=== PATIENT | male | born 1940 | race African-American/Black ===

== ENCOUNTER 2017-02-01 16:19 | Inpatient (IN) | payer MEDICARE, OTHER ==
[~2017-02-01] VITALS: Ht 172.7 cm; Wt 58.5 kg
[~2017-02-01 16:19] MED LIST: FLOMAX0.4 MG ORAL; NAMENDA5 MG ORAL
[2017-02-01 16:27] VITALS: BP 138/74
[2017-02-01] MEDS ORDERED: LORazepam Inj 2mg/ml 1ml IV ONE ×2 (16:30→17:15)
[2017-02-01 17:37] LABS: MEAN CORPUSCULAR HEMOGLOBIN 30.2 PG (27.0-31.0); MEAN CORPUSCULAR HGB CONC 32.3 G/DL (32.0-36.0); MEAN CORPUSCULAR VOLUME 93 FL (80-99); MEAN PLATELET VOLUME 10.8 FL (6.5-10.1); PLATELET COUNT 76 K/UL (150-450); RED BLOOD COUNT 4.69 M/UL (4.70-6.10); RED CELL DISTRIBUTION WIDTH 12.3 % (11.6-14.8); WHITE BLOOD COUNT 2.7 K/UL (4.8-10.8)
[2017-02-01 17:39] LABS: ALANINE AMINOTRANSFERASE 16 U/L (12-78); ALBUMIN/GLOBULIN RATIO 0.7 (1.0-2.7); ANION GAP 6 mmol/L (5-15); ASPARTATE AMINO TRANSFERASE 44 U/L (15-37); CARBON DIOXIDE 26 MMOL/L (21-32); CHLORIDE 107 MMOL/L (98-107); CREATININE 0.9 MG/DL (0.55-1.30); LIPASE 135 U/L (73-393); REFLEX LACTIC ACID YES OR NO YES; SODIUM 140 MMOL/L (136-145); TOTAL PROTEIN 7.6 G/DL (6.4-8.2)
[2017-02-01 17:42] LABS: POTASSIUM 6.2 MMOL/L (3.5-5.1)
[2017-02-01] MEDS ORDERED: NAMENDA5 MG ORAL (17:42)
--- NOTE | 2017-02-01 18:01 | Emergency Room Report ---
History of Present Illness General Chief Complaint: Syncope Source: Family Member, EMS Present Illness HPI Patient episode where he lost consciousness. Family also claimed that there was some jerking activity to paramedics but they don't think this was a seizure. He's never had an episode like this before. Although, recently, he has had episodes where he shouts out like at the beginning of this Accucheck normal in field. He pulled out IV and was somewhat combative with EMS. Head trauma denied. The patient suffers from Alzheimer's dementia. Daughter reports episodes where he gets a reaction which seemed to "come and from the is abdomen". Today this occurred with tightening up with his arms which were clenched in front of himself in a flexed position. She states he was unresponsive at that time. This lasted less than a minute. He had decreased mentation and was more combativeness afterwards. She states that he is usually ambulatory. Incontinent - wears diaper. Further history unavailable. Allergies: Coded Allergies: NO KNOWN DRUG ALLERGIES (Unverified Allergy, Unknown, 03/22/14) Patient History Limited by: medical condition Past Medical History: see triage record, old chart reviewed Social History Narrative Daughter states no POLST, but requests DNR. Reviewed Nursing Documentation: PMH: Agreed, PSxH: Agreed Nursing Documentation-PMH Hx Cardiac Problems: No Hx Cancer: Yes Hx Gastrointestinal Problems: No Hx Neurological Problems: Yes - ALZMER Hx Dementia: Yes Hx Alzheimer's Disease: Yes Hx Memory Loss: Yes Review of Systems All Other Systems: limited Physical Exam Vital Signs Date Time Temp Pulse Resp B/P (MAP) Pulse Ox O2 Delivery O2 Flow Rate FiO2 02/01/17 16:17 87 20 100/52 98 Room Air Sp02 EP Interpretation: reviewed, normal General Appearance: alert - with eyes closed, non-toxic, thin, other - GCS 2/2/ 5, Chronically Ill Head: normocephalic Eyes: bilateral eye normal inspection ENT: moist mucus membranes Neck: supple Respiratory: lungs clear, normal breath sounds Cardiovascular #1: regular rate, rhythm Cardiovascular #2: 2+ radial (R) Gastrointestinal: normal inspection, normal bowel sounds, non tender, no mass, non-distended, scaphoid Musculoskeletal: back normal, other - strophy Neurologic: responsive, motor strength/tone normal, sensory intact Reflexes: 2+ knee (R), 2+ knee (L) Skin: normal inspection, warm/dry Medical Decision Making Diagnostic Impression: Primary Impression: Altered mental status Qualified Codes: R40.2420 - Tali coma scale score 9-12, unspecified time Additional Impression: Elevated lactic acid level ER Course Patient with decreased mentation from fairly vegetative state preceded by vocalization and muscle rigidity. DDx: seizure, syncope, arrhythmia, AMI, electrolyte abnormality, bleed, occult infection amongst others. Complex patient with acute change. Will treat with ativan for possible seizure as well as some sedation as fighting with staff. Evaluation with EKG, CT, CXR, labs. EKG no injury. CXR with chronic changes R base (unchanged). Labs with slightly elevated lactate, normal WBC and initial potassium high (hemolyzed) with normal renal function and EKG with high K changes. Repeat potassium. CT without acute changes (required some sedation to perform). No ID source of infection. Lactate could be other evidence of occult seizure. Repeat K normal. Call to Dr. Dewitt. Needs observation and neurologic evaluation to determine if this is occult seizure activity. Discussed findings with family. Admit telemetry Dr. Dewitt. Laboratory Tests Test 02/01/17 16:55 02/01/17 17:35 02/01/17 18:15 White Blood Count 2.7 K/UL (4.8-10.8) L Red Blood Count 4.69 M/UL (4.70-6.10) L Hemoglobin 14.2 G/DL (14.2-18.0) Hematocrit 43.8 % (42.0-52.0) Mean Corpuscular Volume 93 FL (80-99) Mean Corpuscular Hemoglobin 30.2 PG (27.0-31.0) Mean Corpuscular Hemoglobin Concent 32.3 G/DL (32.0-36.0) Red Cell Distribution Width 12.3 % (11.6-14.8) Platelet Count 76 K/UL (150-450) L Mean Platelet Volume 10.8 FL (6.5-10.1) H Neutrophils (%) (Auto) % (45.0-75.0) Lymphocytes (%) (Auto) % (20.0-45.0) Monocytes (%) (Auto) % (1.0-10.0) Eosinophils (%) (Auto) % (0.0-3.0) Basophils (%) (Auto) % (0.0-2.0) Differential Total Cells Counted 100 Neutrophils % (Manual) 34 % (45-75) L Lymphocytes % (Manual) 53 % (20-45) H Monocytes % (Manual) 13 % (1-10) H Eosinophils % (Manual) 0 % (0-3) Basophils % (Manual) 0 % (0-2) Band Neutrophils 0 % (0-8) Platelet Estimate Decreased L Platelet Morphology Normal Red Blood Cell Morphology Normal Prothrombin Time 10.0 SEC (9.30-11.50) Prothrombin Time INR 1.0 (0.9-1.1) PTT 22 SEC (23-33) L Sodium Level 140 MMOL/L (136-145) 142 MMOL/L (136-145) Potassium Level 6.2 MMOL/L (3.5-5.1) *H 4.2 MMOL/L (3.5-5.1) Chloride Level 107 MMOL/L (98-107) 110 MMOL/L (98-107) H Carbon Dioxide Level 26 MMOL/L (21-32) 22 MMOL/L (21-32) Anion Gap 6 mmol/L (5-15) 10 mmol/L (5-15) Blood Urea Nitrogen 10 mg/dL (7-18) 10 mg/dL (7-18) Creatinine 0.9 MG/DL (0.55-1.30) 0.9 MG/DL (0.55-1.30) Estimate Glomerular Filtration Rate mL/min (>60) mL/min (>60) Glucose Level 88 MG/DL (74-106) 85 MG/DL (74-106) Lactic Acid Level 2.50 mmol/L (0.66-2.22) H 2.30 mmol/L (0.66-2.22) H Calcium Level 9.0 MG/DL (8.5-10.1) 8.7 MG/DL (8.5-10.1) Total Bilirubin 0.6 MG/DL (0.2-1.0) Aspartate Amino Transferase (AST) 44 U/L (15-37) H Alanine Aminotransferase (ALT) 16 U/L (12-78) Alkaline Phosphatase 78 U/L (46-116) Total Creatine Kinase 202 U/L (26-308) Troponin I 0.000 ng/mL (0.000-0.056) Pro-B-Type Natriuretic Peptide 39 pg/mL (0-125) Total Protein 7.6 G/DL (6.4-8.2) Albumin 3.1 G/DL (3.4-5.0) L Globulin 4.5 g/dL Albumin/Globulin Ratio 0.7 (1.0-2.7) L Lipase 135 U/L (73-393) Urine Color Pale yellow Urine Appearance Clear Urine pH 6 (4.5-8.0) Urine Specific [place] 1.010 (1.005-1.035) Urine Protein 1+ (NEGATIVE) H Urine Glucose (UA) Negative (NEGATIVE) Urine Ketones Negative (NEGATIVE) Urine Occult Blood 2+ (NEGATIVE) H Urine Nitrite Negative (NEGATIVE) Urine Bilirubin Negative (NEGATIVE) Urine Urobilinogen Normal MG/DL (0.0-1.0) Urine Leukocyte Esterase Negative (NEGATIVE) Urine RBC 2-4 /HPF (0 - 0) H Urine WBC 0-2 /HPF (0 - 0) Urine Squamous Epithelial Cells None /LPF (NONE/OCC) Urine Amorphous Sediment Few /LPF (NONE) H Urine Bacteria Occasional /HPF (NONE) Urine Opiates Screen Negative (NEGATIVE) Urine Barbiturates Screen Negative (NEGATIVE) Phencyclidine (PCP) Screen Negative (NEGATIVE) Urine Amphetamines Screen Negative (NEGATIVE) Urine Benzodiazepines Screen Negative (NEGATIVE) Urine Cocaine Screen Negative (NEGATIVE) Urine Marijuana (THC) Screen Negative (NEGATIVE) EKG Diagnostic Results Rate: normal Rhythm: NSR ST Segments: no acute changes Rhythm Strip Diag. Results EP Interpretation: yes Rhythm: NSR, no PVC's, no ectopy Chest X-Ray Diagnostic Results Chest X-Ray Diagnostic Results : Chest X-Ray Ordered: Yes # of Views/Limited/Complete: 1 View Indication: Other Interpretation: no effusion, no pneumothorax, other - increased kumar R base Impression: Other Electronically Signed by: Jaleel Gomez MD CT/MRI/US Diagnostic Results CT/MRI/US Diagnostic Results : Imaging Test Ordered: head Impression chronic changes - hygromas Last Vital Signs Date Time Temp Pulse Resp B/P (MAP) Pulse Ox O2 Delivery O2 Flow Rate FiO2 02/02/17 00:00 97.0 75 18 117/81 96 Room Air Status: improved Disposition: ADMITTED INPATIENT Condition: Serious Referrals: JALEEL DEWITT (PCP) Jaleel Gomez M.D. Feb 01, 2017 18:01
[2017-02-01 18:06] LABS: APPEARANCE,URINE CLEAR; KETONES,URINE NEGATIVE (NEGATIVE); LEUKOCYTE ESTERASE ,URINE NEGATIVE (NEGATIVE); NITRITE,URINE NEGATIVE (NEGATIVE); PH,URINE 6 (4.5-8.0); PROTEIN,URINE 1+ (NEGATIVE); UROBILINOGEN,URINE NORMAL MG/DL (0.0-1.0)
[2017-02-01 18:20] LABS: BAND NEUTROPHILS % (MANUAL) 0 % (0-8); BASOPHILS % (MANUAL) 0 % (0-2); EOSINOPHILS % (MANUAL) 0 % (0-3); LYMPHOCYTES % (MANUAL) 53 % (20-45); NEUTROPHILS % (MANUAL) 34 % (45-75); PLATELET ESTIMATE DECREASED; TOTAL CELLS COUNTED 100
[2017-02-01 18:21] LABS: PLATELET MORPHOLOGY NORMAL
[2017-02-01 18:27] LABS: BACTERIA,URINE OCCASIONAL /HPF; WBC,URINE 0-2 /HPF (0 - 0)
[2017-02-01 18:28] LABS: AMORPHOUS SEDIMENT,UR FEW /LPF
[2017-02-01 18:51] LABS: ANION GAP 10 mmol/L (5-15); CALCIUM 8.7 MG/DL (8.5-10.1); CARBON DIOXIDE 22 MMOL/L (21-32); CHLORIDE 110 MMOL/L (98-107); CREATININE 0.9 MG/DL (0.55-1.30); POTASSIUM 4.2 MMOL/L (3.5-5.1); SODIUM 142 MMOL/L (136-145)
[2017-02-01 19:10] VITALS: BP 121/80
[2017-02-01 21:00] VITALS: BP 115/93
[2017-02-01 21:09] VITALS: BP 119/76
--- NOTE | 2017-02-01 23:01 | General Progress Note ---
Assessment/Plan Status Narrative dementia ? encephalopatjhy will gert cardiology adn neuro to eval fullnote to follow Subjective Date patient seen: Feb 01, 2017 Time patient seen: 22:59 Allergies: Coded Allergies: NO KNOWN DRUG ALLERGIES (Unverified Allergy, Unknown, 03/22/14) Objective Last 24 Hour Vital Signs Date Time Temp Pulse Resp B/P (MAP) Pulse Ox O2 Delivery O2 Flow Rate FiO2 02/01/17 21:23 97.7 78 20 119/76 98 Room Air 02/01/17 21:09 78 20 119/76 98 Room Air 02/01/17 21:00 97.0 86 18 115/93 96 Room Air 02/01/17 19:10 66 12 121/80 100 Room Air 02/01/17 16:27 97.7 71 14 138/74 100 Room Air 02/01/17 16:17 87 20 100/52 98 Room Air Intake and Output 02/01/17 02/02/17 19:00 07:00 Intake Total 1000 ml Output Total 100 ml Balance 900 ml Intake IV Total 1000 ml Output Urine Total 100 ml # Voids 1 Laboratory Tests 02/01/17 16:55: White Blood Count 2.7L, Red Blood Count 4.69L, Hemoglobin 14.2, Hematocrit 43.8 , Mean Corpuscular Volume 93, Mean Corpuscular Hemoglobin 30.2, Mean Corpuscular Hemoglobin Concent 32.3, Red Cell Distribution Width 12.3, Platelet Count 76L, Mean Platelet Volume 10.8H, Neutrophils (%) (Auto) , Lymphocytes (%) (Auto) , Monocytes (%) (Auto) , Eosinophils (%) (Auto) , Basophils (%) (Auto) , Differential Total Cells Counted 100, Neutrophils % (Manual) 34L, Lymphocytes % (Manual) 53H, Monocytes % (Manual) 13H, Eosinophils % (Manual) 0, Basophils % ( Manual) 0, Band Neutrophils 0, Platelet Estimate DecreasedL, Platelet Morphology Normal, Red Blood Cell Morphology Normal, Prothrombin Time 10.0, Prothromb Time International Ratio 1.0, Activated Partial Thromboplast Time 22L , Sodium Level 140, Potassium Level 6.2*H, Chloride Level 107, Carbon Dioxide Level 26, Anion Gap 6, Blood Urea Nitrogen 10, Creatinine 0.9, Estimat Glomerular Filtration Rate , Glucose Level 88, Lactic Acid Level 2.50H, Calcium Level 9.0, Total Bilirubin 0.6, Aspartate Amino Transf (AST/SGOT) 44H, Alanine Aminotransferase (ALT/SGPT) 16, Alkaline Phosphatase 78, Total Creatine Kinase 202, Troponin I 0.000, Pro-B-Type Natriuretic Peptide 39, Total Protein 7.6, Albumin 3.1L, Globulin 4.5, Albumin/Globulin Ratio 0.7L, Lipase 135 02/01/17 17:35: Urine Color Pale yellow, Urine Appearance Clear, Urine pH 6, Urine Specific [place] 1.010, Urine Protein 1+H, Urine Glucose (UA) Negative, Urine Ketones Negative, Urine Occult Blood 2+H, Urine Nitrite Negative, Urine Bilirubin Negative, Urine Urobilinogen Normal, Urine Leukocyte Esterase Negative, Urine RBC 2-4H, Urine WBC 0-2, Urine Squamous Epithelial Cells None, Urine Amorphous Sediment FewH, Urine Bacteria Occasional, Urine Opiates Screen Negative, Urine Barbiturates Screen Negative, Phencyclidine (PCP) Screen Negative, Urine Amphetamines Screen Negative, Urine Benzodiazepines Screen Negative, Urine Cocaine Screen Negative, Urine Marijuana (THC) Screen Negative 02/01/17 18:15: Sodium Level 142, Potassium Level 4.2, Chloride Level 110H, Carbon Dioxide Level 22, Anion Gap 10, Blood Urea Nitrogen 10, Creatinine 0.9, Estimat Glomerular Filtration Rate , Glucose Level 85, Lactic Acid Level 2.30H, Calcium Level 8.7 Height (Feet): 5 Height (Inches): 8.00 Weight (Pounds): 160 General Appearance: WD/WN Neck: supple Cardiovascular: no JVD Respiratory/Chest: lungs clear Abdomen: soft, no organomegaly Extremities: no calf tenderness, other TOMEKA COLMENARES Feb 01, 2017 23:01
[2017-02-02] VITALS: BP 117/81
[2017-02-02 04:00] VITALS: BP 101/56
[2017-02-02 05:53] LABS: BASOPHILS % (AUTO) 0.7 % (0.0-2.0); EOSINOPHILS % (AUTO) 0.5 % (0.0-3.0); LYMPHOCYTES % (AUTO) 30.3 % (20.0-45.0); MEAN CORPUSCULAR HEMOGLOBIN 30.5 PG (27.0-31.0); MEAN CORPUSCULAR HGB CONC 32.8 G/DL (32.0-36.0); MEAN CORPUSCULAR VOLUME 93 FL (80-99); MEAN PLATELET VOLUME 8.2 FL (6.5-10.1); NEUTROPHILS % (AUTO) 58.4 % (45.0-75.0); PLATELET COUNT 188 K/UL (150-450); RED CELL DISTRIBUTION WIDTH 12.1 % (11.6-14.8); WHITE BLOOD COUNT 4.6 K/UL (4.8-10.8)
[2017-02-02 06:20] LABS: ALANINE AMINOTRANSFERASE 15 U/L (12-78); ALBUMIN/GLOBULIN RATIO 0.7 (1.0-2.7); ANION GAP 8 mmol/L (5-15); ASPARTATE AMINO TRANSFERASE 27 U/L (15-37); CALCIUM 8.4 MG/DL (8.5-10.1); CARBON DIOXIDE 24 MMOL/L (21-32); CHLORIDE 110 MMOL/L (98-107); CREATININE 0.9 MG/DL (0.55-1.30); POTASSIUM 3.6 MMOL/L (3.5-5.1); SODIUM 142 MMOL/L (136-145); TOTAL PROTEIN 7.2 G/DL (6.4-8.2)
[2017-02-02] MEDS: Memantine 10mg tab ORAL SCH ×2 (07:59→21:44)
[2017-02-02 08:00] VITALS: BP 112/64
[2017-02-02] MEDS ORDERED: Heparin 5000 units/ml inj SUBQ SCH (09:00)
--- NOTE | 2017-02-02 09:54 | Diagnostic Imaging Report ---
Indications: Altered mental status Technique: Spiral acquisitions obtained through the brain. Angled axial and coronal 5 x 5 mm slices were reconstructed. Total dose length product 1921 mGycm. CTDI vol(s) centimeters to mGy. Dose reduction achieved using automated exposure control Comparison: 03/22/2014 Findings: Again demonstrated is age-related enlargement of the ventricles and extra axial CSF spaces, the latter predominantly in the lateral frontal regions and slightly increased from the previous exam. Again demonstrated is minimal periventricular deep white matter low-attenuation. No acute intracranial hemorrhage or edema. No mass effect or midline shift. Visualized orbits and sinuses are unremarkable. The calvarium is intact.. Impression: Chronic and age-related changes. Negative for acute bleed or mass effect This agrees with the preliminary interpretation provided overnight by Dr. Meyer The CT scanner at [facility] is accredited by the [place] and the scans are performed using protocols designed to limit radiation exposure to as low as reasonably achievable to attain images of sufficient resolution adequate for diagnostic evaluation.
[2017-02-02 12:00] VITALS: BP 105/54
--- NOTE | 2017-02-02 12:32 | Diagnostic Imaging Report ---
Indication: Shortness of breath Technique: One view of the chest Comparison: 03/25/2014 Findings: Inspiration is suboptimal, with some crowding of bronchovascular markings at the lung bases. No definite acute infiltrates, effusions, or congestion. It was normal heart size. Impression: No definite acute process. This agrees with the preliminary interpretation provided by the emergency room physician
[2017-02-02 16:00] VITALS: BP 102/59
--- NOTE | 2017-02-02 19:50 | History and Physical ---
History of Present Illness General Date patient seen: Feb 02, 2017 Time patient seen: 19:47 Reason for Hospitalization: Syncope Present Illness HPI thisis naunfortunate male with historyof prostate cancer and dementia Patient episode where he lost consciousness. Family also claimed that there was some jerking activity to paramedics but they don't think this was a seizure. He's never had an episode like this before. Although, recently, he has had episodes where he shouts out like at the beginning of this Accucheck normal in field. He pulled out IV and was somewhat combative with EMS. Head trauma denied. he was seenint er had ct scan of camila no stroke he is actully more alert now Allergies: Coded Allergies: NO KNOWN DRUG ALLERGIES (Unverified Allergy, Unknown, 03/22/14) Medication History Scheduled Memantine Hcl* (Namenda*), 10 MG ORAL TWICE A DAY, (Reported) Discontinued Medications Tamsulosin HCl (Flomax), 0.4 MG ORAL DAILY, (Reported) Discontinued Reason: Pt stopped taking med Patient History Limited by: other - he ios desi barber communicatibvee History Provided By: Patient, Family Member Healthcare decision maker Resuscitation status Full Code Advanced Directive on File Review of Systems ROS Narrative unalbe to get review of sysstem h is not talkative Physical Exam General Appearance: WD/WN HEENT: normocephalic Neck: non-tender Respiratory/Chest: lungs clear Cardiovascular/Chest: normal rate, regular rhythm, no JVD Abdomen: soft Last 24 Hour Vital Signs Date Time Temp Pulse Resp B/P (MAP) Pulse Ox O2 Delivery O2 Flow Rate FiO2 02/02/17 16:00 97.0 89 20 102/59 96 02/02/17 12:00 69 02/02/17 12:00 97.9 88 21 105/54 97 02/02/17 08:00 97.8 76 20 112/64 97 Room Air 02/02/17 08:00 65 02/02/17 04:00 69 02/02/17 04:00 97.8 73 20 101/56 97 Room Air 02/02/17 00:00 97.0 75 18 117/81 96 Room Air 02/02/17 00:00 73 02/01/17 21:55 82 02/01/17 21:23 97.7 78 20 119/76 98 Room Air 02/01/17 21:09 78 20 119/76 98 Room Air 02/01/17 21:00 97.0 86 18 115/93 96 Room Air Intake and Output 02/02/17 02/03/17 19:00 07:00 Intake Total 500 ml Balance 500 ml Intake Oral 500 ml # Voids 1 Laboratory Tests Test 02/02/17 04:15 02/02/17 12:00 White Blood Count 4.6 K/UL (4.8-10.8) #L Red Blood Count 4.60 M/UL (4.70-6.10) L Hemoglobin 14.0 G/DL (14.2-18.0) L Hematocrit 42.8 % (42.0-52.0) Mean Corpuscular Volume 93 FL (80-99) Mean Corpuscular Hemoglobin 30.5 PG (27.0-31.0) Mean Corpuscular Hemoglobin Concent 32.8 G/DL (32.0-36.0) Red Cell Distribution Width 12.1 % (11.6-14.8) Platelet Count 188 K/UL (150-450) # Mean Platelet Volume 8.2 FL (6.5-10.1) Neutrophils (%) (Auto) 58.4 % (45.0-75.0) Lymphocytes (%) (Auto) 30.3 % (20.0-45.0) Monocytes (%) (Auto) 10.0 % (1.0-10.0) Eosinophils (%) (Auto) 0.5 % (0.0-3.0) Basophils (%) (Auto) 0.7 % (0.0-2.0) Sodium Level 142 MMOL/L (136-145) Potassium Level 3.6 MMOL/L (3.5-5.1) Chloride Level 110 MMOL/L (98-107) H Carbon Dioxide Level 24 MMOL/L (21-32) Anion Gap 8 mmol/L (5-15) Blood Urea Nitrogen 8 mg/dL (7-18) Creatinine 0.9 MG/DL (0.55-1.30) Estimat Glomerular Filtration Rate mL/min (>60) Glucose Level 82 MG/DL (74-106) Calcium Level 8.4 MG/DL (8.5-10.1) L Total Bilirubin 0.5 MG/DL (0.2-1.0) Aspartate Amino Transf (AST/SGOT) 27 U/L (15-37) Alanine Aminotransferase (ALT/SGPT) 15 U/L (12-78) Alkaline Phosphatase 77 U/L (46-116) Troponin I 0.036 ng/mL (0.000-0.056) 0.013 ng/mL (0.000-0.056) Total Protein 7.2 G/DL (6.4-8.2) Albumin 3.0 G/DL (3.4-5.0) L Globulin 4.2 g/dL Albumin/Globulin Ratio 0.7 (1.0-2.7) L Height (Feet): 5 Height (Inches): 8.00 Weight (Pounds): 129 Medications Current Medications Medications (Trade) Dose Ordered Sig/Alirio Route PRN Reason Start Time Stop Time Status Last Admin Dose Admin Memantine (Namenda) 10 mg BID@0900,2100 ORAL 02/02/17 09:00 03/04/17 08:59 02/02/17 07:59 Assessment/Plan Status Narrative an episode of dejavou and or possibel syncope heis 76 and very demnted further assesment is not indicated consider respide care so can get few days off consider pt ot speech eval and send for rehab to custodial TOMEKA COLMENARES Feb 02, 2017 19:50
[2017-02-02 20:00] VITALS: BP 119/77
[2017-02-03] VITALS: BP 129/68
[2017-02-03 04:00] VITALS: BP 110/74
[2017-02-03 08:00] VITALS: BP 102/65
[2017-02-03] MEDS: Memantine 10mg tab ORAL SCH ×2 (08:45→21:53)
[2017-02-03 12:25] VITALS: BP 110/72
[2017-02-03 16:00] VITALS: BP 125/70
--- NOTE | 2017-02-03 17:05 | Cardiology Report ---
APPROVED REPORT EKG Measurement Heart [id number] Normal sinus rhythm Left axis deviation Abnormal ECG
[2017-02-03] MEDS ORDERED: MELATONIN5 M6 PO (17:53)
--- NOTE | 2017-02-03 19:41 | General Progress Note ---
Assessment/Plan Status Narrative ? spresyuncope and or de javoue dementia delirium encipahlopthy prostate ancer better dc to [facility] for pt Subjective Date patient seen: Feb 03, 2017 Time patient seen: 19:40 Constitutional: Reports: no symptoms HEENT: Reports: no symptoms Allergies: Coded Allergies: NO KNOWN DRUG ALLERGIES (Unverified Allergy, Unknown, 03/22/14) Objective Last 24 Hour Vital Signs Date Time Temp Pulse Resp B/P (MAP) Pulse Ox O2 Delivery O2 Flow Rate FiO2 02/03/17 16:00 97.5 80 19 125/70 Room Air 02/03/17 16:00 76 02/03/17 12:25 97.0 68 18 110/72 97 02/03/17 12:00 66 02/03/17 08:00 96.5 76 18 102/65 Room Air 02/03/17 08:00 69 02/03/17 04:00 77 02/03/17 04:00 97.9 97 20 110/74 96 Room Air 02/03/17 00:00 97.7 88 20 129/68 97 Room Air 02/03/17 00:00 93 02/02/17 20:00 72 02/02/17 20:00 97.5 98 20 119/77 96 Room Air Intake and Output 02/03/17 02/04/17 19:00 07:00 Intake Total 120 ml Balance 120 ml Intake Oral 120 ml # Voids 1 Laboratory Tests 02/02/17 19:45: Troponin I 0.012 Height (Feet): 5 Height (Inches): 8.00 Weight (Pounds): 129 General Appearance: WD/WN Neck: non-tender, supple Cardiovascular: no JVD Respiratory/Chest: lungs clear Abdomen: non tender, soft TOMEKA COLMENARES Feb 03, 2017 19:41
[2017-02-03 20:34] VITALS: BP 142/78
[2017-02-04 00:44] VITALS: BP 130/83
[2017-02-04 08:19] VITALS: BP 122/48
[2017-02-04] MEDS: Memantine 10mg tab ORAL SCH (09:00)
[2017-02-04 12:02] VITALS: BP 120/74
[2017-02-04 15:50] VITALS: BP 117/78
--- NOTE | 2017-02-07 08:52 | Discharge Summary ---
Discharge Summary Hospital Course Date of Admission Feb 01, 2017 at 17:26 Date of Discharge Feb 04, 2017 at 16:30 Admitting Diagnosis ALTERED MENTAL STATUS HPI Dmitry Felipe is a 76 year old male who was admitted on Feb 01, 2017 at 17:26 for Altered Mental Status Hospital Course dc summary #[id number] Discharge Medications Continued Medications: Melatonin (Melatonin) 5 Mg Tab.ir.er 5 MG PO QHS for Insomnia Memantine Hcl* (Namenda*) 5 Mg Tablet 10 MG ORAL TWICE A DAY, TAB Discharge Condition Upon Discharge: stable Discharge Disposition Patient was discharged to SNF/Subacute Facility(03) Discharge Diagnoses: Discharge Instructions Discharge Instructions Special Instructions I have been assigned to complete a D/C Summary on this account. I was not involved in the patient management Jessy Maxwell NP (Vanchtein) Feb 07, 2017 08:52
--- NOTE | 2017-02-08 04:00 | Discharge Summary 2 SIG ---
DATE OF ADMISSION: 02/01/2017 DATE OF DISCHARGE: 02/04/2017 REASON FOR ADMISSION: 76-year-old male with Alzheimer dementia and prostate cancer, presented to emergency department after episode described as presyncope. Family did not think it was seizure. Accu-Chek was normal in the field. The patient was combative with paramedics. No head trauma. In ED vital signs were stable. Laboratory workup showed elevated lactic acid -2.5 and elevated potassium - 6.2. Repeated BMP revealed normal potassium, likely hemolyzed the first specimen. No Leukocytosis. Stable renal parameters. Chest x-ray showed chronic changes in the right base. EKG revealed normal sinus rhythm. No acute ischemic changes. CT of the head revealed no acute ischemic changes. The patient required sedation to perform CT scan. No source of infection was identified. Urinalysis negative. Lactic acid rechecked - 2.3. The patient was admitted with diagnosis of altered mental status, elevated lactic acid for further management and placement. HOSPITAL COURSE: The patient admitted. The patient started on physical and occupational therapy. Speech therapy evaluation was requested. The patient had no overt signs of dysphagia, however, due to the cognitive impairment, had a difficult time with feeding. Recommended strict aspiration/reflux precaution, one-to-one feeding. Diet changed as per speech therapy evaluation. Serial troponins were negative. Urine toxicology screen was negative. Calcium level was stable. Laboratory workup otherwise was unremarkable. Place was found, [facility]. While in the hospital, Namenda was continued. DVT prophylaxis provided. The patient was stable for discharge. The patient was provided with IV hydration. FINAL DIAGNOSES: 1. Possible presyncope. 2. Encephalopathy. 3. Alzheimer dementia. 4. Delirium. 5. Prostate cancer. DISCHARGE MEDICATIONS: See medication reconciliation list. DISCHARGE INSTRUCTIONS: The patient was discharged to [facility]. Follow up with medical doctor at the facility. Jaleel Dewitt M.D. I have been assigned to dictate discharge summary on this account and I was not involved in the patient's management. Jessy Maxwell N.P. (Vanchtein) DR: Porfirio JOB#: [id number] CC: CORDELIA
== END 2017-02-04 16:30 | DRG 72 ==
LOC: EDBD 16:19 → EMR 17:15 → 2E 17:26 → EDBEDREQ 17:36 → 2E 22:41
DX: G93.40 Encephalopathy, unspecified (principal); G30.9 Alzheimer's disease, unspecified; F02.80 Dementia in other diseases classified elsewhere, unspecified severity, without behavioral disturbance, psychotic disturbance, mood disturbance, and anxiety; R32 Unspecified urinary incontinence; Z85.46 Personal history of malignant neoplasm of prostate; R41.0 Disorientation, unspecified; R55 Syncope and collapse
CPT/HCPCS: 36415; 70450; 71010; 80048; 80053; 80307; 81003; 82550; 83605; 83690; 83880; 84484; 85007; 85025; 85610; 85730; 87040; 93005; 99285

== ENCOUNTER 2018-09-09 12:00 | Inpatient (IN) | payer MEDICARE, OTHER ==
[~2018-09-09] VITALS: Ht 165.1 cm; Wt 45.4 kg
[~2018-09-09 12:00] MED LIST changes: +MELATONIN5 M6 PO
--- NOTE | 2018-09-09 12:00 | NUR ---
ED Nurse Note: patient brought in to ER by ambulance from home due to failure to thrive. per , pt has had decreased appetite and general weakness noted. pt aao x 0 and nonverbal and bedbound. skin dry but clean and intact. flat affect and lethargic. pt opens eye spontaneously. vss as documented.
--- NOTE | 2018-09-09 12:02 | NUR ---
ED Nurse Note: checked pt's posterior skin. pressure ulcer noted. picture taken and it will be uploaded. and son witnessed together.
[2018-09-09 12:34] VITALS: BP 126/79
--- NOTE | 2018-09-09 12:37 | NUR ---
ED Nurse Note: x-ray at bedside.
[2018-09-09 12:59] LABS: BASOPHILS % (AUTO) 0.8 % (0.0-2.0); EOSINOPHILS % (AUTO) 0.1 % (0.0-3.0); HEMOGLOBIN 14.6 G/DL (14.2-18.0); LYMPHOCYTES % (AUTO) 11.5 % (20.0-45.0); MEAN CORPUSCULAR VOLUME 94 FL (80-99); NEUTROPHILS % (AUTO) 81.5 % (45.0-75.0); PLATELET COUNT 299 K/UL (150-450); RED BLOOD COUNT 5.01 M/UL (4.70-6.10); RED CELL DISTRIBUTION WIDTH 12.2 % (11.6-14.8); WHITE BLOOD COUNT 9.2 K/UL (4.8-10.8)
[2018-09-09 13:07] LABS: ANION GAP 11 mmol/L (5-15); BLOOD UREA NITROGEN 21 mg/dL (7-18); CALCIUM 9.8 MG/DL (8.5-10.1); CARBON DIOXIDE 30 MMOL/L (21-32); CHLORIDE 112 MMOL/L (98-107); CREATININE 1.3 MG/DL (0.55-1.30); POTASSIUM 4.2 MMOL/L (3.5-5.1); SODIUM 153 MMOL/L (136-145)
[2018-09-09 13:09] VITALS: BP 120/83
--- NOTE | 2018-09-09 13:11 | Emergency Room Report ---
History of Present Illness General Chief Complaint: Generalized Weakness Source: Family Member Present Illness HPI Patient was sent by paramedics for continued deterioration Patient has not been eating or drinking over the past several days Was getting previously set for evaluation for feeding tube however as his symptoms continue to worsen family was concerned and called paramedics There was no reports of vomiting or diarrhea Family denies any fevers Allergies: Coded Allergies: NO KNOWN DRUG ALLERGIES (Unverified Allergy, Unknown, 03/22/14) Patient History Past Medical History: see triage record Pertinent Family History: none Reviewed Nursing Documentation: PMH: Agreed; PSxH: Agreed Nursing Documentation-PMH Past Medical History: No History, Except For Hx Cardiac Problems: No - Alzheimer Hx Cancer: Yes Hx Gastrointestinal Problems: No Hx Neurological Problems: Yes Hx Dementia: Yes Hx Alzheimer's Disease: Yes Hx Memory Loss: Yes Review of Systems All Other Systems: negative except mentioned in HPI Physical Exam Vital Signs Date Time Temp Pulse Resp B/P (MAP) Pulse Ox O2 Delivery O2 Flow Rate FiO2 09/09/18 11:52 97.9 102 20 112/72 (85) 98 Room Air Sp02 EP Interpretation: reviewed, normal General Appearance: thin Head: normocephalic, atraumatic Eyes: bilateral eye PERRL, bilateral eye EOMI ENT: dry mucus membranes Neck: supple Respiratory: lungs clear, no respiratory distress, no retraction Cardiovascular #1: regular rate, rhythm Gastrointestinal: non tender, soft, other - Cachectic appearing Musculoskeletal: other - Patient extremely weak does not follow commands is not verbal Neurologic: responsive - To physical stimuli Skin: other - Poor turgor Lymphatic: no adenopathy Medical Decision Making Diagnostic Impression: Primary Impression: Dehydration Additional Impression: Weakness ER Course Given the patient's history and presentation multiple differentials are in consideration Patient is a DNR status Total CK is significantly elevated patient requires further IV hydration x-ray shows patchy opacities concerning for possible infiltrate versus other patient further hydrated And at this time requires further inpatient care Labs Test 09/09/18 12:29 09/09/18 13:10 09/10/18 09:07 White Blood Count 9.2 K/UL (4.8-10.8) Red Blood Count 5.01 M/UL (4.70-6.10) Hemoglobin 14.6 G/DL (14.2-18.0) Hematocrit 47.0 % (42.0-52.0) Mean Corpuscular Volume 94 FL (80-99) Mean Corpuscular Hemoglobin 29.1 PG (27.0-31.0) Mean Corpuscular Hemoglobin Concent 31.0 G/DL (32.0-36.0) Red Cell Distribution Width 12.2 % (11.6-14.8) Platelet Count 299 K/UL (150-450) Mean Platelet Volume 6.8 FL (6.5-10.1) Neutrophils (%) (Auto) 81.5 % (45.0-75.0) Lymphocytes (%) (Auto) 11.5 % (20.0-45.0) Monocytes (%) (Auto) 6.0 % (1.0-10.0) Eosinophils (%) (Auto) 0.1 % (0.0-3.0) Basophils (%) (Auto) 0.8 % (0.0-2.0) Sodium Level 153 MMOL/L (136-145) 150 MMOL/L (136-145) Potassium Level 4.2 MMOL/L (3.5-5.1) 3.7 MMOL/L (3.5-5.1) Chloride Level 112 MMOL/L (98-107) 115 MMOL/L (98-107) Carbon Dioxide Level 30 MMOL/L (21-32) 26 MMOL/L (21-32) Anion Gap 11 mmol/L (5-15) 9 mmol/L (5-15) Blood Urea Nitrogen 21 mg/dL (7-18) 17 mg/dL (7-18) Creatinine 1.3 MG/DL (0.55-1.30) 0.8 MG/DL (0.55-1.30) Estimat Glomerular Filtration Rate mL/min (>60) mL/min (>60) Glucose Level 148 MG/DL (74-106) 104 MG/DL (74-106) Lactic Acid Level 1.50 mmol/L (0.4-2.0) Calcium Level 9.8 MG/DL (8.5-10.1) 9.5 MG/DL (8.5-10.1) Total Bilirubin 0.6 MG/DL (0.2-1.0) Aspartate Amino Transf (AST/SGOT) 49 U/L (15-37) Alanine Aminotransferase (ALT/SGPT) 35 U/L (12-78) Alkaline Phosphatase 97 U/L (46-116) Total Creatine Kinase 1143 U/L (26-308) Creatine Kinase MB < 0.5 NG/ML (0.0-3.6) Creatine Kinase MB Relative Index Troponin I 0.043 ng/mL (0.000-0.056) Total Protein 8.4 G/DL (6.4-8.2) Albumin 2.5 G/DL (3.4-5.0) Globulin 5.9 g/dL Albumin/Globulin Ratio 0.4 (1.0-2.7) Lipase 151 U/L (73-393) Thyroid Stimulating Hormone (TSH) 0.666 uiU/mL (0.358-3.740) Urine Color Brown Urine Appearance Clear Urine pH 6 (4.5-8.0) Urine Specific [place] 1.010 (1.005-1.035) Urine Protein 2+ (NEGATIVE) Urine Glucose (UA) Negative (NEGATIVE) Urine Ketones Negative (NEGATIVE) Urine Blood 1+ (NEGATIVE) Urine Nitrite Negative (NEGATIVE) Urine Bilirubin Negative (NEGATIVE) Urine Urobilinogen 4 MG/DL (0.0-1.0) Urine Leukocyte Esterase 1+ (NEGATIVE) Urine RBC 2-4 /HPF (0 - 0) Urine WBC 0-2 /HPF (0 - 0) Urine Squamous Epithelial Cells Occasional /LPF Urine Bacteria Few /HPF (NONE) Prostate Specific Antigen 0.17 ng/mL (0.13-4.0) Rhythm Strip Diag. Results EP Interpretation: yes Rate: 88 Rhythm: NSR, no PVC's, no ectopy Chest X-Ray Diagnostic Results Chest X-Ray Diagnostic Results : Chest X-Ray Ordered: Yes # of Views/Limited/Complete: 1 View Indication: Chest Pain EP Interpretation: Yes Interpretation: no effusion, no pneumothorax, other - Bilateral patchy markings Impression: Other - Bilateral patchy markings Electronically Signed by: antwon zheng DO Last Vital Signs Date Time Temp Pulse Resp B/P (MAP) Pulse Ox O2 Delivery O2 Flow Rate FiO2 09/09/18 12:34 80 19 126/79 96 Room Air 09/09/18 11:52 97.9 Status: improved Disposition: ADMITTED INPATIENT Condition: Serious Referrals: Jaleel Dewitt MD (PCP) Antwon Zheng DO Sep 09, 2018 13:11
[2018-09-09 13:20] LABS: ALANINE AMINOTRANSFERASE 35 U/L (12-78); ALBUMIN 2.5 G/DL (3.4-5.0); ALBUMIN/GLOBULIN RATIO 0.4 (1.0-2.7); ALKALINE PHOSPHATASE 97 U/L (46-116); ASPARTATE AMINO TRANSFERASE 49 U/L (15-37); BILIRUBIN,TOTAL 0.6 MG/DL (0.2-1.0); CKMB < 0.5 NG/ML (0.0-3.6); CREATINE KINASE 1143 U/L (26-308)
[2018-09-09] MEDS ORDERED: NAMENDA10 MG ORAL (13:22)
[2018-09-09] MEDS ORDERED: KEPPRA500 M4 ORAL (13:24)
[2018-09-09] MEDS ORDERED: KEPPRA500 MG ORAL (13:24)
[2018-09-09 13:34] LABS: APPEARANCE,URINE CLEAR; BILIRUBIN, URINE NEGATIVE (NEGATIVE); COLOR,URINE BROWN; GLUCOSE, URINE (UA) NEGATIVE (NEGATIVE); KETONES,URINE NEGATIVE (NEGATIVE); LEUKOCYTE ESTERASE ,URINE 1+ (NEGATIVE); NITRITE,URINE NEGATIVE (NEGATIVE); PH,URINE 6 (4.5-8.0); PROTEIN,URINE 2+ (NEGATIVE); UROBILINOGEN,URINE 4 MG/DL (0.0-1.0)
--- NOTE | 2018-09-09 13:40 | NUR ---
ED Nurse Note: called for report. unable to give report. will attempt again.
--- NOTE | 2018-09-09 13:55 | NUR ---
ED Nurse Note: report given to KATEY Abad
--- NOTE | 2018-09-09 14:20 | NUR ---
ED Nurse Note: pt left unit with 1 explosive technician in stable condition.
--- NOTE | 2018-09-09 15:30 | NUR ---
NURSE NOTES: Pt accompanied by , on bri. Pt is non verbal , non responsive to touch per , . Per pt pt has not eaten in several days. Admitted with area of concern stage 2 to sacral area. Pt is breathing room air. Does not respond to commands. Unable to assess muscle strength . states that pt has not had sz medication , education on risk of aspiration 2 to baseline. Follow up will be made with Dr Dewitt. Dr Dewitt provided admitting orders. Per does not want to be resuscitated.
--- NOTE | 2018-09-09 16:39 | NUR ---
NURSE NOTES: Dr Dewitt called to inquire on route of keppra pt is unable to swallow. Gave orders to give same dosage in iv form. Keppra 500 mg IV 12 hours
[2018-09-09] MEDS ORDERED: D5 1/2NS w/KCl 20mEq 1,000 ML IV SCH (17:00)
[2018-09-09] MEDS ORDERED: Memantine 10mg tab ORAL SCH (18:00)
[2018-09-09] MEDS: Memantine 10mg tab ORAL SCH (18:00)
--- NOTE | 2018-09-09 19:30 | NUR ---
NURSE NOTES: RECEIVED PATIENT LYING IN BED, EYES OPEN, NON VERBAL, DOES NOT FOLLOW COMMANDS, ASPIRATION/SEIZURE PRECAUTIONS OBSERVED. FAMILY AT BEDSIDE. ALL NEEDS ANTICIPATED AND MET BY NURSING STAFF. NO SIGNS AND SYMPTOMS OF ACUTE CARDIO RESPIRATORY DISTRESS /SHORTNESS OF BREATH, NO PERIPHERAL EDEMA NOTED. RIGHT HEEL NOTED WITH DTI, ELEVATED ON 2 PILLOWS TO CREATE COMPLETE OFF LOAD. POOR PO INTAKE, NUTRITION CONSULT ORDERED. DRESSING DRY AND INTACT TO SACRAL/COCCYX. SIDE RAILS UP X3/BED IN LOWEST POSITION FOR SAFETY. CALL LIGHT WITHIN REACH. FREQUENT ROUNDING FOR SAFETY. NAD.
--- NOTE | 2018-09-09 19:46 | Consultation ---
History of Present Illness General Date patient seen: Sep 09, 2018 Reason for Hospitalization: Generalized Weakness Present Illness HPI hz of dementia and progressive worsening has not been ambulating for 2 weeks at least. Non verbal Patient has not been eating or drinking over the past 2 days Was getting previously set for evaluation for feeding tube however as his symptoms continue to worsen family was concerned and called paramedics Allergies: Coded Allergies: NO KNOWN DRUG ALLERGIES (Unverified Allergy, Unknown, 03/22/14) Medication History Scheduled Levetiracetam (Keppra), 500 MG ORAL TWICE A DAY, (Reported) Melatonin (Melatonin), 5 MG PO QHS, (Reported) Memantine Hcl* (Namenda*), 10 MG ORAL TWICE A DAY, (Reported) Memantine Hcl* (Namenda*), 10 MG ORAL TWICE A DAY, (Reported) Patient History Healthcare decision maker Ayesha Felipe Resuscitation status Do Not Resuscitate Advanced Directive on File No Review of Systems Review of Symptoms unable pt lethargic Physical Exam Physical Exam General appearance: lethargic Head: Normocephalic, without obvious abnormality, atraumatic Eyes: conjunctivae/corneas clear. PERRL Throat: Lips, mucosa, and tongue normal Neck: supple Lungs: non labored Heart: regular rate and rhythm Abdomen: soft Extremities: no cyanosis or edema Pulses: 2+ and symmetric Skin: Skin color, texture, turgor normal. Neurologic: lethargic, non verbal, does not follow, minimal withdraw in UEs, LEs with contractures Last 24 Hour Vital Signs Date Time Temp Pulse Resp B/P (MAP) Pulse Ox O2 Delivery O2 Flow Rate FiO2 09/09/18 15:06 Room Air 09/09/18 14:20 98.2 98 19 123/82 97 Room Air 09/09/18 13:09 98.2 94 19 120/83 100 Room Air 09/09/18 12:34 80 19 126/79 96 Room Air 09/09/18 12:00 96 17 Room Air 09/09/18 11:52 97.9 102 20 112/72 (85) 98 Room Air Laboratory Tests Test 09/09/18 12:29 09/09/18 13:10 White Blood Count 9.2 K/UL (4.8-10.8) Red Blood Count 5.01 M/UL (4.70-6.10) Hemoglobin 14.6 G/DL (14.2-18.0) Hematocrit 47.0 % (42.0-52.0) Mean Corpuscular Volume 94 FL (80-99) Mean Corpuscular Hemoglobin 29.1 PG (27.0-31.0) Mean Corpuscular Hemoglobin Concent 31.0 G/DL (32.0-36.0) L Red Cell Distribution Width 12.2 % (11.6-14.8) Platelet Count 299 K/UL (150-450) Mean Platelet Volume 6.8 FL (6.5-10.1) Neutrophils (%) (Auto) 81.5 % (45.0-75.0) H Lymphocytes (%) (Auto) 11.5 % (20.0-45.0) L Monocytes (%) (Auto) 6.0 % (1.0-10.0) Eosinophils (%) (Auto) 0.1 % (0.0-3.0) Basophils (%) (Auto) 0.8 % (0.0-2.0) Sodium Level 153 MMOL/L (136-145) H Potassium Level 4.2 MMOL/L (3.5-5.1) Chloride Level 112 MMOL/L (98-107) H Carbon Dioxide Level 30 MMOL/L (21-32) Anion Gap 11 mmol/L (5-15) Blood Urea Nitrogen 21 mg/dL (7-18) H Creatinine 1.3 MG/DL (0.55-1.30) Estimat Glomerular Filtration Rate mL/min (>60) Glucose Level 148 MG/DL (74-106) H Lactic Acid Level 1.50 mmol/L (0.4-2.0) Calcium Level 9.8 MG/DL (8.5-10.1) Total Bilirubin 0.6 MG/DL (0.2-1.0) Aspartate Amino Transf (AST/SGOT) 49 U/L (15-37) H Alanine Aminotransferase (ALT/SGPT) 35 U/L (12-78) Alkaline Phosphatase 97 U/L (46-116) Total Creatine Kinase 1143 U/L (26-308) H Creatine Kinase MB < 0.5 NG/ML (0.0-3.6) Creatine Kinase MB Relative Index Troponin I 0.043 ng/mL (0.000-0.056) Total Protein 8.4 G/DL (6.4-8.2) H Albumin 2.5 G/DL (3.4-5.0) L Globulin 5.9 g/dL Albumin/Globulin Ratio 0.4 (1.0-2.7) L Lipase 151 U/L (73-393) Thyroid Stimulating Hormone (TSH) 0.666 uiU/mL (0.358-3.740) Urine Color Brown Urine Appearance Clear Urine pH 6 (4.5-8.0) Urine Specific [place] 1.010 (1.005-1.035) Urine Protein 2+ (NEGATIVE) H Urine Glucose (UA) Negative (NEGATIVE) Urine Ketones Negative (NEGATIVE) Urine Blood 1+ (NEGATIVE) H Urine Nitrite Negative (NEGATIVE) Urine Bilirubin Negative (NEGATIVE) Urine Urobilinogen 4 MG/DL (0.0-1.0) H Urine Leukocyte Esterase 1+ (NEGATIVE) H Urine RBC 2-4 /HPF (0 - 0) H Urine WBC 0-2 /HPF (0 - 0) Urine Squamous Epithelial Cells Occasional /LPF Urine Bacteria Few /HPF (NONE) Height (Feet): 5 Height (Inches): 5.00 Weight (Pounds): 101 Medications Current Medications Medications (Trade) Dose Ordered Sig/Alirio Route PRN Reason Start Time Stop Time Status Last Admin Dose Admin Dextrose/ Electrolytes 1,000 ml @ 40 mls/hr Q24H IV 09/09/18 17:00 10/09/18 16:59 Levetiracetam 100 ml @ 400 mls/hr Q12HR IVPB 09/09/18 21:00 10/09/18 20:59 Memantine (Namenda) 10 mg TWICE A DAY ORAL 09/09/18 18:00 10/09/18 17:59 Assessment/Plan Problem List: (1) Pneumonia ICD Codes: J18.9 - Pneumonia, unspecified organism SNOMED: 259170041 (2) Sepsis ICD Codes: A41.9 - Sepsis SNOMED: 99196307 (3) Altered mental status ICD Codes: R41.82 - Altered mental status, unspecified SNOMED: 232454731 (4) Weakness ICD Codes: R53.1 - Weakness SNOMED: 18491579 (5) Dehydration ICD Codes: E86.0 - Dehydration SNOMED: 82298913 Assessment/Plan: acute encephalopathy likely metabolic sepsis hx of seizures rule out vascular mri brain ordered atb per primary cont namenda [facility] Hospital declaration INPATIENT level of care is warranted for this patient because patient is a 89 year old with who presents with suspicion of . I have a high level of concern because . Patient is at high risk for . Plan of care/treatment include . Patient care is expected to be greater than 2 midnights. OBSERVATION level of care is warranted for this patient. Patient is a 89 year old with who presents with . Patient will be admitted for 1 midnight, but if additional night(s) is/are necessary, patient will be converted to inpatient status for the entire hospitalization Disposition: Once the patient is stable to leave the hospital, I anticipate the patient will likely be discharged to the following environment: Estimated discharge date: I spent 70 minutes on this patient's case, and minutes was dedicated to counseling and/or care coordination. MIPS (Merit-based Incentive Payment System) Applicable CPT: 70892, 75976 CHECK ALL THAT ARE MET: Measure #5 (CHF): All ages. Prescribe ARSLAN/ARB upon discharge for patients with left ventricular systolic dysfunction. If not, the reason is clearly documented in the medical chart. Measure #8 (CHF): All ages. Prescribe a beta ariana upon discharge for patients with left ventricular systolic dysfunction. If not, the reason is clearly documented in the medical chart. Measure #47 Advance care plan or surrogate decision maker documented in the medical record. Measure #130 The provider has documented, updated, or reviewed the patients current medication list and has documented it in the patients note. Measure #374 (All): Send report to referring provider. Measure #407(Sepsis due to MSSA bacteremia): Age 18+ Patient treated with a beta-lactam antibiotic (Nafcillin, Oxacillin or Cefazolin) as definitive therapy. MEDICAL COMPLEXITY High complexity medical decision making (need 2/3 categories) Problem - need 4 points Acute/new problem with new plan for workup (4 points, 1 max) Acute/new problem without additional workup (3 points, 1 max) Unstable chronic problem actively being managed (2 point each, 2 max) Stable chronic problem actively being managed (1 point each, 2 max) Self-limited/transient process (constipation, muscle ache, etc) (1 point each , 2 max) Data - need 4 points Reviewed labs/imaging studies (1 points, 2 max) Independent review of imaging (EKG, xrays, etc) (2 points, 2 max) Discussed case with consult/other MD/RN (2 points, 2 max) High Risk - qualify if have one of the following: Severe exacerbation of acute problem, acute mental status change, IV narcotics , monitoring drug levels (vancomycin, INR, tacrolimus etc) Luis Chirinos MD Sep 09, 2018 19:46
[2018-09-09 20:00] VITALS: BP 111/64
--- NOTE | 2018-09-09 20:21 | NUR ---
NURSE NOTES: Pt repositioner q 2 hours . Continues to be nonresponsive. would like all possible measures to be done except, CPR. Refused referral for home health or rn social work referral. " I take care of him, he is my hobby" Control Officer Manager encouraged to take care of herself as well. Family remains at bedside. All anticipated needs require to be met
[2018-09-09] MEDS: levETIRAcetam 500mg/NS100ml 100 ML IVPB SCH (21:02)
[2018-09-10] VITALS: BP 109/66
[2018-09-10 04:00] VITALS: BP 124/69
--- NOTE | 2018-09-10 05:59 | History and Physical Report ---
DATE OF ADMISSION: 09/09/2018 HISTORY OF PRESENT ILLNESS: The patient is an unfortunate male who presents with a history of advanced , who has had weight loss, , unable to eat, failure to thrive, history of prostate cancer, status post radiation, has had low PSA, almost 0. Per family, he has not been eating well, so he was admitted for further evaluation. No history was obtained on this patient as the patient is altered. PAST MEDICAL HISTORY: 1. Prostate cancer. 2. alzheimer 3. History of subdural hematoma. FAMILY HISTORY: Noncontributory. SOCIAL HISTORY: He is . He has children. They are very supportive. He is a . No smoking. No alcohol use. PHYSICAL EXAMINATION: VITAL SIGNS: Stable. GENERAL: No jugular venous distention. He has bitemporal wasting, cachectic. HEART: S1 and S2. LUNGS: Clear. ABDOMEN: Soft. EXTREMITIES: No clubbing or cyanosis. IMPRESSION: 1. Advanced dementia. 2. Prostate cancer. 3. Failure to thrive. 4. Severe protein malnutrition. 5. Inability to self-care. 6. _needs G-tube feeding. 7. needs G-tube placement. 8. CT of the abdomen and pelvis to r/o malignancies. 9. PSA to be checked. 10. Urology to follow the patient. 11. G-tube to be discussed. 12. Gastrointestinal to see the patient. 13. We might want him to go on hospice as well. We need to understand what the family wants. 14. The patient is DNR. 15. Case discussed with family. Jaleel Dewitt M.D. DR: SHEA JOB#: [id number] CC: CORDELIA
--- NOTE | 2018-09-10 07:30 | NUR ---
HAND-OFF: Report given to KATEY IBRAHIM.
--- NOTE | 2018-09-10 07:44 | NUR ---
NURSE NOTES: received report from HARIHS [place]. patient in bed. alert. non verbal. disoriented. no respiratory distress noted on room air. no facial grimacing. IV on LFA 18g running D51/2NS 20kcl 40/hr. NPO for gt placement on 09/11/18. bed in the lowest position. call light within reach. on the bedside. will continue to provide plan of care
[2018-09-10 08:00] VITALS: BP 112/74
[2018-09-10] MEDS: Memantine 10mg tab ORAL SCH ×2 (08:57→17:26)
[2018-09-10] MEDS: levETIRAcetam 500mg/NS100ml 100 ML IVPB SCH ×2 (08:58→20:54)
[2018-09-10 10:06] LABS: ANION GAP 9 mmol/L (5-15); BLOOD UREA NITROGEN 17 mg/dL (7-18); CALCIUM 9.5 MG/DL (8.5-10.1); CARBON DIOXIDE 26 MMOL/L (21-32); CHLORIDE 115 MMOL/L (98-107); CREATININE 0.8 MG/DL (0.55-1.30); POTASSIUM 3.7 MMOL/L (3.5-5.1); SODIUM 150 MMOL/L (136-145)
[2018-09-10 12:00] VITALS: BP 98/64
--- NOTE | 2018-09-10 12:00 | Consultation ---
DATE OF CONSULTATION: 09/10/2018 CONSULTING PHYSICIAN: Yfn Alcocer M.D. REFERRING PHYSICIAN: Jaleel Dewitt M.D. CHIEF COMPLAINT: Admission for failure to thrive. HISTORY OF PRESENT ILLNESS: Most of the history from the family at the bedside. This is a 77-year-old patient, severe malnutrition and failure to thrive, severe dementia, was brought by the family because he was not eating. They want G-tube. PAST MEDICAL HISTORY: Severe dementia, history of intracranial bleed requiring surgery in the past, also history of hernia repair many years ago. ALLERGIES: No known drug allergies. MEDICATIONS: Please see medication reconciliation list. PAST SURGICAL HISTORY: As above. SOCIAL HISTORY: There is no recent history of tobacco, alcohol, or drug abuse. FAMILY HISTORY: Noncontributory. REVIEW OF SYSTEMS: Limited. PHYSICAL EXAMINATION: VITAL SIGNS: Temperature 98.1, blood pressure is 124/69, pulse is 87, respirations 18. HEENT: Normocephalic and atraumatic. Sclerae anicteric. NECK: Supple. No evidence of obvious lymphadenopathy. CARDIOVASCULAR: Regular rate and rhythm. Plus S1 and S2. No obvious murmur. LUNGS: Decreased breath sounds bilaterally on the supine exam. ABDOMEN: Soft, nontender. No rebound. No guarding. No peritoneal sign. EXTREMITIES: No cyanosis. No clubbing. No edema. LABORATORY DATA: White count is 9.2, hemoglobin 14, hematocrit 47, platelet count is 299. ASSESSMENT AND PLAN: This is a 77-year-old male with failure to thrive. I had a long discussion with the family at the bedside. They agreed for the patient to have a G-tube placement. Plan to make NPO after midnight tonight except for medications and order for G-tube placement for tomorrow. I want to thank, Dr. Jaleel Dewitt, for this kind referral. Yfn Alcocer M.D. DR: MELODIE JOB#: [id number] CC: Jaleel Dewitt M.D.; Fax#: [phone]
--- NOTE | 2018-09-10 13:09 | NUR ---
RD ASSESSMENT & RECOMMENDATIONS SEE CARE ACTIVITY FOR COMPLETE ASSESSMENT DAILY ESTIMATED NEEDS: Needs based on Underweight 51kg 30-35 kcals/kg 9420-5021 total kcals 1-1.5 g protein/kg 51-77 g total protein 25-30 mL/kg 7627-0916 total fluid mLs NUTRITION DIAGNOSIS: 1) Increased kcal and pro needs r/t underweight status as evidenced by pt @76% ideal body weight, moderate to severe wasting, adm w/ poor po intake. 2) Inadequate oral intake r/t FTT as evidenced by pt w/ reduced po intake, underweight per guidelines, adm w/ dehydration, now w/ pending PEG placement. (CURRENT DIET: Regular puree + Ensure TID) PO DIET RECOMMENDATIONS: Liberalized REGULAR diet/ texture per CHAPLAINCY ENTERAL NUTRITION RECOMMENDATIONS: Jevity 1.2 @55ml/hr x24 hrs to provide 1320ml, 1584 kcal, 73g pro, 1065ml free H2O - Rec to start JEVITY 1.2 @25ml for 6 hrs - Advance as tolerated 10ml q4-6 hrs to goal - Water flushes rec 100ml q6hrs - HOB Over 30 degrees ADDITIONAL RECOMMENDATIONS: 1) CHAPLAINCY eval for oral grat 2) Obtain a calibrated bed scale wt 3) Rec to continue IV hydration until TF's can be initiated. 4) Pt at HIGH RISK FOR REFEEDING REPLETE LYTES PRIOR TO TF INITIATE TF @LOW RATE, 20-25ml/hr 5) rec WC eval for photos-> Add WHITNEY BID w/ GT (F/up w/ eval) 6) WHEN S/P GT PLACEMENT-> DC ADDED ENSURE TID
--- NOTE | 2018-09-10 14:30 | Diagnostic Imaging Report ---
Indication: Dyspnea Comparison: 09/09/2018 A single view chest radiograph was obtained. Findings: Some increasing interstitial edema demonstrated compared to the last examination. Heart is stable slightly increased in size. IMPRESSION: Interstitial edema
--- NOTE | 2018-09-10 14:30 | Diagnostic Imaging Report ---
Indication: Dyspnea Comparison: 02/01/2017 A single view chest radiograph was obtained. Findings: Patchy interstitial opacities are present. Heart size is borderline enlarged. IMPRESSION: No significant change. Patchy interstitial prominence nonspecific
[2018-09-10] MEDS ORDERED: Tubing IV Secondary IV ONE (15:02)
[2018-09-10 16:00] VITALS: BP 95/63
--- NOTE | 2018-09-10 16:11 | NUR ---
NURSE NOTES: Seen and evaluated by Jaleel Rivera and new order received. Order read back and carried out.
--- NOTE | 2018-09-10 16:16 | General Progress Note ---
Assessment/Plan Status Narrative impression: failure to thrive prostate cancer alzheimer inability to take po enough weight loss pre renal azothemia hypernatremia acute renal failure dehydration weakness historyof subdural hematoma ,,,,,,,,,,,,,,,,,,,,,,,,,,,,,,,,,,,,,,,,,,,,,,,,,,,,,,,,,,,,,,,,,,,,,,,,, plan iv fluid monitoroc lsoley gi to place g ttube will discuss wihtfamily possibility of hospice as well. Subjective Date patient seen: Sep 10, 2018 Time patient seen: 16:14 Allergies: Coded Allergies: NO KNOWN DRUG ALLERGIES (Unverified Allergy, Unknown, 03/22/14) Subjective patient is non verbal more awake today Objective Last 24 Hour Vital Signs Date Time Temp Pulse Resp B/P (MAP) Pulse Ox O2 Delivery O2 Flow Rate FiO2 09/10/18 12:00 97.0 71 20 98/64 (75) 97 09/10/18 08:00 97.2 95 18 112/74 (87) 96 09/10/18 04:00 98.1 87 18 124/69 (87) 96 09/10/18 00:00 97.9 82 18 109/66 (80) 97 09/09/18 20:00 97.3 79 18 111/64 (80) 95 Intake and Output 09/09/18 09/10/18 19:00 07:00 Intake Total 1000 ml 500 ml Balance 1000 ml 500 ml Intake Oral 0 ml IV Total 1000 ml 500 ml # Voids 2 Laboratory Tests 09/10/18 09:07: Sodium Level 150H, Potassium Level 3.7, Chloride Level 115H, Carbon Dioxide Level 26, Anion Gap 9, Blood Urea Nitrogen 17, Creatinine 0.8, Estimat Glomerular Filtration Rate , Glucose Level 104, Calcium Level 9.5, Prostate Specific Antigen 0.17 Height (Feet): 5 Height (Inches): 5.00 Weight (Pounds): 101 Objective NAD cachectic temoporal wasted cta s1,s2,rrr soft Jaleel Dewitt MD Sep 10, 2018 16:16
--- NOTE | 2018-09-10 16:30 | Consultation ---
DATE OF CONSULTATION: 09/10/2018 DATE OF ADMISSION: 09/09/2018. REFERRING PHYSICIAN: Jaleel Dewitt M.D. REASON FOR CONSULTATION: Hypernatremia. HISTORY OF PRESENT ILLNESS: The patient is a 77-year-old gentleman, who lives at home with his . states that over the last several days the patient has not been eating or drinking well. He presented to the emergency room dehydrated, elevated sodium of 115. The patient was pending evaluation for possible G-tube. ALLERGIES: No known drug allergies. PAST MEDICAL HISTORY: 1. Seizure disorder. 2. Dementia. FAMILY HISTORY: Positive for hypertension. PAST SURGICAL HISTORY: Noncontributory. REVIEW OF SYSTEMS: Cannot obtain as the patient is not answering questions coherently. LABORATORY AND DIAGNOSTIC DATA: Labs dated September 10, 2018, sodium 150, potassium 3.7, calcium 9.5, creatinine 0.8, hemoglobin 14.6, white cell count 9.2, and platelet count 299,000. PHYSICAL EXAMINATION: VITAL SIGNS: Blood pressure 112/74, respiratory rate 18, pulse 95, temperature 97.2 degrees, pulse oximetry 96% on room air. GENERAL: The patient is awake, minimally conversant. HEENT: Extraocular muscle intact. No lymphadenopathy. Oropharyngeal mucosa is clear and dry. CARDIOVASCULAR: S1 and S2. No rubs or gallops. PULMONARY: Clear to auscultation bilaterally. No rales, rhonchi, or wheeze. ABDOMEN: Nondistended and nontender. EXTREMITIES: No edema. ASSESSMENT AND PLAN: 1. Hypernatremia secondary to approximately four liters of volume depletion. We will continue hydration with D5W. 2. Hypernatremia secondary to intravascular volume depletion. We will continue D5W. 3. Poor oral intake. G-tube evaluation pending. 4. Dementia. Management per primary care physician. Paolo Gutierrez MD DR: Andrea JOB#: [id number] CC: CORDELIA
--- NOTE | 2018-09-10 17:03 | Neurology Progress Note ---
Interim History Interim History Interim History more alert, non verbal NPO Objective Physical Exam Last Vital Signs Date Time Temp Pulse Resp B/P (MAP) Pulse Ox O2 Delivery O2 Flow Rate FiO2 09/10/18 16:00 97.6 77 18 95/63 (74) 97 09/09/18 15:06 Room Air Laboratory Tests Test 09/10/18 09:07 Sodium Level 150 MMOL/L (136-145) H Potassium Level 3.7 MMOL/L (3.5-5.1) Chloride Level 115 MMOL/L (98-107) H Carbon Dioxide Level 26 MMOL/L (21-32) Anion Gap 9 mmol/L (5-15) Blood Urea Nitrogen 17 mg/dL (7-18) Creatinine 0.8 MG/DL (0.55-1.30) Estimat Glomerular Filtration Rate mL/min (>60) Glucose Level 104 MG/DL (74-106) Calcium Level 9.5 MG/DL (8.5-10.1) Prostate Specific Antigen 0.17 ng/mL (0.13-4.0) Neurologic Exam Objective General appearance: alert Head: Normocephalic, without obvious abnormality, atraumatic Eyes: conjunctivae/corneas clear. PERRL Throat: Lips, mucosa, and tongue normal Neck: supple Lungs: non labored Heart: regular rate and rhythm Abdomen: soft Extremities: no cyanosis or edema Pulses: 2+ and symmetric Skin: Skin color, texture, turgor normal. Neurologic: awake, non verbal, does not follow, minimal withdraw in UEs, LEs with contractures Impression/Recommendations Problems: (1) Pneumonia (2) Sepsis (3) Altered mental status (4) Weakness (5) Dehydration Diagnostic Impression Advanced dementia, likely alzheimer Non verbal Gtube vs hospice care Luis Chirinos MD Sep 10, 2018 17:03
--- NOTE | 2018-09-10 19:21 | NUR ---
HAND-OFF: Report given to KATEY Edwards.
--- NOTE | 2018-09-10 19:37 | NUR ---
NURSE NOTES: Pt is in bed, awake. Non-verbal. Pt's by bedside. Pt appears comfortable. D5w running at 75ml/hr. HOB elevated. Sacral dressing dry and intact. Pt will be turned q2hrs. Bed locked low in position, side rails up padded. Call light within reach. Bed alarm on. Pt is on fall precaution. pt will be monitored.
[2018-09-10 20:00] VITALS: BP 111/71
--- NOTE | 2018-09-10 21:45 | Consultation ---
DATE OF CONSULTATION: 09/10/2018 CONSULTING PHYSICIAN: Haresh Burton M.D. REFERRING PHYSICIAN: Jaleel Dewitt M.D. REASON FOR CONSULTATION: Followup of low urinary tract symptoms and prostate cancer. HISTORY OF PRESENT ILLNESS: This is a pleasant 77-year-old gentleman. He is known to me from outpatient evaluations. The patient has a history of BPH and lower urinary tract symptoms. He has a history of prostate cancer for which he had external beam radiation over 5 years ago. He had been on Flomax previously which was stopped and he was subsequently started on Myrbetriq for urinary frequency. He has not had a recent follow-up with me. I did speak with the patient's and he has been voiding fairly well. He has some frequency and occasional incontinence. He came to the hospital because of generalized weakness and failure to thrive. Followup Urology evaluation requested. PAST MEDICAL HISTORY: Significant for above also history of Alzheimer's dementia. Again, prostate cancer with radiation. PAST SURGICAL HISTORY: Unknown. CURRENT MEDICATIONS: Here in the hospital, the patient is on Namenda, levetiracetam. ALLERGIES: No known drug allergies. SOCIAL HISTORY: The patient currently nonsmoker. REVIEW OF SYSTEMS: As above. FAMILY HISTORY: Noncontributory. PHYSICAL EXAMINATION: GENERAL: Elderly male, in no acute distress. VITAL SIGNS: Temperature 97.6, blood pressure 95/63, pulse 77, respirations 18. HEENT: Normocephalic. NECK: Supple. ABDOMEN: Soft. BACK: No CVA tenderness. EXTREMITIES: No clubbing, cyanosis. LABORATORY DATA: UA on admission showed 2+ protein, 1+ leukocyte esterase, 2 to 4 rbc's. White count 9.2, hemoglobin 14.6, platelets 299, BUN 17, creatinine 0.8, potassium 3.7. His urine culture is negative thus far. DIAGNOSTIC IMAGING STUDIES: The patient had a chest x-ray, which showed interstitial edema. There are no renal imaging studies. IMPRESSION: 1. BPH. 2. Lower urinary tract symptoms. 3. Neurogenic bladder. 4. Prostate cancer history, status post radiation. 5. Proteinuria. 6. Hematuria. 7. Mild pyuria. PLAN AND DISCUSSION: Again the patient does have a history of prostate cancer with radiation. According to the , he has had a recent outpatient PSA which was minimal, I believe less than 0.5. I would presume that his prostate is under good control at this time. He has had lower urinary tract symptoms and he was on a Myrbetriq. At this time, I would recommend to hold it. Continue to monitor his serum creatinine He did have mild pyuria, we will follow up on the results of the urine culture. At some point, he can have a cystoscopy to evaluate lower urinary tract. Thank you for this consultation. Haresh Burton M.D. DR: Dario JOB#: [id number] CC:
[2018-09-11] VITALS (9 sets, daily range): BP systolic 107–130; BP diastolic 64–85
--- NOTE | 2018-09-11 03:59 | NUR ---
NURSE NOTES: Pt is in bed, asleep. No acute distress noted. D5 1/2 Ns running at 75ml/hr. Pt is currently NPO for EGD and G-tube placement.Pt has been turned frequently. Pt was given a bed bath, linen changed. Pt's by bedside.
[2018-09-11 05:40] LABS: BASOPHILS % (AUTO) 0.5 % (0.0-2.0); EOSINOPHILS % (AUTO) 2.2 % (0.0-3.0); HEMATOCRIT 38.4 % (42.0-52.0); HEMOGLOBIN 12.2 G/DL (14.2-18.0); LYMPHOCYTES % (AUTO) 23.3 % (20.0-45.0); MEAN CORPUSCULAR VOLUME 93 FL (80-99); MONOCYTES % (AUTO) 10.7 % (1.0-10.0); NEUTROPHILS % (AUTO) 63.3 % (45.0-75.0); PLATELET COUNT 255 K/UL (150-450); RED BLOOD COUNT 4.12 M/UL (4.70-6.10); RED CELL DISTRIBUTION WIDTH 12.1 % (11.6-14.8); WHITE BLOOD COUNT 5.1 K/UL (4.8-10.8)
[2018-09-11 05:52] LABS: ANION GAP 7 mmol/L (5-15); BLOOD UREA NITROGEN 11 mg/dL (7-18); CALCIUM 8.9 MG/DL (8.5-10.1); CARBON DIOXIDE 27 MMOL/L (21-32); CHLORIDE 107 MMOL/L (98-107); CREATININE 0.8 MG/DL (0.55-1.30); POTASSIUM 3.2 MMOL/L (3.5-5.1); SODIUM 141 MMOL/L (136-145)
--- NOTE | 2018-09-11 07:05 | NUR ---
HAND-OFF: Report given to Jennyfer Troncoso RN.Informed hang KCL piggybag as ordered by .
--- NOTE | 2018-09-11 07:37 | Urology Progress Note ---
Assessment/Plan Assessment/Plan: 1. BPH. 2. Lower urinary tract symptoms. 3. Neurogenic bladder. 4. Prostate cancer history, status post radiation. 5. Proteinuria. 6. Hematuria. 7. Mild pyuria. monitor clinically currently off myrbetriq renal fxn stable f/u on cx's d/w pt's Subjective Allergies: Coded Allergies: NO KNOWN DRUG ALLERGIES (Unverified Allergy, Unknown, 03/22/14) Subjective all noted, for G-tube today Objective Last 24 Hour Vital Signs Date Time Temp Pulse Resp B/P (MAP) Pulse Ox O2 Delivery O2 Flow Rate FiO2 09/11/18 04:00 97.5 79 18 107/65 (79) 96 09/10/18 21:10 Room Air 09/10/18 20:00 97.2 79 18 111/71 (84) 97 09/10/18 16:00 97.6 77 18 95/63 (74) 97 09/10/18 12:00 97.0 71 20 98/64 (75) 97 09/10/18 08:00 97.2 95 18 112/74 (87) 96 Intake and Output 09/10/18 09/11/18 19:00 07:00 Intake Total 625 ml 1000 ml Balance 625 ml 1000 ml IV Total 625 ml 1000 ml Microbiology Date/Time Source Procedure Growth Status 09/09/18 12:30 Blood Blood Culture - Preliminary NO GROWTH AFTER 24 HOURS Resulted 09/09/18 13:10 Urine,Clean Catch Urine Culture - Preliminary NO GROWTH Resulted Current Medications Medications (Trade) Dose Ordered Sig/Alirio Route PRN Reason Start Time Stop Time Status Last Admin Dose Admin Barium Sulfate (Readi-Cat 2) 450 ml NOW PRN ORAL Radiology Procedure 09/09/18 21:00 09/11/18 21:00 Dextrose 1,000 ml @ 75 mls/hr [id number] IV 09/10/18 10:31 10/10/18 10:30 09/11/18 00:40 Levetiracetam 100 ml @ 400 mls/hr Q12HR IVPB 09/09/18 21:00 10/09/18 20:59 09/10/18 20:54 Memantine (Namenda) 10 mg TWICE A DAY ORAL 09/09/18 18:00 10/09/18 17:59 09/10/18 17:26 Potassium Chloride 100 ml @ 100 mls/hr Q1HR IVPB 09/11/18 08:00 09/11/18 09:59 Laboratory Tests 09/10/18 09:07: Sodium Level 150H, Potassium Level 3.7, Chloride Level 115H, Carbon Dioxide Level 26, Anion Gap 9, Blood Urea Nitrogen 17, Creatinine 0.8, Estimat Glomerular Filtration Rate , Glucose Level 104, Calcium Level 9.5, Prostate Specific Antigen 0.17 09/11/18 04:50: Sodium Level 141, Potassium Level 3.2L, Chloride Level 107, Carbon Dioxide Level 27, Anion Gap 7, Blood Urea Nitrogen 11, Creatinine 0.8, Estimat Glomerular Filtration Rate , Glucose Level 113H, Calcium Level 8.9, White Blood Count 5.1, Red Blood Count 4.12L, Hemoglobin 12.2L, Hematocrit 38.4L, Mean Corpuscular Volume 93, Mean Corpuscular Hemoglobin 29.7, Mean Corpuscular Hemoglobin Concent 31.9L, Red Cell Distribution Width 12.1, Platelet Count 255, Mean Platelet Volume 7.2, Neutrophils (%) (Auto) 63.3, Lymphocytes (%) (Auto) 23.3, Monocytes (%) (Auto) 10.7H, Eosinophils (%) (Auto) 2.2, Basophils (%) ( Auto) 0.5 Height (Feet): 5 Height (Inches): 5.00 Weight (Pounds): 101 Objective exam stable Haresh Burton MD Sep 11, 2018 07:37
[2018-09-11] MEDS ORDERED: DiphenhydrAMINE 50mg/ml Inj IVP PRN (07:45)
[2018-09-11] MEDS ORDERED: fentaNYL 100 mcg/2 mL IV PRN (07:45)
[2018-09-11] MEDS ORDERED: Atropine Sulfate 0.4mg/ml inj IVP PRN (07:45)
[2018-09-11] MEDS ORDERED: Midazolam 2mg/2ml Inj IVP PRN (07:45)
--- NOTE | 2018-09-11 07:47 | Anethesia Preoperative Eval ---
Anesthesia Pre-op PMH/ROS General Date of Evaluation: Sep 11, 2018 Time of Evaluation: 07:42 Anesthesiologist: josh ASA Score: ASA 4 Mallampati Score Class I : Soft palate, uvula, fauces, pillars visible Class II: Soft palate, uvula, fauces visible Class III: Soft palate, base of uvula visible Class IV: Only hard plate visible Mallampati Classification: Class II Surgeon: khurram Diagnosis: severe malnutrition, ftt Surgical Procedure: egd/peg Anesthesia History: none Family History: no anesthesia problems Allergies: Coded Allergies: NO KNOWN DRUG ALLERGIES (Unverified Allergy, Unknown, 03/22/14) Medications: see eMAR Patient NPO?: Yes Past Medical History Neurologic/Psychiatric: Reports: dementia, other - alzheimer's dz, ftt, ams, seizure HEENT: Reports: cataract (L), cataract (R), PALA (L) Hematology/Immune: Reports: other - sepsis Anesthesia Pre-op Phys. Exam Physician Exam Last Vital Signs Date Time Temp Pulse Resp B/P (MAP) Pulse Ox O2 Delivery O2 Flow Rate FiO2 09/11/18 04:00 97.5 79 18 107/65 (79) 96 09/10/18 21:10 Room Air Constitutional: NAD Neurologic: other - ams Cardiovascular: RRR Respiratory: CTA Gastrointestinal: S/NT/ND Airway Exam Mallampati Score: Class II MO: limited Neck: flexible TMD: 2fb ROM: limited Anesthesia Pre-op A/P Labs Hematology Test 09/11/18 04:50 White Blood Count 5.1 K/UL (4.8-10.8) Red Blood Count 4.12 M/UL (4.70-6.10) L Hemoglobin 12.2 G/DL (14.2-18.0) L Hematocrit 38.4 % (42.0-52.0) L Mean Corpuscular Volume 93 FL (80-99) Mean Corpuscular Hemoglobin 29.7 PG (27.0-31.0) Mean Corpuscular Hemoglobin Concent 31.9 G/DL (32.0-36.0) L Red Cell Distribution Width 12.1 % (11.6-14.8) Platelet Count 255 K/UL (150-450) Mean Platelet Volume 7.2 FL (6.5-10.1) Neutrophils (%) (Auto) 63.3 % (45.0-75.0) Lymphocytes (%) (Auto) 23.3 % (20.0-45.0) Monocytes (%) (Auto) 10.7 % (1.0-10.0) H Eosinophils (%) (Auto) 2.2 % (0.0-3.0) Basophils (%) (Auto) 0.5 % (0.0-2.0) Chemistry Test 09/10/18 09:07 09/11/18 04:50 Sodium Level 150 MMOL/L (136-145) H 141 MMOL/L (136-145) Potassium Level 3.7 MMOL/L (3.5-5.1) 3.2 MMOL/L (3.5-5.1) L Chloride Level 115 MMOL/L (98-107) H 107 MMOL/L (98-107) Carbon Dioxide Level 26 MMOL/L (21-32) 27 MMOL/L (21-32) Anion Gap 9 mmol/L (5-15) 7 mmol/L (5-15) Blood Urea Nitrogen 17 mg/dL (7-18) 11 mg/dL (7-18) Creatinine 0.8 MG/DL (0.55-1.30) 0.8 MG/DL (0.55-1.30) Estimat Glomerular Filtration Rate mL/min (>60) mL/min (>60) Glucose Level 104 MG/DL (74-106) 113 MG/DL (74-106) H Calcium Level 9.5 MG/DL (8.5-10.1) 8.9 MG/DL (8.5-10.1) Prostate Specific Antigen 0.17 ng/mL (0.13-4.0) Risk Assessment & Plan Assessment: asa3 Plan: mac Status Change Before Surgery: No Pre-Antibiotics Drug: cefoxitin 1 gm Given Within 1 Hr of Incision: Yes Time Given: 11:02 Vicky Toledo MD Sep 11, 2018 07:47
--- NOTE | 2018-09-11 07:54 | Nephrology Progress Note ---
Assessment/Plan Assessment/Plan: A/P 1) Dehydration- resolved 2) Hypernatremia- resolved on D5W. IVFs changed this am 3) Hypokalemia- being replaced IV 4) Malnurished- await possible GTube Subjective Date patient seen: Sep 11, 2018 Time patient seen: 07:53 ROS Limited/Unobtainable: Yes Allergies: Coded Allergies: NO KNOWN DRUG ALLERGIES (Unverified Allergy, Unknown, 03/22/14) Subjective at bedside, patient in no oevrt distress and minimally conversant Objective Last 24 Hour Vital Signs Date Time Temp Pulse Resp B/P (MAP) Pulse Ox O2 Delivery O2 Flow Rate FiO2 09/11/18 04:00 97.5 79 18 107/65 (79) 96 09/10/18 21:10 Room Air 09/10/18 20:00 97.2 79 18 111/71 (84) 97 09/10/18 16:00 97.6 77 18 95/63 (74) 97 09/10/18 12:00 97.0 71 20 98/64 (75) 97 09/10/18 08:00 97.2 95 18 112/74 (87) 96 Intake and Output 09/10/18 09/11/18 19:00 07:00 Intake Total 625 ml 1000 ml Balance 625 ml 1000 ml IV Total 625 ml 1000 ml Laboratory Tests 09/10/18 09:07: Sodium Level 150H, Potassium Level 3.7, Chloride Level 115H, Carbon Dioxide Level 26, Anion Gap 9, Blood Urea Nitrogen 17, Creatinine 0.8, Estimat Glomerular Filtration Rate , Glucose Level 104, Calcium Level 9.5, Prostate Specific Antigen 0.17 09/11/18 04:50: Sodium Level 141, Potassium Level 3.2L, Chloride Level 107, Carbon Dioxide Level 27, Anion Gap 7, Blood Urea Nitrogen 11, Creatinine 0.8, Estimat Glomerular Filtration Rate , Glucose Level 113H, Calcium Level 8.9, White Blood Count 5.1, Red Blood Count 4.12L, Hemoglobin 12.2L, Hematocrit 38.4L, Mean Corpuscular Volume 93, Mean Corpuscular Hemoglobin 29.7, Mean Corpuscular Hemoglobin Concent 31.9L, Red Cell Distribution Width 12.1, Platelet Count 255, Mean Platelet Volume 7.2, Neutrophils (%) (Auto) 63.3, Lymphocytes (%) (Auto) 23.3, Monocytes (%) (Auto) 10.7H, Eosinophils (%) (Auto) 2.2, Basophils (%) ( Auto) 0.5 Height (Feet): 5 Height (Inches): 5.00 Weight (Pounds): 101 General Appearance: no apparent distress EENT: normal ENT inspection Neck: normal alignment, supple Cardiovascular: normal rate, regular rhythm Respiratory/Chest: lungs clear, normal breath sounds Abdomen: non tender, soft Edema: no edema noted Arm (L), no edema noted Arm (R), no edema noted Leg (L), no edema noted Leg (R), no edema noted Pedal (L), no edema noted Pedal (R), no edema noted Generalized Paolo Gutierrez MD Sep 11, 2018 07:54
--- NOTE | 2018-09-11 07:56 | NUR ---
NURSE NOTES: Received report from Jerry RN. Patient is asleep during rounds, no acute distress noted. IVF running per order. GI pre-procedure checklist done by advanced analytics associate nurse. Per report, NPO maintained. Patient's at bedside and updated on plan of care. Fall and seizure precautions maintained. Side rails upx3, bed low and locked, call light in reach. Will continue to monitor.
[2018-09-11] MEDS: levETIRAcetam 500mg/NS100ml 100 ML IVPB SCH ×2 (08:57→21:25)
[2018-09-11] MEDS ORDERED: 1/2NS w/KCl 20mEq 1000ml 1,000 ML IV SCH (09:00)
[2018-09-11] MEDS: Memantine 10mg tab ORAL SCH (09:00)
--- NOTE | 2018-09-11 09:10 | NUR ---
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 DEHYDRATION VS: BP 112/72, P 102, T 97.8, RR 20, SpO2 98 Na 153, BUN 21 CXR: Patchy interstitial prominence nonspecific IS:NS x1L IV ADMITTED TO MED/SURG DCP: RETURN HOME Addendum: 09/11/18 at 1352 by Milana Braxton CM INTERQUAL MET
[2018-09-11] MEDS ORDERED: cefOXitin 1gm Inj IVPB ONE (10:30)
[2018-09-11] MEDS ORDERED: NS 500ML IVPB ONE (10:50)
--- NOTE | 2018-09-11 10:50 | NUR ---
NURSE NOTES: Patient taken off unit for GI procedure.
--- NOTE | 2018-09-11 10:54 | Pre-Procedure Note/Attestation ---
Pre-Procedure Note/Attestation Complete Prior to Procedure Planned Procedure: not applicable Procedure Narrative: EGD/PEG Indications for Procedure Pre-Operative Diagnosis: dysphagia Attestation I attest that I discussed the nature of the procedure; its benefits; risks and complications; and alternatives (and the risks and benefits of such alternatives ), prior to the procedure, with the patient (or the patient's legal public service representative). I attest that, if there was a reasonable possibility of needing a blood transfusion, the patient (or the patient's legal public service representative) was given the [facility] standardized written summary, pursuant to the Nish[place] Blood Safety Act ([place] Health and Safety Code # 1645, as amended). I attest that I re-evaluated the patient just prior to the surgery and that there has been no change in the patient's H&P, except as documented below: Yfn Alcocer MD Sep 11, 2018 10:54
--- NOTE | 2018-09-11 10:57 | Endoscopy Procedure Note ---
Endoscopy Procedure Note General Indication for Procedure: FTT Procedures Performed: EGD, PEG Operative Findings/Diagnosis: same Specimen: none Pt Tolerated Procedure Well: Yes Estimated Blood Loss: none Anesthesia Anesthesiologist: nathan caceres Anesthesia: MAC Inserted Devices Implant(s) used?: No GI Core Measures 50 yrs or older w/o bx or poly: Not Applicable 10yrs. F/U recommended: Not Applicable Yfn Alcocer MD Sep 11, 2018 10:57
[2018-09-11] MEDS ORDERED: Lidocaine 1% MPF 10mg/ml 5ml ONE (11:00)
[2018-09-11] MEDS ORDERED: Propofol 200mg/20ml IV ONE (11:00)
[2018-09-11] MEDS ORDERED: cefOXitin 1gm/D5W 55ml IVPB ONE ×2 (11:00)
--- NOTE | 2018-09-11 11:34 | NUR ---
NURSE NOTES: Received call from microbiology regarding positive gram cocci in blood culture. Called Dr. Dewitt and informed MD (see critical value notification). Also informed MD of patient's lung sounds (see shift physical). Orders received and entered. Will continue to monitor.
--- NOTE | 2018-09-11 11:49 | Neurology Progress Note ---
Interim History Interim History ROS Limited/Unobtainable: Yes Interim History more alert, minimally verbal Objective Physical Exam Last Vital Signs Date Time Temp Pulse Resp B/P (MAP) Pulse Ox O2 Delivery O2 Flow Rate FiO2 09/11/18 11:27 98.0 80 18 130/66 95 Nasal Cannula 3.0 Laboratory Tests Test 09/11/18 04:50 White Blood Count 5.1 K/UL (4.8-10.8) Red Blood Count 4.12 M/UL (4.70-6.10) L Hemoglobin 12.2 G/DL (14.2-18.0) L Hematocrit 38.4 % (42.0-52.0) L Mean Corpuscular Volume 93 FL (80-99) Mean Corpuscular Hemoglobin 29.7 PG (27.0-31.0) Mean Corpuscular Hemoglobin Concent 31.9 G/DL (32.0-36.0) L Red Cell Distribution Width 12.1 % (11.6-14.8) Platelet Count 255 K/UL (150-450) Mean Platelet Volume 7.2 FL (6.5-10.1) Neutrophils (%) (Auto) 63.3 % (45.0-75.0) Lymphocytes (%) (Auto) 23.3 % (20.0-45.0) Monocytes (%) (Auto) 10.7 % (1.0-10.0) H Eosinophils (%) (Auto) 2.2 % (0.0-3.0) Basophils (%) (Auto) 0.5 % (0.0-2.0) Sodium Level 141 MMOL/L (136-145) Potassium Level 3.2 MMOL/L (3.5-5.1) L Chloride Level 107 MMOL/L (98-107) Carbon Dioxide Level 27 MMOL/L (21-32) Anion Gap 7 mmol/L (5-15) Blood Urea Nitrogen 11 mg/dL (7-18) Creatinine 0.8 MG/DL (0.55-1.30) Estimat Glomerular Filtration Rate mL/min (>60) Glucose Level 113 MG/DL (74-106) H Calcium Level 8.9 MG/DL (8.5-10.1) Neurologic Exam Objective General appearance: alert Head: Normocephalic, without obvious abnormality, atraumatic Eyes: conjunctivae/corneas clear. PERRL Throat: Lips, mucosa, and tongue normal Neck: supple Lungs: non labored Heart: regular rate and rhythm Abdomen: soft Extremities: no cyanosis or edema Pulses: 2+ and symmetric Skin: Skin color, texture, turgor normal. Neurologic: awake, non verbal, does not follow, minimal withdraw in UEs, LEs with contractures Impression/Recommendations Problems: (1) Pneumonia (2) Sepsis (3) Altered mental status (4) Weakness (5) Dehydration Diagnostic Impression Advanced dementia, likely alzheimer Non verbal Gtube vs hospice care Luis Chirinos MD Sep 11, 2018 11:49
--- NOTE | 2018-09-11 11:54 | NUR ---
NURSE NOTES: Received telephone report from Felipa DEL TORO in recovery. Patient will be coming back to unit soon per report.
--- NOTE | 2018-09-11 13:50 | NUR ---
NURSE NOTES: Patient arrived back to unit in stable condition. No acute distress noted, no signs of pain noted, on 3L NC. G-tube sign clean, dry, intact. checked residual per protocol, 1mL of gastric residual out, gave free water flush per MD order. Patient's at bedside updated on plan of care. Will initiate feeding when formula available.
--- NOTE | 2018-09-11 14:55 | Immediate Post-Op Evaluation ---
Immediate Post-Op Evalulation Immediate Post-Op Evalulation Procedure: egd/peg Date of Evaluation: Sep 11, 2018 Time of Evaluation: 11:39 IV Fluids: 100ml 0.9ns Blood Products: none Estimated Blood Loss: neglgible Blood Pressure Systolic: 130 Blood Pressure Diastolic: 66 Pulse Rate: 80 Respiratory Rate: 18 O2 Sat by Pulse Oximetry: 95 Temperature (Fahrenheit): 98.0 Pain Score (1-10): 0 Nausea: No Vomiting: No Complications none Patient Status: awake, reacts, patent Hydration Status: adequate Drug: cefoxitin 1gm Given Within 1 Hr of Incision: Yes Time Given: 11:02 Vicky Toledo MD Sep 11, 2018 14:55
--- NOTE | 2018-09-11 14:56 | 48 Hour Post Anesthesia Eval ---
Post Anesthesia Evaluation Procedure: egd/peg Date of Evaluation: Sep 11, 2018 Time of Evaluation: 11:41 Blood Pressure Systolic: 130 0: 77 Pulse Rate: 78 Respiratory Rate: 18 Temperature (Fahrenheit): 98.0 O2 Sat by Pulse Oximetry: 95 Airway: patent Nausea: No Vomiting: No Pain Intensity: 0 Hydration Status: adequate Cardiopulmonary Status: stable Mental Status/LOC: patient returned to baseline Post-Anesthesia Complications: none Follow-up care needed: N/A Vicky Toledo MD Sep 11, 2018 14:56
--- NOTE | 2018-09-11 15:26 | NUR ---
CHARGE NURSE NOTES: MRI cant be done because pt health services manager Addendum: 09/11/18 at 1528 by KATEY CORREIA continuation: been moving. Left message to Dr Chirinos for pre-medication to make the pt stay still. Will await callback.
--- NOTE | 2018-09-11 15:45 | NUR ---
NURSE NOTES: Formula feeding initiated per MD order. Will continue to assess patient tolerance.
--- NOTE | 2018-09-11 15:57 | Diagnostic Imaging Report ---
Indication: Abdominal pain, weakness Technique: Spiral acquisitions obtained through the abdomen and pelvis. No enteric contrast utilized, per referring physician request No IV contrast utilized, per referring physician request.. Multiplanar reconstructions were generated. Total dose length product 502.2 mGycm. CTDIvol(s) 10.21 mGy. Dose reduction achieved using automated exposure control Comparison: None Findings: There is a gastrostomy tube in good position. A small amount of free intraperitoneal air is demonstrated. Lack of enteric contrast limits assessment of the GI tract. What may be a normal retrocecal appendix is demonstrated. In any case, no findings to suggest acute appendicitis are evident. Moderate retained stool is seen throughout the colon. There is rectal distention with feces, transverse diameter of the rectum 8.7 cm. No evidence of diverticulosis or diverticulitis. No small bowel distention. No free or loculated intraperitoneal fluid is demonstrated. Lack of IV contrast limits assessment of the solid organs. The liver, gallbladder, bile ducts, pancreas, spleen, adrenals, kidneys are all unremarkable. No ureteral calculi, hydronephrosis, or hydroureter. The bladder is distended. The included lung bases demonstrate considerable consolidation of the posterior right lower lobe. A cystic space seen on the highest cut may represent a bronchiectatic bronchus. Linear atelectasis or scarring is seen within the right middle lobe. The bones are unremarkable Impression: Small pneumoperitoneum. This is an expected finding, given history of gastrostomy earlier the same day Gastrostomy appears to be in satisfactory position Considerable retained colonic stool. There is evidence of rectal fecal impaction Distended bladder Fairly extensive right lower lobe consolidation, likely pneumonia. Cystic space within the consolidated right lower lobe on the highest cut may represent a area of bronchiectasis. The CT scanner at [facility] is accredited by the [employer] and the scans are performed using protocols designed to limit radiation exposure to as low as reasonably achievable to attain images of sufficient resolution adequate for diagnostic evaluation.
--- NOTE | 2018-09-11 17:03 | Consultation ---
History of Present Illness General Date patient seen: Sep 11, 2018 Time patient seen: 16:48 Chief Complaint: Generalized Weakness Present Illness HPI 77 y/o M with hx of BPH, PRostate CA s/p external beam radiation (over 5 years ago), Intracranial bleeding requiring surgery, s/p hernia repair, SEizure disorder, Alzheimer's dementia presented to ED on 09/09 with generalized weakness and FTT. Was found to be hyponatremic. He underwent PEG placement today / No report of fever Allergies: Coded Allergies: NO KNOWN DRUG ALLERGIES (Unverified Allergy, Unknown, 03/22/14) Medication History Scheduled Levetiracetam (Keppra), 500 MG ORAL TWICE A DAY, (Reported) Melatonin (Melatonin), 5 MG PO QHS, (Reported) Memantine Hcl* (Namenda*), 10 MG ORAL TWICE A DAY, (Reported) Memantine Hcl* (Namenda*), 10 MG ORAL TWICE A DAY, (Reported) Patient History Healthcare decision maker Ayesha Felipe Resuscitation status Do Not Resuscitate Advanced Directive on File No Patient History Narrative Pmhx: as above Shx: He is . He has children. They are very supportive. He is a . No smoking. No alcohol use. Fhx: non contributory Physical Exam Physical Exam Narrative GENERAL: No jugular venous distention. He has bitemporal wasting, cachectic. HEART: S1 and S2. LUNGS: Clear. ABDOMEN: Soft. EXTREMITIES: No clubbing or cyanosis. Last 24 Hour Vital Signs Date Time Temp Pulse Resp B/P (MAP) Pulse Ox O2 Delivery O2 Flow Rate FiO2 09/11/18 16:00 98.2 82 17 118/64 (82) 99 09/11/18 14:56 78 18 95 09/11/18 14:55 80 18 95 09/11/18 11:57 98.0 74 20 122/76 98 Nasal Cannula 3.0 09/11/18 11:47 75 19 120/78 98 Nasal Cannula 3.0 09/11/18 11:37 78 20 130/77 97 Nasal Cannula 3.0 09/11/18 11:32 76 19 120/85 96 Nasal Cannula 3.0 09/11/18 11:27 98.0 80 18 130/66 95 Nasal Cannula 3.0 09/11/18 09:00 Room Air 09/11/18 08:00 98.9 78 18 111/64 (80) 97 09/11/18 04:00 97.5 79 18 107/65 (79) 96 09/10/18 21:10 Room Air 09/10/18 20:00 97.2 79 18 111/71 (84) 97 Intake and Output 09/10/18 09/11/18 18:59 06:59 Intake Total 625 ml 1000 ml Balance 625 ml 1000 ml IV Total 625 ml 1000 ml Laboratory Tests Test 09/11/18 04:50 White Blood Count 5.1 K/UL (4.8-10.8) Red Blood Count 4.12 M/UL (4.70-6.10) L Hemoglobin 12.2 G/DL (14.2-18.0) L Hematocrit 38.4 % (42.0-52.0) L Mean Corpuscular Volume 93 FL (80-99) Mean Corpuscular Hemoglobin 29.7 PG (27.0-31.0) Mean Corpuscular Hemoglobin Concent 31.9 G/DL (32.0-36.0) L Red Cell Distribution Width 12.1 % (11.6-14.8) Platelet Count 255 K/UL (150-450) Mean Platelet Volume 7.2 FL (6.5-10.1) Neutrophils (%) (Auto) 63.3 % (45.0-75.0) Lymphocytes (%) (Auto) 23.3 % (20.0-45.0) Monocytes (%) (Auto) 10.7 % (1.0-10.0) H Eosinophils (%) (Auto) 2.2 % (0.0-3.0) Basophils (%) (Auto) 0.5 % (0.0-2.0) Sodium Level 141 MMOL/L (136-145) Potassium Level 3.2 MMOL/L (3.5-5.1) L Chloride Level 107 MMOL/L (98-107) Carbon Dioxide Level 27 MMOL/L (21-32) Anion Gap 7 mmol/L (5-15) Blood Urea Nitrogen 11 mg/dL (7-18) Creatinine 0.8 MG/DL (0.55-1.30) Estimat Glomerular Filtration Rate mL/min (>60) Glucose Level 113 MG/DL (74-106) H Calcium Level 8.9 MG/DL (8.5-10.1) Height (Feet): 5 Height (Inches): 5.00 Weight (Pounds): 101 Medications Current Medications Medications (Trade) Dose Ordered Sig/Alirio Route PRN Reason Start Time Stop Time Status Last Admin Dose Admin Barium Sulfate (Readi-Cat 2) 450 ml NOW PRN ORAL Radiology Procedure 09/09/18 21:00 09/11/18 21:00 Levetiracetam 100 ml @ 400 mls/hr Q12HR IVPB 09/09/18 21:00 10/09/18 20:59 09/11/18 08:57 Memantine (Namenda) 10 mg TWICE A DAY GT 09/11/18 18:00 10/09/18 17:59 Assessment/Plan Assessment/Plan: Abx: Cefoxitin x1 09/11 Assessment: Afebrile No leukocytosis -09/09 u/a neg; ucx NTD FTT -09/11 SP PEG placement Gram positive bacteremia- ?real vs contaminant -09/09 BCx 1/4 GPC clusters BPH Prostate CA s/p external beam radiation (over 5 years ago) Intracranial bleeding requiring surgery s/p hernia repair Seizure disorder Alzheimer's dementia Plan: -Start empiric IV Vancomycin pending ID and repeat Bcx -f/u cx -Monitor CBC/CMP, temperatures -Bcx x2 Thank you for this consultation. Will continue to follow along with you. Discussed with Sayra Robles M.D. Sep 11, 2018 17:03
--- NOTE | 2018-09-11 17:15 | Procedure Note ---
DATE OF PROCEDURE: 09/11/2018 SURGEON: Yfn Alcocer M.D. PROCEDURE: Upper endoscopy with PEG placement. ANESTHESIOLOGIST: Per Dr. Barboza. INSTRUMENT: Olympus adult flexible upper endoscope. INDICATION: Failure to thrive. REASON FOR PROCEDURE: The procedure, risks, benefits, and possible consequences, including hemorrhage, aspiration, perforation and infection, and alternative treatments, were explained to the patient/legal guardian by Dr. Yfn Alcocer and the patient/legal guardian understood and accepted these risks. DESCRIPTION OF PROCEDURE: After informed consent was obtained and the patient was adequately sedated, the Olympus upper endoscope was advanced from the mouth into the second portion of duodenum and retroflexion was performed in the stomach. The patient had evidence of diffuse gastritis. Then under endoscopic guidance and under sterile condition, a 20-Persian pull type of G-tube was successfully placed in the epigastric area. The distance from the tip of the tube to skin was about 2-1/2 cm in size. The patient tolerated the procedure very well without any complication. SUMMARY FINDINGS: 1. Gastritis. 2. Status post successful PEG placement. RECOMMENDATIONS: 1. Abdominal binder. 2. Elevate the head of the bed at all times. 3. G-tube flush. 4. G-tube care. 5. Start tube feeding later today. The patient received dose of antibiotics prior to this procedure. I want to thank, Dr. Jaleel Dewitt, for this kind referral. Yfn Alcocer M.D. DR: Seth JOB#: [id number] CC: Jaleel Dewitt M.D.; Fax#: [phone]
[2018-09-11] MEDS ORDERED: Vancomycin 1gm/D5W 275ml IVPB ONE ×2 (18:00)
[2018-09-11] MEDS: Memantine 10mg tab GT SCH (18:18)
--- NOTE | 2018-09-11 19:00 | NUR ---
NURSE NOTES: Patient tolerating tube feeding well. No emesis noted, residuals less than 100mL. Feeding running at prescribed rate of 55mL/hr.
--- NOTE | 2018-09-11 19:30 | NUR ---
HAND-OFF: Report given to Sam DEL TORO. Patient is in stable condition.
--- NOTE | 2018-09-11 20:00 | NUR ---
NURSE NOTES: Patient in bed asleep. 10cc GT residual noted. Flushed 150cc water. Tolerated well. Repositioned for comfort. Abdominal binder applied. IV site intact. Needs attended. Call light within reach. Bed is locked and in low position. In stable condition.
--- NOTE | 2018-09-11 21:55 | General Progress Note ---
Assessment/Plan Status Narrative rightl ower lobe pneumonia will get followup ches txray get vanco and cefepime on board id seeing kelsey willfollow himn doing better hypernatrmeia better renal fialure better dementia the same s/p g tube placement pneumoperitenium due to tube placement Subjective Date patient seen: Sep 11, 2018 Time patient seen: 21:53 Constitutional: Reports: no symptoms Allergies: Coded Allergies: NO KNOWN DRUG ALLERGIES (Unverified Allergy, Unknown, 03/22/14) Subjective patient is non verbal more awake today Objective Last 24 Hour Vital Signs Date Time Temp Pulse Resp B/P (MAP) Pulse Ox O2 Delivery O2 Flow Rate FiO2 09/11/18 16:00 98.2 82 17 118/64 (82) 99 09/11/18 14:56 78 18 95 09/11/18 14:55 80 18 95 09/11/18 11:57 98.0 74 20 122/76 98 Nasal Cannula 3.0 09/11/18 11:47 75 19 120/78 98 Nasal Cannula 3.0 09/11/18 11:37 78 20 130/77 97 Nasal Cannula 3.0 09/11/18 11:32 76 19 120/85 96 Nasal Cannula 3.0 09/11/18 11:27 98.0 80 18 130/66 95 Nasal Cannula 3.0 09/11/18 09:00 Room Air 09/11/18 08:00 98.9 78 18 111/64 (80) 97 09/11/18 04:00 97.5 79 18 107/65 (79) 96 Intake and Output 09/10/18 09/11/18 19:00 07:00 Intake Total 625 ml 1000 ml Balance 625 ml 1000 ml IV Total 625 ml 1000 ml Laboratory Tests 09/11/18 04:50: White Blood Count 5.1, Red Blood Count 4.12L, Hemoglobin 12.2L, Hematocrit 38.4L , Mean Corpuscular Volume 93, Mean Corpuscular Hemoglobin 29.7, Mean Corpuscular Hemoglobin Concent 31.9L, Red Cell Distribution Width 12.1, Platelet Count 255, Mean Platelet Volume 7.2, Neutrophils (%) (Auto) 63.3, Lymphocytes (%) (Auto) 23.3, Monocytes (%) (Auto) 10.7H, Eosinophils (%) (Auto) 2.2, Basophils (%) (Auto) 0.5, Sodium Level 141, Potassium Level 3.2L, Chloride Level 107, Carbon Dioxide Level 27, Anion Gap 7, Blood Urea Nitrogen 11, Creatinine 0.8, Estimat Glomerular Filtration Rate , Glucose Level 113H, Calcium Level 8.9 Height (Feet): 5 Height (Inches): 5.00 Weight (Pounds): 101 Neck: normal alignment Cardiovascular: normal rate, no JVD Respiratory/Chest: other - diominihsed brath sound Abdomen: soft, other - g tubre in place Objective NAD cachectic temoporal wasted cta s1,s2,rrr soft Jaleel Dewitt MD Sep 11, 2018 21:55
[2018-09-11] MEDS: Cefepime HCl 1 GM in D5W 55 ML IVPB SCH (23:29)
[2018-09-12] VITALS: BP 121/63
[2018-09-12 04:00] VITALS: BP 103/68
[2018-09-12] MEDS: Vancomycin 750mg/NS 275ml IVPB SCH ×4 (06:00→17:45)
[2018-09-12 07:13] LABS: BASOPHILS % (AUTO) 0.5 % (0.0-2.0); EOSINOPHILS % (AUTO) 0.9 % (0.0-3.0); HEMATOCRIT 40.8 % (42.0-52.0); HEMOGLOBIN 13.3 G/DL (14.2-18.0); LYMPHOCYTES % (AUTO) 20.3 % (20.0-45.0); MEAN CORPUSCULAR VOLUME 92 FL (80-99); MONOCYTES % (AUTO) 6.9 % (1.0-10.0); NEUTROPHILS % (AUTO) 71.5 % (45.0-75.0); PLATELET COUNT 258 K/UL (150-450); RED BLOOD COUNT 4.42 M/UL (4.70-6.10); RED CELL DISTRIBUTION WIDTH 11.8 % (11.6-14.8); WHITE BLOOD COUNT 5.7 K/UL (4.8-10.8)
[2018-09-12 07:33] LABS: ANION GAP 11 mmol/L (5-15); BLOOD UREA NITROGEN 14 mg/dL (7-18); CALCIUM 9.1 MG/DL (8.5-10.1); CARBON DIOXIDE 25 MMOL/L (21-32); CHLORIDE 106 MMOL/L (98-107); POTASSIUM 3.4 MMOL/L (3.5-5.1); SODIUM 142 MMOL/L (136-145)
[2018-09-12 07:47] LABS: CREATININE 0.8 MG/DL (0.55-1.30)
--- NOTE | 2018-09-12 07:49 | NUR ---
NURSE NOTES: Received report from Sam DEL TORO. Patient is awake, oriented x1, no acute distress or signs of pain noted. Feeding with Vital Af running as ordered at 55mL/hr through g-tube, patient appears to be tolerating well. IV antibiotic running per order through intact, asymptomatic LFA IV. Patient's at bedside, updated on plan of care for the day. Fall and seizure precautions maintained. Side rails upx3, bed low and locked, call light in reach. Will continue to monitor.
[2018-09-12 08:00] VITALS: BP 108/78
--- NOTE | 2018-09-12 08:32 | Neurology Progress Note ---
Interim History Interim History ROS Limited/Unobtainable: Yes Interim History more alert, awake, non verbal, tracks but doesnt follow Objective Physical Exam Last Vital Signs Date Time Temp Pulse Resp B/P (MAP) Pulse Ox O2 Delivery O2 Flow Rate FiO2 09/12/18 04:00 98.7 92 17 103/68 (80) 96 09/11/18 21:00 Room Air 09/11/18 11:57 3.0 Laboratory Tests Test 09/12/18 05:30 White Blood Count 5.7 K/UL (4.8-10.8) Red Blood Count 4.42 M/UL (4.70-6.10) L Hemoglobin 13.3 G/DL (14.2-18.0) L Hematocrit 40.8 % (42.0-52.0) L Mean Corpuscular Volume 92 FL (80-99) Mean Corpuscular Hemoglobin 30.0 PG (27.0-31.0) Mean Corpuscular Hemoglobin Concent 32.6 G/DL (32.0-36.0) Red Cell Distribution Width 11.8 % (11.6-14.8) Platelet Count 258 K/UL (150-450) Mean Platelet Volume 7.0 FL (6.5-10.1) Neutrophils (%) (Auto) 71.5 % (45.0-75.0) Lymphocytes (%) (Auto) 20.3 % (20.0-45.0) Monocytes (%) (Auto) 6.9 % (1.0-10.0) Eosinophils (%) (Auto) 0.9 % (0.0-3.0) Basophils (%) (Auto) 0.5 % (0.0-2.0) Sodium Level 142 MMOL/L (136-145) Potassium Level 3.4 MMOL/L (3.5-5.1) L Chloride Level 106 MMOL/L (98-107) Carbon Dioxide Level 25 MMOL/L (21-32) Anion Gap 11 mmol/L (5-15) Blood Urea Nitrogen 14 mg/dL (7-18) Creatinine 0.8 MG/DL (0.55-1.30) Estimat Glomerular Filtration Rate mL/min (>60) Glucose Level 115 MG/DL (74-106) H Calcium Level 9.1 MG/DL (8.5-10.1) Neurologic Exam Objective General appearance: alert Head: Normocephalic, without obvious abnormality, atraumatic Eyes: conjunctivae/corneas clear. PERRL Throat: Lips, mucosa, and tongue normal Neck: supple Lungs: non labored Heart: regular rate and rhythm Abdomen: soft Extremities: no cyanosis or edema Pulses: 2+ and symmetric Skin: Skin color, texture, turgor normal. Neurologic: awake, non verbal, does not follow, minimal withdraw in UEs, LEs with contractures Impression/Recommendations Problems: (1) Pneumonia (2) Sepsis (3) Altered mental status (4) Weakness (5) Dehydration Diagnostic Impression Advanced dementia, likely alzheimer Non verbal Gtube vs hospice care Luis Chirinos MD Sep 12, 2018 08:32
[2018-09-12] MEDS ORDERED: Sodium Chloride for KCL Premix X 1hr IV SCH (09:00)
--- NOTE | 2018-09-12 09:01 | GI Progress Note ---
Assessment/Plan Problems: (1) Severe malnutrition ICD Codes: E43 - Unspecified severe protein-calorie malnutrition SNOMED: 19757233 (2) Encounter for PEG (percutaneous endoscopic gastrostomy) ICD Codes: Z43.1 - Encounter for attention to gastrostomy SNOMED: 850473489, 499185816 (3) Weakness ICD Codes: R53.1 - Weakness SNOMED: 04791844 (4) Dehydration ICD Codes: E86.0 - Dehydration SNOMED: 86645408 (5) Pneumonia ICD Codes: J18.9 - Pneumonia, unspecified organism SNOMED: 421602135 Status: stable Status Narrative Discussed with Dr. Alcocer. Assessment/Plan SUMMARY FINDINGS: 1. Gastritis. 2. Status post successful PEG placement. RECOMMENDATIONS: 1. Abdominal binder. 2. Elevate the head of the bed at all times. 3. G-tube flush. 4. G-tube care. Start G-tube feedings PRN transfusions Reglan as needed for GI motility Follow labs The patient was seen and examined at bedside and all new and available data was reviewed in the patients chart. I agree with the above findings, impression and plan. (Patient seen earlier today. Signature stamp does not reflect patient encounter time.). - Yfn Alcocer MD Subjective Subjective Limited Objective Last 24 Hour Vital Signs Date Time Temp Pulse Resp B/P (MAP) Pulse Ox O2 Delivery O2 Flow Rate FiO2 09/12/18 08:00 98.9 99 18 108/78 (88) 97 09/12/18 04:00 98.7 92 17 103/68 (80) 96 09/12/18 00:00 98.2 84 18 121/63 (82) 96 09/11/18 21:00 Room Air 09/11/18 20:00 98.1 80 17 119/67 (84) 96 09/11/18 16:00 98.2 82 17 118/64 (82) 99 09/11/18 14:56 78 18 95 09/11/18 14:55 80 18 95 09/11/18 11:57 98.0 74 20 122/76 98 Nasal Cannula 3.0 09/11/18 11:47 75 19 120/78 98 Nasal Cannula 3.0 09/11/18 11:37 78 20 130/77 97 Nasal Cannula 3.0 09/11/18 11:32 76 19 120/85 96 Nasal Cannula 3.0 09/11/18 11:27 98.0 80 18 130/66 95 Nasal Cannula 3.0 Intake and Output 09/11/18 09/12/18 19:00 07:00 Intake Total 800 ml Output Total 800 ml Balance 800 ml -800 ml Free Water 150 ml IV Total 525 ml Tube Feeding 125 ml Output Urine Total 800 ml # Voids 3 1 # Bowel Movements 1 Laboratory Tests Test 09/12/18 05:30 White Blood Count 5.7 K/UL (4.8-10.8) Red Blood Count 4.42 M/UL (4.70-6.10) L Hemoglobin 13.3 G/DL (14.2-18.0) L Hematocrit 40.8 % (42.0-52.0) L Mean Corpuscular Volume 92 FL (80-99) Mean Corpuscular Hemoglobin 30.0 PG (27.0-31.0) Mean Corpuscular Hemoglobin Concent 32.6 G/DL (32.0-36.0) Red Cell Distribution Width 11.8 % (11.6-14.8) Platelet Count 258 K/UL (150-450) Mean Platelet Volume 7.0 FL (6.5-10.1) Neutrophils (%) (Auto) 71.5 % (45.0-75.0) Lymphocytes (%) (Auto) 20.3 % (20.0-45.0) Monocytes (%) (Auto) 6.9 % (1.0-10.0) Eosinophils (%) (Auto) 0.9 % (0.0-3.0) Basophils (%) (Auto) 0.5 % (0.0-2.0) Sodium Level 142 MMOL/L (136-145) Potassium Level 3.4 MMOL/L (3.5-5.1) L Chloride Level 106 MMOL/L (98-107) Carbon Dioxide Level 25 MMOL/L (21-32) Anion Gap 11 mmol/L (5-15) Blood Urea Nitrogen 14 mg/dL (7-18) Creatinine 0.8 MG/DL (0.55-1.30) Estimat Glomerular Filtration Rate mL/min (>60) Glucose Level 115 MG/DL (74-106) H Calcium Level 9.1 MG/DL (8.5-10.1) Height (Feet): 5 Height (Inches): 5.00 Weight (Pounds): 101 General Appearance: WD/WN, no apparent distress, alert Cardiovascular: normal rate Respiratory/Chest: normal breath sounds, no respiratory distress Abdominal Exam: normal bowel sounds, non tender, soft, GT site - Clean dry and intact Extremities: non-tender Constance Hawkins NP Sep 12, 2018 09:01
--- NOTE | 2018-09-12 09:07 | Nephrology Progress Note ---
Assessment/Plan Status: stable Assessment/Plan: A/P 1) Dehydration- resolved. Monitor now on TFs. May need free water 2) Hypernatremia- TFs started. May need free water 3) Hypokalemia- being replaced IV prn 4) Malnurished- GTube placed with TFs 5) PNA- Abx per ID Subjective Date patient seen: Sep 12, 2018 Time patient seen: 09:05 ROS Limited/Unobtainable: Yes Allergies: Coded Allergies: NO KNOWN DRUG ALLERGIES (Unverified Allergy, Unknown, 03/22/14) Subjective at bedside, patient got GTube placed Objective Last 24 Hour Vital Signs Date Time Temp Pulse Resp B/P (MAP) Pulse Ox O2 Delivery O2 Flow Rate FiO2 09/12/18 08:00 98.9 99 18 108/78 (88) 97 09/12/18 04:00 98.7 92 17 103/68 (80) 96 09/12/18 00:00 98.2 84 18 121/63 (82) 96 09/11/18 21:00 Room Air 09/11/18 20:00 98.1 80 17 119/67 (84) 96 09/11/18 16:00 98.2 82 17 118/64 (82) 99 09/11/18 14:56 78 18 95 09/11/18 14:55 80 18 95 09/11/18 11:57 98.0 74 20 122/76 98 Nasal Cannula 3.0 09/11/18 11:47 75 19 120/78 98 Nasal Cannula 3.0 09/11/18 11:37 78 20 130/77 97 Nasal Cannula 3.0 09/11/18 11:32 76 19 120/85 96 Nasal Cannula 3.0 09/11/18 11:27 98.0 80 18 130/66 95 Nasal Cannula 3.0 Intake and Output 09/11/18 09/12/18 19:00 07:00 Intake Total 800 ml Output Total 800 ml Balance 800 ml -800 ml Free Water 150 ml IV Total 525 ml Tube Feeding 125 ml Output Urine Total 800 ml # Voids 3 1 # Bowel Movements 1 Laboratory Tests 09/12/18 05:30: White Blood Count 5.7, Red Blood Count 4.42L, Hemoglobin 13.3L, Hematocrit 40.8L , Mean Corpuscular Volume 92, Mean Corpuscular Hemoglobin 30.0, Mean Corpuscular Hemoglobin Concent 32.6, Red Cell Distribution Width 11.8, Platelet Count 258, Mean Platelet Volume 7.0, Neutrophils (%) (Auto) 71.5, Lymphocytes (% ) (Auto) 20.3, Monocytes (%) (Auto) 6.9, Eosinophils (%) (Auto) 0.9, Basophils ( %) (Auto) 0.5, Sodium Level 142, Potassium Level 3.4L, Chloride Level 106, Carbon Dioxide Level 25, Anion Gap 11, Blood Urea Nitrogen 14, Creatinine 0.8, Estimat Glomerular Filtration Rate , Glucose Level 115H, Calcium Level 9.1 Height (Feet): 5 Height (Inches): 5.00 Weight (Pounds): 101 General Appearance: no apparent distress EENT: normal ENT inspection Neck: normal alignment, supple Cardiovascular: normal rate, regular rhythm Respiratory/Chest: crackles/rales, rhonchi - bilaterally Abdomen: non tender, soft Edema: no edema noted Arm (L), no edema noted Arm (R), no edema noted Leg (L), no edema noted Leg (R), no edema noted Pedal (L), no edema noted Pedal (R), no edema noted Generalized Paolo Gutierrez MD Sep 12, 2018 09:07
[2018-09-12] MEDS: Memantine 10mg tab GT SCH ×2 (09:23→17:45)
[2018-09-12] MEDS: levETIRAcetam 500mg/NS100ml 100 ML IVPB SCH ×2 (09:23→20:34)
--- NOTE | 2018-09-12 09:32 | Urology Progress Note ---
Assessment/Plan Status: stable Assessment/Plan: 1. BPH. 2. Lower urinary tract symptoms. 3. Neurogenic bladder. 4. Prostate cancer history, status post radiation. 5. Proteinuria. 6. Hematuria. 7. Mild pyuria. monitor clinically condom cath PRN currently off myrbetriq renal fxn stable f/u on blood cx d/w pt's Subjective Allergies: Coded Allergies: NO KNOWN DRUG ALLERGIES (Unverified Allergy, Unknown, 03/22/14) Subjective all noted, PEG placed yest, condom cath Objective Last 24 Hour Vital Signs Date Time Temp Pulse Resp B/P (MAP) Pulse Ox O2 Delivery O2 Flow Rate FiO2 09/12/18 08:00 98.9 99 18 108/78 (88) 97 09/12/18 04:00 98.7 92 17 103/68 (80) 96 09/12/18 00:00 98.2 84 18 121/63 (82) 96 09/11/18 21:00 Room Air 09/11/18 20:00 98.1 80 17 119/67 (84) 96 09/11/18 16:00 98.2 82 17 118/64 (82) 99 09/11/18 14:56 78 18 95 09/11/18 14:55 80 18 95 09/11/18 11:57 98.0 74 20 122/76 98 Nasal Cannula 3.0 09/11/18 11:47 75 19 120/78 98 Nasal Cannula 3.0 09/11/18 11:37 78 20 130/77 97 Nasal Cannula 3.0 09/11/18 11:32 76 19 120/85 96 Nasal Cannula 3.0 09/11/18 11:27 98.0 80 18 130/66 95 Nasal Cannula 3.0 Intake and Output 09/11/18 09/12/18 19:00 07:00 Intake Total 800 ml Output Total 800 ml Balance 800 ml -800 ml Free Water 150 ml IV Total 525 ml Tube Feeding 125 ml Output Urine Total 800 ml # Voids 3 1 # Bowel Movements 1 Microbiology Date/Time Source Procedure Growth Status 09/09/18 12:30 Blood Blood Culture - Preliminary Gram Positive Cocci Resulted 09/09/18 13:10 Urine,Clean Catch Urine Culture - Final NO GROWTH AFTER 48 HOURS Complete Current Medications Medications (Trade) Dose Ordered Sig/Alirio Route PRN Reason Start Time Stop Time Status Last Admin Dose Admin Cefepime HCl 1 gm/ Dextrose 55 ml @ 110 mls/hr Q24H IVPB 09/11/18 23:00 09/18/18 22:59 09/11/18 23:29 Levetiracetam 100 ml @ 400 mls/hr Q12HR IVPB 09/09/18 21:00 10/09/18 20:59 09/12/18 09:23 Memantine (Namenda) 10 mg TWICE A DAY GT 09/11/18 18:00 10/09/18 17:59 09/12/18 09:23 Potassium Chloride 100 ml @ 100 mls/hr NOW ONCE IVPB 09/12/18 09:00 09/12/18 09:59 Sodium Chloride 100 ml @ 100 mls/hr Q1H IV 09/12/18 09:00 09/12/18 09:59 Vancomycin HCl (Vanco rx to dose) 1 ea DAILY PRN MISC Per rx protocol 09/11/18 17:00 10/11/18 16:59 Vancomycin HCl 750 mg/Sodium Chloride 275 ml @ 183.333 mls/hr Q12H IVPB 09/12/18 06:00 09/17/18 05:59 09/12/18 06:00 Laboratory Tests 09/12/18 05:30: White Blood Count 5.7, Red Blood Count 4.42L, Hemoglobin 13.3L, Hematocrit 40.8L , Mean Corpuscular Volume 92, Mean Corpuscular Hemoglobin 30.0, Mean Corpuscular Hemoglobin Concent 32.6, Red Cell Distribution Width 11.8, Platelet Count 258, Mean Platelet Volume 7.0, Neutrophils (%) (Auto) 71.5, Lymphocytes (% ) (Auto) 20.3, Monocytes (%) (Auto) 6.9, Eosinophils (%) (Auto) 0.9, Basophils ( %) (Auto) 0.5, Sodium Level 142, Potassium Level 3.4L, Chloride Level 106, Carbon Dioxide Level 25, Anion Gap 11, Blood Urea Nitrogen 14, Creatinine 0.8, Estimat Glomerular Filtration Rate , Glucose Level 115H, Calcium Level 9.1 Height (Feet): 5 Height (Inches): 5.00 Weight (Pounds): 101 Objective exam stable, grossly yellow urine Haresh Burton MD Sep 12, 2018 09:32
[2018-09-12 11:15] VITALS: BP 94/58
--- NOTE | 2018-09-12 14:00 | NUR ---
NURSE NOTES: Patient seen by KASANDRA Castillo. New optifoam dressing and triad applied to sacrum, heels cleaned with cavilon and optifoam applied bilaterally per wound care protocol.
--- NOTE | 2018-09-12 14:13 | General Progress Note ---
Assessment/Plan Status: stable Status Narrative doing better pneumonia get puklm eval ? sepsis vs contaminted blood culture dehydration dementia failure to thrive ? cv terrace. Subjective Date patient seen: Sep 12, 2018 Time patient seen: 14:12 Allergies: Coded Allergies: NO KNOWN DRUG ALLERGIES (Unverified Allergy, Unknown, 03/22/14) Subjective patient is non verbal more awake today Objective Last 24 Hour Vital Signs Date Time Temp Pulse Resp B/P (MAP) Pulse Ox O2 Delivery O2 Flow Rate FiO2 09/12/18 11:15 98.5 77 17 94/58 (70) 95 09/12/18 09:00 Room Air 09/12/18 08:00 98.9 99 18 108/78 (88) 97 09/12/18 04:00 98.7 92 17 103/68 (80) 96 09/12/18 00:00 98.2 84 18 121/63 (82) 96 09/11/18 21:00 Room Air 09/11/18 20:00 98.1 80 17 119/67 (84) 96 09/11/18 16:00 98.2 82 17 118/64 (82) 99 09/11/18 14:56 78 18 95 09/11/18 14:55 80 18 95 Intake and Output 09/11/18 09/12/18 19:00 07:00 Intake Total 800 ml 55 ml Output Total 800 ml Balance 800 ml -745 ml Free Water 150 ml IV Total 525 ml Tube Feeding 125 ml 55 ml Output Urine Total 800 ml # Voids 3 1 # Bowel Movements 1 Laboratory Tests 09/12/18 05:30: White Blood Count 5.7, Red Blood Count 4.42L, Hemoglobin 13.3L, Hematocrit 40.8L , Mean Corpuscular Volume 92, Mean Corpuscular Hemoglobin 30.0, Mean Corpuscular Hemoglobin Concent 32.6, Red Cell Distribution Width 11.8, Platelet Count 258, Mean Platelet Volume 7.0, Neutrophils (%) (Auto) 71.5, Lymphocytes (% ) (Auto) 20.3, Monocytes (%) (Auto) 6.9, Eosinophils (%) (Auto) 0.9, Basophils ( %) (Auto) 0.5, Sodium Level 142, Potassium Level 3.4L, Chloride Level 106, Carbon Dioxide Level 25, Anion Gap 11, Blood Urea Nitrogen 14, Creatinine 0.8, Estimat Glomerular Filtration Rate , Glucose Level 115H, Calcium Level 9.1 Height (Feet): 5 Height (Inches): 5.00 Weight (Pounds): 101 Objective NAD cachectic temoporal wasted cta s1,s2,rrr soft Jaleel Dewitt MD Sep 12, 2018 14:13
--- NOTE | 2018-09-12 14:20 | NUR ---
NURSE NOTES: Notified Dr. Dewitt of patient's open DTI on sacrum as well as wound care nurse Jonathan's recommendations. MD ordered to enter wound care orders for DTI per protocol as well as consult Dr. Nicolas. All orders entered.
--- NOTE | 2018-09-12 14:35 | NUR ---
NURSE NOTES:WOUND CARE NOTES:Pt presented on admission with open DTPI sacrum .Base of wound purple with red tinged margins(L)7.5cm x (W)8cm.Centrally base of wound is open and viable. Darker skin tone without induration periwound extending into both ischial regions. Non-blanchable erythema with fluctuance R heel (L)1.5cm x (W)2cm. Serous filled blister with dark borders L heel (L)4cm x (W)4.5cm. Discussed skin findings with Spouse . Clarified wound stage of wound with spouse that wound is not a stage two but an open DTPI. Spouse verbalized she has been caring for wound in home but acknowledged Pt's skin has been declining due to poor nutritional intake. Wound care interventions discussed with spouse and informed pt would also be placed on a Support Surface mattress. Tx.Plan: Apply Triad Paste to sacrum .Cover with Optifoam drsg. Change every 3 days and prn. Apply Cavilon Skin Barrier to both heels. Cover each heel with Optifoam drsg. Change every 7 days and prn. Reposition at least every 2hours or as tolerated. Off-Load heels with Pillow. APM/GABBY mattress overlay.
--- NOTE | 2018-09-12 15:40 | Consultation ---
History of Present Illness General Date patient seen: Sep 12, 2018 Reason for Hospitalization: Generalized Weakness Present Illness HPI This is a very pleasant 77 year old male currently admitted for medical care and management. Patient with multiple medical comorbidities and dementia. Recently with worsening failure to thrive requiring tube feeds. no n/v/f/c. during admission noted to have wounds requiring care. surgery called to evaluate and assist with care. patient seen, chart reviewed, patient examined. Allergies: Coded Allergies: NO KNOWN DRUG ALLERGIES (Unverified Allergy, Unknown, 03/22/14) Medication History Scheduled Levetiracetam (Keppra), 500 MG ORAL TWICE A DAY, (Reported) Melatonin (Melatonin), 5 MG PO QHS, (Reported) Memantine Hcl* (Namenda*), 10 MG ORAL TWICE A DAY, (Reported) Memantine Hcl* (Namenda*), 10 MG ORAL TWICE A DAY, (Reported) Patient History Limited by: medical condition History Provided By: Patient, Medical Record, PMD Healthcare decision maker Ayesha Felipe Resuscitation status Do Not Resuscitate Advanced Directive on File No Past Medical/Surgical History Past Medical/Surgical History: (1) Sepsis (2) Altered mental status (3) Pneumonia (4) Dehydration (5) Weakness (6) Severe malnutrition (7) Encounter for PEG (percutaneous endoscopic gastrostomy) Review of Systems Review of Symptoms General ROS: no weight loss or fever Psychological ROS: no depression or mood changes, no memory loss Ophthalmic ROS: no visual changes or eye irritation ENT ROS: no nasal congestion, hearing loss, dizziness Allergy and Immunology ROS: no allergic symptoms or urticaria Hematological and Lymphatic ROS: no swollen glands, unusual bleeding or bruising Endocrine ROS: no polyuria, polydipsia, weight changes, temperature intolerance Respiratory ROS: no cough, shortness of breath, or wheezing Cardiovascular ROS: no chest pain or dyspnea on exertion Gastrointestinal ROS: denies abdominal pain, no bright red blood in stool. Musculoskeletal ROS: no myalgias or arthralgias Neurological ROS: no TIA or stroke symptoms Dermatological ROS: no new or changing skin lesions, rashes or pruritis Physical Exam Physical Exam General appearance: alert, cooperative, no distress, appears stated age Head: Normocephalic, without obvious abnormality, atraumatic Eyes: conjunctivae/corneas clear. PERRL, EOM's intact. Fundi benign Throat: Lips, mucosa, and tongue normal. Teeth and gums normal Neck: supple, symmetrical, trachea midline, no adenopathy, thyroid: not enlarged, symmetric, no tenderness/mass/nodules, no carotid bruit and no JVD Lungs: clear to auscultation bilaterally Heart: regular rate and rhythm, S1, S2 normal, no murmur, click, rub or gallop Abdomen: soft, non-tender. Bowel sounds normal. No masses, no organomegaly Extremities: extremities normal, atraumatic, no cyanosis or edema Pulses: 2+ and symmetric Skin: Skin color, texture, turgor normal. No rashes or lesions Neurologic: Grossly normal Last 24 Hour Vital Signs Date Time Temp Pulse Resp B/P (MAP) Pulse Ox O2 Delivery O2 Flow Rate FiO2 09/12/18 11:15 98.5 77 17 94/58 (70) 95 09/12/18 09:00 Room Air 09/12/18 08:00 98.9 99 18 108/78 (88) 97 09/12/18 04:00 98.7 92 17 103/68 (80) 96 09/12/18 00:00 98.2 84 18 121/63 (82) 96 09/11/18 21:00 Room Air 09/11/18 20:00 98.1 80 17 119/67 (84) 96 09/11/18 16:00 98.2 82 17 118/64 (82) 99 Intake and Output 09/11/18 09/12/18 18:59 06:59 Intake Total 800 ml Output Total 800 ml Balance 800 ml -800 ml Free Water 150 ml IV Total 525 ml Tube Feeding 125 ml Output Urine Total 800 ml # Voids 3 1 # Bowel Movements 1 Laboratory Tests Test 09/12/18 05:30 White Blood Count 5.7 K/UL (4.8-10.8) Red Blood Count 4.42 M/UL (4.70-6.10) L Hemoglobin 13.3 G/DL (14.2-18.0) L Hematocrit 40.8 % (42.0-52.0) L Mean Corpuscular Volume 92 FL (80-99) Mean Corpuscular Hemoglobin 30.0 PG (27.0-31.0) Mean Corpuscular Hemoglobin Concent 32.6 G/DL (32.0-36.0) Red Cell Distribution Width 11.8 % (11.6-14.8) Platelet Count 258 K/UL (150-450) Mean Platelet Volume 7.0 FL (6.5-10.1) Neutrophils (%) (Auto) 71.5 % (45.0-75.0) Lymphocytes (%) (Auto) 20.3 % (20.0-45.0) Monocytes (%) (Auto) 6.9 % (1.0-10.0) Eosinophils (%) (Auto) 0.9 % (0.0-3.0) Basophils (%) (Auto) 0.5 % (0.0-2.0) Sodium Level 142 MMOL/L (136-145) Potassium Level 3.4 MMOL/L (3.5-5.1) L Chloride Level 106 MMOL/L (98-107) Carbon Dioxide Level 25 MMOL/L (21-32) Anion Gap 11 mmol/L (5-15) Blood Urea Nitrogen 14 mg/dL (7-18) Creatinine 0.8 MG/DL (0.55-1.30) Estimat Glomerular Filtration Rate mL/min (>60) Glucose Level 115 MG/DL (74-106) H Calcium Level 9.1 MG/DL (8.5-10.1) Height (Feet): 5 Height (Inches): 5.00 Weight (Pounds): 101 Medications Current Medications Medications (Trade) Dose Ordered Sig/Alirio Route PRN Reason Start Time Stop Time Status Last Admin Dose Admin Cefepime HCl 1 gm/ Dextrose 55 ml @ 110 mls/hr Q24H IVPB 09/11/18 23:00 09/18/18 22:59 09/11/18 23:29 Levetiracetam 100 ml @ 400 mls/hr Q12HR IVPB 09/09/18 21:00 10/09/18 20:59 09/12/18 09:23 Memantine (Namenda) 10 mg TWICE A DAY GT 09/11/18 18:00 10/09/18 17:59 09/12/18 09:23 Vancomycin HCl (Vanco rx to dose) 1 ea DAILY PRN MISC Per rx protocol 09/11/18 17:00 10/11/18 16:59 Vancomycin HCl 750 mg/Sodium Chloride 275 ml @ 183.333 mls/hr Q12H IVPB 09/12/18 06:00 09/17/18 05:59 09/12/18 06:00 Assessment/Plan Problem List: (1) Sepsis ICD Codes: A41.9 - Sepsis SNOMED: 78084811 (2) Altered mental status ICD Codes: R41.82 - Altered mental status, unspecified SNOMED: 673647955 (3) Pneumonia ICD Codes: J18.9 - Pneumonia, unspecified organism SNOMED: 172022758 (4) Dehydration ICD Codes: E86.0 - Dehydration SNOMED: 54990057 (5) Weakness ICD Codes: R53.1 - Weakness SNOMED: 51465081 (6) Severe malnutrition Assessment & Plan: DAILY ESTIMATED NEEDS: Needs based on Underweight 51kg 30-35 kcals/kg 1450-9783 total kcals 1-1.5 g protein/kg 51-77 g total protein 25-30 mL/kg 9815-1911 total fluid mLs NUTRITION DIAGNOSIS: 1) Increased kcal and pro needs r/t underweight status as evidenced by pt @76% ideal body weight, moderate to severe wasting, adm w/ poor po intake. 2) Inadequate oral intake r/t FTT as evidenced by pt w/ reduced po intake, underweight per guidelines, adm w/ dehydration, now w/ pending PEG placement. (CURRENT DIET: Regular puree + Ensure TID) PO DIET RECOMMENDATIONS: Liberalized REGULAR diet/ texture per SENIOR POWER SCHEDULER ENTERAL NUTRITION RECOMMENDATIONS: Jevity 1.2 @55ml/hr x24 hrs to provide 1320ml, 1584 kcal, 73g pro, 1065ml free H2O - Rec to start JEVITY 1.2 @25ml for 6 hrs - Advance as tolerated 10ml q4-6 hrs to goal - Water flushes rec 100ml q6hrs - HOB Over 30 degrees ADDITIONAL RECOMMENDATIONS: 1) SENIOR POWER SCHEDULER eval for oral grat 2) Obtain a calibrated bed scale wt 3) Rec to continue IV hydration until TF's can be initiated. 4) Pt at HIGH RISK FOR REFEEDING REPLETE LYTES PRIOR TO TF INITIATE TF @LOW RATE, 20-25ml/hr 5) rec WC eval for photos-> Add WHITNEY BID w/ GT (F/up w/ eval) 6) WHEN S/P GT PLACEMENT-> DC ADDED ENSURE TID ICD Codes: E43 - Unspecified severe protein-calorie malnutrition SNOMED: 17677934 (7) Encounter for PEG (percutaneous endoscopic gastrostomy) ICD Codes: Z43.1 - Encounter for attention to gastrostomy SNOMED: 569262059, 133348484 (8) Decubital ulcer Assessment & Plan: Pt presented on admission with open DTPI sacrum .Base of wound purple with red tinged margins(L)7.5cm x (W)8cm.Centrally base of wound is open and viable. Darker skin tone without induration periwound extending into both ischial regions. Non-blanchable erythema with fluctuance R heel (L)1.5cm x (W)2cm. Serous filled blister with dark borders L heel (L)4cm x (W)4.5cm. Discussed skin findings with Spouse . Clarified wound stage of wound with spouse that wound is not a stage two but an open DTPI. Spouse verbalized she has been caring for wound in home but acknowledged Pt's skin has been declining due to poor nutritional intake. Wound care interventions discussed with spouse and informed pt would also be placed on a Support Surface mattress. Tx.Plan: Apply Triad Paste to sacrum .Cover with Optifoam drsg. Change every 3 days and prn. Apply Cavilon Skin Barrier to both heels. Cover each heel with Optifoam drsg. Change every 7 days and prn. Reposition at least every 2hours or as tolerated. Off-Load heels with Pillow. APM/GABBY mattress overlay. ICD Codes: L89.90 - Pressure ulcer of unspecified site, unspecified stage SNOMED: 271287203 Juice Nicolas Sep 12, 2018 15:40
[2018-09-12 15:55] VITALS: BP 131/75
--- NOTE | 2018-09-12 19:01 | Infectious Diseases Prog Note ---
Assessment/Plan Assessment/Plan Abx: Cefoxitin x1 09/11 Assessment: Afebrile No leukocytosis -09/09 u/a neg; ucx NTD FTT -09/11 SP PEG placement Gram positive bacteremia- ?real vs contaminant -09/09 BCx 1/4 GPC clusters; 09/11 Bcx p BPH Prostate CA s/p external beam radiation (over 5 years ago) Intracranial bleeding requiring surgery s/p hernia repair Seizure disorder Alzheimer's dementia Plan: -Start empiric IV Vancomycin #2 pending ID and repeat Bcx -f/u cx -Monitor CBC/CMP, temperatures -f/u repeat Bcx x2 Thank you for this consultation. Will continue to follow along with you. Discussed with RN. Subjective Allergies: Coded Allergies: NO KNOWN DRUG ALLERGIES (Unverified Allergy, Unknown, 03/22/14) Subjective afebrile no leukocytosis repeat Bcx p Objective Vital Signs Last 24 Hour Vital Signs Date Time Temp Pulse Resp B/P (MAP) Pulse Ox O2 Delivery O2 Flow Rate FiO2 09/12/18 15:55 98.0 72 18 131/75 (93) 94 09/12/18 11:15 98.5 77 17 94/58 (70) 95 09/12/18 09:00 Room Air 09/12/18 08:00 98.9 99 18 108/78 (88) 97 09/12/18 04:00 98.7 92 17 103/68 (80) 96 09/12/18 00:00 98.2 84 18 121/63 (82) 96 09/11/18 21:00 Room Air 09/11/18 20:00 98.1 80 17 119/67 (84) 96 Height (Feet): 5 Height (Inches): 5.00 Weight (Pounds): 101 Objective GENERAL: No jugular venous distention. He has bitemporal wasting, cachectic. HEART: S1 and S2. LUNGS: Clear. ABDOMEN: Soft. EXTREMITIES: No clubbing or cyanosis. Laboratory Tests Test 09/12/18 05:30 White Blood Count 5.7 K/UL (4.8-10.8) Red Blood Count 4.42 M/UL (4.70-6.10) L Hemoglobin 13.3 G/DL (14.2-18.0) L Hematocrit 40.8 % (42.0-52.0) L Mean Corpuscular Volume 92 FL (80-99) Mean Corpuscular Hemoglobin 30.0 PG (27.0-31.0) Mean Corpuscular Hemoglobin Concent 32.6 G/DL (32.0-36.0) Red Cell Distribution Width 11.8 % (11.6-14.8) Platelet Count 258 K/UL (150-450) Mean Platelet Volume 7.0 FL (6.5-10.1) Neutrophils (%) (Auto) 71.5 % (45.0-75.0) Lymphocytes (%) (Auto) 20.3 % (20.0-45.0) Monocytes (%) (Auto) 6.9 % (1.0-10.0) Eosinophils (%) (Auto) 0.9 % (0.0-3.0) Basophils (%) (Auto) 0.5 % (0.0-2.0) Sodium Level 142 MMOL/L (136-145) Potassium Level 3.4 MMOL/L (3.5-5.1) L Chloride Level 106 MMOL/L (98-107) Carbon Dioxide Level 25 MMOL/L (21-32) Anion Gap 11 mmol/L (5-15) Blood Urea Nitrogen 14 mg/dL (7-18) Creatinine 0.8 MG/DL (0.55-1.30) Estimat Glomerular Filtration Rate mL/min (>60) Glucose Level 115 MG/DL (74-106) H Calcium Level 9.1 MG/DL (8.5-10.1) Current Medications Medications (Trade) Dose Ordered Sig/Alirio Route PRN Reason Start Time Stop Time Status Last Admin Dose Admin Cefepime HCl 1 gm/ Dextrose 55 ml @ 110 mls/hr Q24H IVPB 09/11/18 23:00 09/18/18 22:59 09/11/18 23:29 Levetiracetam 100 ml @ 400 mls/hr Q12HR IVPB 09/09/18 21:00 10/09/18 20:59 09/12/18 09:23 Memantine (Namenda) 10 mg TWICE A DAY GT 09/11/18 18:00 10/09/18 17:59 09/12/18 17:45 Vancomycin HCl (Vanco rx to dose) 1 ea DAILY PRN MISC Per rx protocol 09/11/18 17:00 10/11/18 16:59 Vancomycin HCl 750 mg/Sodium Chloride 275 ml @ 183.333 mls/hr Q12H IVPB 09/12/18 06:00 09/17/18 05:59 09/12/18 17:45 Sayra Potts M.D. Sep 12, 2018 19:01
--- NOTE | 2018-09-12 19:30 | NUR ---
HAND-OFF: Report given to Ana DEL TORO. Patient is in stable condition.
--- NOTE | 2018-09-12 19:31 | NUR ---
NURSE NOTES: Received report & pt from KATEY Burger. Pt in bed, nonverbal, in room air, fmaily member at bedside. No s/s of acute distress & no s/s of pain noted. Pt on tube feeding as ordered on Vital AF 1.2 continuous @ 55ml/hr. Condom cath on & wall suction. B/L heels covered with optifoam drsg & elevated with pillow. Sacral area with optifoam drsg. IV site intact. Bed in lowest position, call light within reach. Will continue to monitor.
[2018-09-12 20:00] VITALS: BP 96/61
--- NOTE | 2018-09-12 20:00 | NUR ---
NURSE NOTES: Pressure release mattress applied
[2018-09-12] MEDS: Cefepime HCl 1 GM in D5W 55 ML IVPB SCH (23:48)
[2018-09-13] VITALS: BP 133/68
[2018-09-13 04:00] VITALS: BP 122/70
[2018-09-13 05:24] LABS: BASOPHILS % (AUTO) 0.4 % (0.0-2.0); EOSINOPHILS % (AUTO) 1.1 % (0.0-3.0); HEMATOCRIT 37.2 % (42.0-52.0); HEMOGLOBIN 11.8 G/DL (14.2-18.0); LYMPHOCYTES % (AUTO) 22.2 % (20.0-45.0); MEAN CORPUSCULAR VOLUME 92 FL (80-99); MONOCYTES % (AUTO) 7.8 % (1.0-10.0); NEUTROPHILS % (AUTO) 68.5 % (45.0-75.0); PLATELET COUNT 251 K/UL (150-450); RED BLOOD COUNT 4.05 M/UL (4.70-6.10); RED CELL DISTRIBUTION WIDTH 12.2 % (11.6-14.8); WHITE BLOOD COUNT 6.9 K/UL (4.8-10.8)
[2018-09-13 05:35] LABS: ANION GAP 7 mmol/L (5-15); BLOOD UREA NITROGEN 15 mg/dL (7-18); CALCIUM 8.7 MG/DL (8.5-10.1); CARBON DIOXIDE 27 MMOL/L (21-32); CHLORIDE 109 MMOL/L (98-107); CREATININE 0.8 MG/DL (0.55-1.30); POTASSIUM 3.7 MMOL/L (3.5-5.1); SODIUM 143 MMOL/L (136-145)
[2018-09-13] MEDS: Vancomycin 750mg/NS 275ml IVPB SCH ×2 (06:15)
--- NOTE | 2018-09-13 07:26 | NUR ---
HAND-OFF: Report given to KATEY Vivar. Rounds done. Pt in stable condition.
--- NOTE | 2018-09-13 07:30 | NUR ---
NURSE NOTES: Patient is in bed asleep. Stable. No facial grimacing or signs of distress noted. Nonverbal. Tube feeding running as ordered. will flush gt as ordered. Patient appears comfortable in bed in locked and lowest position in high fowlers position. Will turn patient q2h. is at bedside and is instructed by RN to use call light for assistance.
[2018-09-13 08:00] VITALS: BP 122/79
--- NOTE | 2018-09-13 08:45 | Nephrology Progress Note ---
Assessment/Plan Status: stable Assessment/Plan: A/P 1) Dehydration- resolved. 2) Hypernatremia- TFs started. 3) Hypokalemia- corrected 4) Malnurished- GTube with TFs 5) PNA- Abx per ID OK for DC from renal point Subjective Date patient seen: Sep 13, 2018 Time patient seen: 08:42 ROS Limited/Unobtainable: Yes Allergies: Coded Allergies: NO KNOWN DRUG ALLERGIES (Unverified Allergy, Unknown, 03/22/14) Subjective at bedside. Patient improving Objective Last 24 Hour Vital Signs Date Time Temp Pulse Resp B/P (MAP) Pulse Ox O2 Delivery O2 Flow Rate FiO2 09/13/18 04:00 98.7 91 17 122/70 (87) 97 09/13/18 00:00 98.7 96 18 133/68 (89) 93 09/12/18 21:00 Room Air 09/12/18 20:00 98.1 79 16 96/61 (73) 92 09/12/18 15:55 98.0 72 18 131/75 (93) 94 09/12/18 11:15 98.5 77 17 94/58 (70) 95 09/12/18 09:00 Room Air Intake and Output 09/12/18 09/13/18 18:59 06:59 Intake Total 1718.333 ml 905 ml Output Total 375 ml 800 ml Balance 1343.333 ml 105 ml Free Water 300 ml 300 ml IV Total 758.333 ml Tube Feeding 660 ml 605 ml Output Urine Total 375 ml 800 ml Laboratory Tests 09/13/18 04:49: White Blood Count 6.9, Red Blood Count 4.05L, Hemoglobin 11.8L, Hematocrit 37.2L , Mean Corpuscular Volume 92, Mean Corpuscular Hemoglobin 29.2, Mean Corpuscular Hemoglobin Concent 31.7L, Red Cell Distribution Width 12.2, Platelet Count 251, Mean Platelet Volume 7.8, Neutrophils (%) (Auto) 68.5, Lymphocytes (%) (Auto) 22.2, Monocytes (%) (Auto) 7.8, Eosinophils (%) (Auto) 1.1, Basophils (%) (Auto) 0.4, Sodium Level 143, Potassium Level 3.7, Chloride Level 109H, Carbon Dioxide Level 27, Anion Gap 7, Blood Urea Nitrogen 15, Creatinine 0.8, Estimat Glomerular Filtration Rate , Glucose Level 111H, Calcium Level 8.7, Vancomycin Level Trough 16.3H Height (Feet): 5 Height (Inches): 5.00 Weight (Pounds): 100 General Appearance: no apparent distress EENT: normal ENT inspection Neck: normal alignment, supple Cardiovascular: normal rate, regular rhythm Respiratory/Chest: rhonchi - bilaterally Abdomen: non tender, soft Edema: no edema noted Arm (L), no edema noted Arm (R), no edema noted Leg (L), no edema noted Leg (R), no edema noted Pedal (L), no edema noted Pedal (R), no edema noted Generalized Paolo Gutierrez MD Sep 13, 2018 08:45
--- NOTE | 2018-09-13 08:57 | NUR ---
RD ASSESSMENT & RECOMMENDATIONS SEE CARE ACTIVITY FOR COMPLETE ASSESSMENT DAILY ESTIMATED NEEDS: Needs based on Underweight 51kg 30-35 kcals/kg 6848-3556 total kcals 1.25-1.5 g protein/kg 63-77 g total protein 25-30 mL/kg 6604-1907 total fluid mLs NUTRITION DIAGNOSIS: 1) Increased kcal and pro needs r/t underweight status, wound healing as evidenced by pt @76% ideal body weight, moderate to severe wasting, admitted w/ open DTPI @ sacrum, stage 1 @ rt heel, serous filled blister @ lt heel. 2) Inadequate oral intake r/t FTT as evidenced by pt w/ reduced po intake, underweight per guidelines, adm w/ dehydration, now s/p PEG placement, on GT feeding. CURRENT TF:Vital AF 1.2 @ 55ml/hr x 24 hrs ENTERAL NUTRITION RECOMMENDATIONS: Jevity 1.2 @55ml/hr x24 hrs to provide 1320ml, 1584 kcal, 73g pro, 1065ml free H2O - Rec TF change to Jevity 1.2: Elemental formula of Vital AF is not indicated. - Initiate Jevity 1.2 @ 25ml/hr x 6 hrs, advance as tolerated 10ml q 4-6 hrs to goal - Water flushes rec 100ml q6hrs - HOB Over 30 degrees ADDITIONAL RECOMMENDATIONS: 1) ELECTRO MECHANICAL TECHNICIAN eval if ORAL GRAT is indicated 2) Obtain a calibrated bed scale wt 3) Monitor lytes daily, replete as needed -> check phos and mag, not checked since TF initiation 4) Wound healing: add Vit C 250mg QD, Nic 1pkt BID add ZnSO4 220mg QD x 10 days .
[2018-09-13] MEDS: Memantine 10mg tab GT SCH ×2 (09:05→17:29)
[2018-09-13] MEDS: levETIRAcetam 500mg/NS100ml 100 ML IVPB SCH ×2 (09:05→21:40)
--- NOTE | 2018-09-13 09:40 | Urology Progress Note ---
Assessment/Plan Status: stable Assessment/Plan: 1. BPH. 2. Lower urinary tract symptoms. 3. Neurogenic bladder. 4. Prostate cancer history, status post radiation. 5. Proteinuria. 6. Hematuria. 7. Mild pyuria. monitor clinically condom cath PRN currently off myrbetriq renal fxn stable f/u on blood cx d/w pt's Subjective Allergies: Coded Allergies: NO KNOWN DRUG ALLERGIES (Unverified Allergy, Unknown, 03/22/14) Subjective all noted, PEG placed yest, condom cath Objective Last 24 Hour Vital Signs Date Time Temp Pulse Resp B/P (MAP) Pulse Ox O2 Delivery O2 Flow Rate FiO2 09/13/18 04:00 98.7 91 17 122/70 (87) 97 09/13/18 00:00 98.7 96 18 133/68 (89) 93 09/12/18 21:00 Room Air 09/12/18 20:00 98.1 79 16 96/61 (73) 92 09/12/18 15:55 98.0 72 18 131/75 (93) 94 09/12/18 11:15 98.5 77 17 94/58 (70) 95 Intake and Output 09/12/18 09/13/18 19:00 07:00 Intake Total 1663.333 ml 905 ml Output Total 375 ml 800 ml Balance 1288.333 ml 105 ml Free Water 300 ml 300 ml IV Total 758.333 ml Tube Feeding 605 ml 605 ml Output Urine Total 375 ml 800 ml Microbiology Date/Time Source Procedure Growth Status 09/11/18 17:28 Blood Blood Culture - Preliminary NO GROWTH AFTER 24 HOURS Resulted 09/09/18 13:10 Urine,Clean Catch Urine Culture - Final NO GROWTH AFTER 48 HOURS Complete Current Medications Medications (Trade) Dose Ordered Sig/Alirio Route PRN Reason Start Time Stop Time Status Last Admin Dose Admin Cefepime HCl 1 gm/ Dextrose 55 ml @ 110 mls/hr Q24H IVPB 09/11/18 23:00 09/18/18 22:59 09/12/18 23:48 Levetiracetam 100 ml @ 400 mls/hr Q12HR IVPB 09/09/18 21:00 10/09/18 20:59 09/13/18 09:05 Memantine (Namenda) 10 mg TWICE A DAY GT 09/11/18 18:00 10/09/18 17:59 09/13/18 09:05 Vancomycin HCl (Vanco rx to dose) 1 ea DAILY PRN MISC Per rx protocol 09/11/18 17:00 10/11/18 16:59 Vancomycin HCl 750 mg/Sodium Chloride 275 ml @ 183.333 mls/hr Q12H IVPB 09/12/18 06:00 09/17/18 05:59 09/13/18 06:15 Laboratory Tests 09/13/18 04:49: White Blood Count 6.9, Red Blood Count 4.05L, Hemoglobin 11.8L, Hematocrit 37.2L , Mean Corpuscular Volume 92, Mean Corpuscular Hemoglobin 29.2, Mean Corpuscular Hemoglobin Concent 31.7L, Red Cell Distribution Width 12.2, Platelet Count 251, Mean Platelet Volume 7.8, Neutrophils (%) (Auto) 68.5, Lymphocytes (%) (Auto) 22.2, Monocytes (%) (Auto) 7.8, Eosinophils (%) (Auto) 1.1, Basophils (%) (Auto) 0.4, Sodium Level 143, Potassium Level 3.7, Chloride Level 109H, Carbon Dioxide Level 27, Anion Gap 7, Blood Urea Nitrogen 15, Creatinine 0.8, Estimat Glomerular Filtration Rate , Glucose Level 111H, Calcium Level 8.7, Vancomycin Level Trough 16.3H Height (Feet): 5 Height (Inches): 5.00 Weight (Pounds): 100 Objective exam stable, grossly yellow urine Haresh Burton MD Sep 13, 2018 09:40
--- NOTE | 2018-09-13 10:40 | GI Progress Note ---
Assessment/Plan Problems: (1) Severe malnutrition ICD Codes: E43 - Unspecified severe protein-calorie malnutrition SNOMED: 26851643 (2) Encounter for PEG (percutaneous endoscopic gastrostomy) ICD Codes: Z43.1 - Encounter for attention to gastrostomy SNOMED: 861801445, 996451830 (3) Weakness ICD Codes: R53.1 - Weakness SNOMED: 53320536 (4) Dehydration ICD Codes: E86.0 - Dehydration SNOMED: 72001983 (5) Pneumonia ICD Codes: J18.9 - Pneumonia, unspecified organism SNOMED: 915813899 Status: stable Status Narrative Discussed with Dr. Alcocer. Assessment/Plan SUMMARY FINDINGS: 1. Gastritis. 2. Status post successful PEG placement. RECOMMENDATIONS: 1. Abdominal binder. 2. Elevate the head of the bed at all times. 3. G-tube flush. 4. G-tube care. Start G-tube feedings PRN transfusions Reglan as needed for GI motility Follow labs okay for DC per GI standpoint The patient was seen and examined at bedside and all new and available data was reviewed in the patients chart. I agree with the above findings, impression and plan. (Patient seen earlier today. Signature stamp does not reflect patient encounter time.). - Yfn Alcocer MD Subjective Subjective Limited Objective Last 24 Hour Vital Signs Date Time Temp Pulse Resp B/P (MAP) Pulse Ox O2 Delivery O2 Flow Rate FiO2 09/13/18 09:00 Room Air 09/13/18 08:00 98.3 92 20 122/79 (93) 95 09/13/18 04:00 98.7 91 17 122/70 (87) 97 09/13/18 00:00 98.7 96 18 133/68 (89) 93 09/12/18 21:00 Room Air 09/12/18 20:00 98.1 79 16 96/61 (73) 92 09/12/18 15:55 98.0 72 18 131/75 (93) 94 09/12/18 11:15 98.5 77 17 94/58 (70) 95 Intake and Output 09/12/18 09/13/18 19:00 07:00 Intake Total 1663.333 ml 905 ml Output Total 375 ml 800 ml Balance 1288.333 ml 105 ml Free Water 300 ml 300 ml IV Total 758.333 ml Tube Feeding 605 ml 605 ml Output Urine Total 375 ml 800 ml Laboratory Tests Test 09/13/18 04:49 White Blood Count 6.9 K/UL (4.8-10.8) Red Blood Count 4.05 M/UL (4.70-6.10) L Hemoglobin 11.8 G/DL (14.2-18.0) L Hematocrit 37.2 % (42.0-52.0) L Mean Corpuscular Volume 92 FL (80-99) Mean Corpuscular Hemoglobin 29.2 PG (27.0-31.0) Mean Corpuscular Hemoglobin Concent 31.7 G/DL (32.0-36.0) L Red Cell Distribution Width 12.2 % (11.6-14.8) Platelet Count 251 K/UL (150-450) Mean Platelet Volume 7.8 FL (6.5-10.1) Neutrophils (%) (Auto) 68.5 % (45.0-75.0) Lymphocytes (%) (Auto) 22.2 % (20.0-45.0) Monocytes (%) (Auto) 7.8 % (1.0-10.0) Eosinophils (%) (Auto) 1.1 % (0.0-3.0) Basophils (%) (Auto) 0.4 % (0.0-2.0) Sodium Level 143 MMOL/L (136-145) Potassium Level 3.7 MMOL/L (3.5-5.1) Chloride Level 109 MMOL/L (98-107) H Carbon Dioxide Level 27 MMOL/L (21-32) Anion Gap 7 mmol/L (5-15) Blood Urea Nitrogen 15 mg/dL (7-18) Creatinine 0.8 MG/DL (0.55-1.30) Estimat Glomerular Filtration Rate mL/min (>60) Glucose Level 111 MG/DL (74-106) H Calcium Level 8.7 MG/DL (8.5-10.1) Vancomycin Level Trough 16.3 ug/mL (5.0-12.0) H Height (Feet): 5 Height (Inches): 5.00 Weight (Pounds): 100 Constance Hawkins NP Sep 13, 2018 10:40
[2018-09-13 12:00] VITALS: BP 115/75
--- NOTE | 2018-09-13 13:14 | Infectious Diseases Prog Note ---
Assessment/Plan Assessment/Plan Abx: Cefoxitin x1 09/11 Assessment: Afebrile No leukocytosis -09/09 u/a neg; ucx neg -CXR: Interstitial edema FTT -09/11 SP PEG placement Gram positive bacteremia- contaminant -09/09 BCx 1/4 GS. capitis; 09/11 Bcx NTD BPH Prostate CA s/p external beam radiation (over 5 years ago) Intracranial bleeding requiring surgery s/p hernia repair Seizure disorder Alzheimer's dementia Plan: -D/c empiric IV Vancomycin #3 -D/c Cefepime #3 -f/u cx -Monitor CBC/CMP, temperatures -f/u repeat Bcx x2 Thank you for this consultation. Will continue to follow along with you. Discussed with RN. Subjective Allergies: Coded Allergies: NO KNOWN DRUG ALLERGIES (Unverified Allergy, Unknown, 03/22/14) Subjective afebrile no leukocytosis repeat Bcx NTD Objective Vital Signs Last 24 Hour Vital Signs Date Time Temp Pulse Resp B/P (MAP) Pulse Ox O2 Delivery O2 Flow Rate FiO2 09/13/18 12:00 98.1 97 18 115/75 (88) 93 09/13/18 09:00 Room Air 09/13/18 08:00 98.3 92 20 122/79 (93) 95 09/13/18 04:00 98.7 91 17 122/70 (87) 97 09/13/18 00:00 98.7 96 18 133/68 (89) 93 09/12/18 21:00 Room Air 09/12/18 20:00 98.1 79 16 96/61 (73) 92 09/12/18 15:55 98.0 72 18 131/75 (93) 94 Height (Feet): 5 Height (Inches): 5.00 Weight (Pounds): 100 Objective GENERAL: No jugular venous distention. He has bitemporal wasting, cachectic. HEART: S1 and S2. LUNGS: Clear. ABDOMEN: Soft. EXTREMITIES: No clubbing or cyanosis. Microbiology Date/Time Source Procedure Growth Status 09/11/18 17:28 Blood Blood Culture - Preliminary NO GROWTH AFTER 24 HOURS Resulted 09/11/18 17:20 Blood Blood Culture - Preliminary NO GROWTH AFTER 24 HOURS Resulted Laboratory Tests Test 09/13/18 04:49 White Blood Count 6.9 K/UL (4.8-10.8) Red Blood Count 4.05 M/UL (4.70-6.10) L Hemoglobin 11.8 G/DL (14.2-18.0) L Hematocrit 37.2 % (42.0-52.0) L Mean Corpuscular Volume 92 FL (80-99) Mean Corpuscular Hemoglobin 29.2 PG (27.0-31.0) Mean Corpuscular Hemoglobin Concent 31.7 G/DL (32.0-36.0) L Red Cell Distribution Width 12.2 % (11.6-14.8) Platelet Count 251 K/UL (150-450) Mean Platelet Volume 7.8 FL (6.5-10.1) Neutrophils (%) (Auto) 68.5 % (45.0-75.0) Lymphocytes (%) (Auto) 22.2 % (20.0-45.0) Monocytes (%) (Auto) 7.8 % (1.0-10.0) Eosinophils (%) (Auto) 1.1 % (0.0-3.0) Basophils (%) (Auto) 0.4 % (0.0-2.0) Sodium Level 143 MMOL/L (136-145) Potassium Level 3.7 MMOL/L (3.5-5.1) Chloride Level 109 MMOL/L (98-107) H Carbon Dioxide Level 27 MMOL/L (21-32) Anion Gap 7 mmol/L (5-15) Blood Urea Nitrogen 15 mg/dL (7-18) Creatinine 0.8 MG/DL (0.55-1.30) Estimat Glomerular Filtration Rate mL/min (>60) Glucose Level 111 MG/DL (74-106) H Calcium Level 8.7 MG/DL (8.5-10.1) Vancomycin Level Trough 16.3 ug/mL (5.0-12.0) H Current Medications Medications (Trade) Dose Ordered Sig/Alirio Route PRN Reason Start Time Stop Time Status Last Admin Dose Admin Cefepime HCl 1 gm/ Dextrose 55 ml @ 110 mls/hr Q24H IVPB 09/11/18 23:00 09/18/18 22:59 09/12/18 23:48 Levetiracetam 100 ml @ 400 mls/hr Q12HR IVPB 09/09/18 21:00 10/09/18 20:59 09/13/18 09:05 Memantine (Namenda) 10 mg TWICE A DAY GT 09/11/18 18:00 10/09/18 17:59 09/13/18 09:05 Vancomycin HCl (Vanco rx to dose) 1 ea DAILY PRN MISC Per rx protocol 09/11/18 17:00 10/11/18 16:59 Vancomycin HCl 750 mg/Sodium Chloride 275 ml @ 183.333 mls/hr Q12H IVPB 09/12/18 06:00 09/17/18 05:59 09/13/18 06:15 Sayra Potts M.D. Sep 13, 2018 13:14
--- NOTE | 2018-09-13 14:32 | Consultation ---
History of Present Illness General Date patient seen: Sep 13, 2018 Time patient seen: 14:27 Chief Complaint: Generalized Weakness Referring physician: Jaleel Dewitt Reason for Consultation: RLL pneumonia Present Illness HPI 77 y/o male w/ alzheimer's dementia brought in for failure to thrive and poor PO intake. Noted to be dehydrated. PEG placed. Noted with cough but no leukocytosis or fevers. Was given abx for possible pneumonia but stopped after 3 days. Overall better per patient's bedside since PEG placement and cough has improved as well. CT abdomen/pelvis lung cuts show a R basilar infiltrate concerning for possible aspiration. Allergies: Coded Allergies: NO KNOWN DRUG ALLERGIES (Unverified Allergy, Unknown, 03/22/14) Medication History Scheduled Levetiracetam (Keppra), 500 MG ORAL TWICE A DAY, (Reported) Melatonin (Melatonin), 5 MG PO QHS, (Reported) Memantine Hcl* (Namenda*), 10 MG ORAL TWICE A DAY, (Reported) Memantine Hcl* (Namenda*), 10 MG ORAL TWICE A DAY, (Reported) Patient History Limited by: medical condition History Provided By: Family Member, Significant Other Healthcare decision maker Ayesha Felipe Resuscitation status Do Not Resuscitate Advanced Directive on File No Review of Systems ROS Narrative Unable to obtain due to patient factors Physical Exam General Appearance: no apparent distress, alert, confused, thin Lines, tubes and drains: gtube HEENT: normocephalic, atraumatic, anicteric, mucous membranes moist Neck: non-tender Respiratory/Chest: other - Diminished R base Cardiovascular/Chest: normal peripheral pulses, normal rate, regular rhythm Abdomen: non tender, soft Extremities: no edema Skin Exam: normal pigmentation Last 24 Hour Vital Signs Date Time Temp Pulse Resp B/P (MAP) Pulse Ox O2 Delivery O2 Flow Rate FiO2 09/13/18 12:00 98.1 97 18 115/75 (88) 93 09/13/18 09:00 Room Air 09/13/18 08:00 98.3 92 20 122/79 (93) 95 09/13/18 04:00 98.7 91 17 122/70 (87) 97 09/13/18 00:00 98.7 96 18 133/68 (89) 93 09/12/18 21:00 Room Air 09/12/18 20:00 98.1 79 16 96/61 (73) 92 09/12/18 15:55 98.0 72 18 131/75 (93) 94 Intake and Output 09/12/18 09/13/18 19:00 07:00 Intake Total 1663.333 ml 905 ml Output Total 375 ml 800 ml Balance 1288.333 ml 105 ml Free Water 300 ml 300 ml IV Total 758.333 ml Tube Feeding 605 ml 605 ml Output Urine Total 375 ml 800 ml Laboratory Tests Test 09/13/18 04:49 White Blood Count 6.9 K/UL (4.8-10.8) Red Blood Count 4.05 M/UL (4.70-6.10) L Hemoglobin 11.8 G/DL (14.2-18.0) L Hematocrit 37.2 % (42.0-52.0) L Mean Corpuscular Volume 92 FL (80-99) Mean Corpuscular Hemoglobin 29.2 PG (27.0-31.0) Mean Corpuscular Hemoglobin Concent 31.7 G/DL (32.0-36.0) L Red Cell Distribution Width 12.2 % (11.6-14.8) Platelet Count 251 K/UL (150-450) Mean Platelet Volume 7.8 FL (6.5-10.1) Neutrophils (%) (Auto) 68.5 % (45.0-75.0) Lymphocytes (%) (Auto) 22.2 % (20.0-45.0) Monocytes (%) (Auto) 7.8 % (1.0-10.0) Eosinophils (%) (Auto) 1.1 % (0.0-3.0) Basophils (%) (Auto) 0.4 % (0.0-2.0) Sodium Level 143 MMOL/L (136-145) Potassium Level 3.7 MMOL/L (3.5-5.1) Chloride Level 109 MMOL/L (98-107) H Carbon Dioxide Level 27 MMOL/L (21-32) Anion Gap 7 mmol/L (5-15) Blood Urea Nitrogen 15 mg/dL (7-18) Creatinine 0.8 MG/DL (0.55-1.30) Estimat Glomerular Filtration Rate mL/min (>60) Glucose Level 111 MG/DL (74-106) H Calcium Level 8.7 MG/DL (8.5-10.1) Vancomycin Level Trough 16.3 ug/mL (5.0-12.0) H Height (Feet): 5 Height (Inches): 5.00 Weight (Pounds): 100 Medications Current Medications Medications (Trade) Dose Ordered Sig/Alirio Route PRN Reason Start Time Stop Time Status Last Admin Dose Admin Levetiracetam 100 ml @ 400 mls/hr Q12HR IVPB 09/09/18 21:00 10/09/18 20:59 09/13/18 09:05 Memantine (Namenda) 10 mg TWICE A DAY GT 09/11/18 18:00 10/09/18 17:59 09/13/18 09:05 Assessment/Plan Assessment/Plan: Problem List: 1. Failure to thrive 2. Dehydration 3. RLL pneumonia, likely aspiration 4. Dysphagia s/p PEG 5. Hx prostate cancer 6. PEG 7. Dementia Plan: -abx d/c after 3 days by ID -f/u cultures -repeat CXR tomorrow, may consider placing on augmentin to complete a full course of abx if infiltrate remains or any signs of worsening infection -cont tube feeds and free water Antony Grider MD Sep 13, 2018 14:32
--- NOTE | 2018-09-13 15:43 | Neurology Progress Note ---
Interim History Interim History ROS Limited/Unobtainable: Yes Interim History remains weak and non verbal Objective Physical Exam Last Vital Signs Date Time Temp Pulse Resp B/P (MAP) Pulse Ox O2 Delivery O2 Flow Rate FiO2 09/13/18 12:00 98.1 97 18 115/75 (88) 93 09/13/18 09:00 Room Air 09/11/18 11:57 3.0 Laboratory Tests Test 09/13/18 04:49 White Blood Count 6.9 K/UL (4.8-10.8) Red Blood Count 4.05 M/UL (4.70-6.10) L Hemoglobin 11.8 G/DL (14.2-18.0) L Hematocrit 37.2 % (42.0-52.0) L Mean Corpuscular Volume 92 FL (80-99) Mean Corpuscular Hemoglobin 29.2 PG (27.0-31.0) Mean Corpuscular Hemoglobin Concent 31.7 G/DL (32.0-36.0) L Red Cell Distribution Width 12.2 % (11.6-14.8) Platelet Count 251 K/UL (150-450) Mean Platelet Volume 7.8 FL (6.5-10.1) Neutrophils (%) (Auto) 68.5 % (45.0-75.0) Lymphocytes (%) (Auto) 22.2 % (20.0-45.0) Monocytes (%) (Auto) 7.8 % (1.0-10.0) Eosinophils (%) (Auto) 1.1 % (0.0-3.0) Basophils (%) (Auto) 0.4 % (0.0-2.0) Sodium Level 143 MMOL/L (136-145) Potassium Level 3.7 MMOL/L (3.5-5.1) Chloride Level 109 MMOL/L (98-107) H Carbon Dioxide Level 27 MMOL/L (21-32) Anion Gap 7 mmol/L (5-15) Blood Urea Nitrogen 15 mg/dL (7-18) Creatinine 0.8 MG/DL (0.55-1.30) Estimat Glomerular Filtration Rate mL/min (>60) Glucose Level 111 MG/DL (74-106) H Calcium Level 8.7 MG/DL (8.5-10.1) Vancomycin Level Trough 16.3 ug/mL (5.0-12.0) H Neurologic Exam Objective General appearance: alert Head: Normocephalic, without obvious abnormality, atraumatic Eyes: conjunctivae/corneas clear. PERRL Throat: Lips, mucosa, and tongue normal Neck: supple Lungs: non labored Heart: regular rate and rhythm Abdomen: soft Extremities: no cyanosis or edema Pulses: 2+ and symmetric Skin: Skin color, texture, turgor normal. Neurologic: awake, non verbal, does not follow, minimal withdraw in UEs, LEs with contractures Impression/Recommendations Problems: (1) Pneumonia (2) Sepsis (3) Altered mental status (4) Weakness (5) Dehydration Status: stable Diagnostic Impression Advanced dementia, likely alzheimer Non verbal Gtube vs hospice care Luis Chirinos MD Sep 13, 2018 15:43
[2018-09-13 16:00] VITALS: BP 135/82
--- NOTE | 2018-09-13 16:06 | Surgery Progress Note ---
Surgery Progress Note Subjective Additional Comments no acute events. stable comfortable Objective Last 24 Hour Vital Signs Date Time Temp Pulse Resp B/P (MAP) Pulse Ox O2 Delivery O2 Flow Rate FiO2 09/13/18 12:00 98.1 97 18 115/75 (88) 93 09/13/18 09:00 Room Air 09/13/18 08:00 98.3 92 20 122/79 (93) 95 09/13/18 04:00 98.7 91 17 122/70 (87) 97 09/13/18 00:00 98.7 96 18 133/68 (89) 93 09/12/18 21:00 Room Air 09/12/18 20:00 98.1 79 16 96/61 (73) 92 I&O Intake and Output 09/12/18 09/13/18 19:00 07:00 Intake Total 1663.333 ml 905 ml Output Total 375 ml 800 ml Balance 1288.333 ml 105 ml Free Water 300 ml 300 ml IV Total 758.333 ml Tube Feeding 605 ml 605 ml Output Urine Total 375 ml 800 ml Drains: none Cardiovascular: RSR Respiratory: clear Abdomen: soft, non-tender, present bowel sounds, non-distended Extremities: no edema, no tenderness, no cyanosis Laboratory Tests Test 09/13/18 04:49 White Blood Count 6.9 K/UL (4.8-10.8) Red Blood Count 4.05 M/UL (4.70-6.10) L Hemoglobin 11.8 G/DL (14.2-18.0) L Hematocrit 37.2 % (42.0-52.0) L Mean Corpuscular Volume 92 FL (80-99) Mean Corpuscular Hemoglobin 29.2 PG (27.0-31.0) Mean Corpuscular Hemoglobin Concent 31.7 G/DL (32.0-36.0) L Red Cell Distribution Width 12.2 % (11.6-14.8) Platelet Count 251 K/UL (150-450) Mean Platelet Volume 7.8 FL (6.5-10.1) Neutrophils (%) (Auto) 68.5 % (45.0-75.0) Lymphocytes (%) (Auto) 22.2 % (20.0-45.0) Monocytes (%) (Auto) 7.8 % (1.0-10.0) Eosinophils (%) (Auto) 1.1 % (0.0-3.0) Basophils (%) (Auto) 0.4 % (0.0-2.0) Sodium Level 143 MMOL/L (136-145) Potassium Level 3.7 MMOL/L (3.5-5.1) Chloride Level 109 MMOL/L (98-107) H Carbon Dioxide Level 27 MMOL/L (21-32) Anion Gap 7 mmol/L (5-15) Blood Urea Nitrogen 15 mg/dL (7-18) Creatinine 0.8 MG/DL (0.55-1.30) Estimat Glomerular Filtration Rate mL/min (>60) Glucose Level 111 MG/DL (74-106) H Calcium Level 8.7 MG/DL (8.5-10.1) Vancomycin Level Trough 16.3 ug/mL (5.0-12.0) H Plan Problems: (1) Sepsis (2) Altered mental status (3) Pneumonia (4) Dehydration (5) Weakness (6) Severe malnutrition Assessment & Plan: DAILY ESTIMATED NEEDS: Needs based on Underweight 51kg 30-35 kcals/kg 8065-0042 total kcals 1-1.5 g protein/kg 51-77 g total protein 25-30 mL/kg 7835-0031 total fluid mLs NUTRITION DIAGNOSIS: 1) Increased kcal and pro needs r/t underweight status as evidenced by pt @76% ideal body weight, moderate to severe wasting, adm w/ poor po intake. 2) Inadequate oral intake r/t FTT as evidenced by pt w/ reduced po intake, underweight per guidelines, adm w/ dehydration, now w/ pending PEG placement. (CURRENT DIET: Regular puree + Ensure TID) PO DIET RECOMMENDATIONS: Liberalized REGULAR diet/ texture per MANAGER TALENT ACQUISITION ENTERAL NUTRITION RECOMMENDATIONS: Jevity 1.2 @55ml/hr x24 hrs to provide 1320ml, 1584 kcal, 73g pro, 1065ml free H2O - Rec to start JEVITY 1.2 @25ml for 6 hrs - Advance as tolerated 10ml q4-6 hrs to goal - Water flushes rec 100ml q6hrs - HOB Over 30 degrees ADDITIONAL RECOMMENDATIONS: 1) MANAGER TALENT ACQUISITION eval for oral grat 2) Obtain a calibrated bed scale wt 3) Rec to continue IV hydration until TF's can be initiated. 4) Pt at HIGH RISK FOR REFEEDING REPLETE LYTES PRIOR TO TF INITIATE TF @LOW RATE, 20-25ml/hr 5) rec WC eval for photos-> Add WHITNEY BID w/ GT (F/up w/ eval) 6) WHEN S/P GT PLACEMENT-> DC ADDED ENSURE TID (7) Encounter for PEG (percutaneous endoscopic gastrostomy) (8) Decubital ulcer Assessment & Plan: Pt presented on admission with open DTPI sacrum .Base of wound purple with red tinged margins(L)7.5cm x (W)8cm.Centrally base of wound is open and viable. Darker skin tone without induration periwound extending into both ischial regions. Non-blanchable erythema with fluctuance R heel (L)1.5cm x (W)2cm. Serous filled blister with dark borders L heel (L)4cm x (W)4.5cm. Discussed skin findings with Spouse . Clarified wound stage of wound with spouse that wound is not a stage two but an open DTPI. Spouse verbalized she has been caring for wound in home but acknowledged Pt's skin has been declining due to poor nutritional intake. Wound care interventions discussed with spouse and informed pt would also be placed on a Support Surface mattress. Tx.Plan: Apply Triad Paste to sacrum .Cover with Optifoam drsg. Change every 3 days and prn. Apply Cavilon Skin Barrier to both heels. Cover each heel with Optifoam drsg. Change every 7 days and prn. Reposition at least every 2hours or as tolerated. Off-Load heels with Pillow. APM/GABBY mattress overlay. Juice Nicolas Sep 13, 2018 16:06
--- NOTE | 2018-09-13 19:33 | NUR ---
HAND-OFF: Report given to Ana DEL TORO. Patient is stable.
--- NOTE | 2018-09-13 19:34 | NUR ---
NURSE NOTES: Received report & pt from KATEY Vivar. Pt in bed, nonverbal, in room air, family member at bedside. No s/s of acute distress & no s/s of pain noted. Pt on tube feeding as ordered. Condom cath on & connected to wall suction. IV site intact. Bed in lowest position, call light within reach. Will continue to monitor.
[2018-09-13 20:00] VITALS: BP 123/79
--- NOTE | 2018-09-13 22:59 | General Progress Note ---
Assessment/Plan Status: stable Status Narrative rrll pneumonia aspiration? dysphagia alzeheimer prostate cancer failure to thrive arf Assessment/Plan: better plan to dc to [facility]. Subjective Date patient seen: Sep 13, 2018 Time patient seen: 22:58 Allergies: Coded Allergies: NO KNOWN DRUG ALLERGIES (Unverified Allergy, Unknown, 03/22/14) Subjective doing better sleepy Objective Last 24 Hour Vital Signs Date Time Temp Pulse Resp B/P (MAP) Pulse Ox O2 Delivery O2 Flow Rate FiO2 09/13/18 21:00 Room Air 09/13/18 20:00 98.6 90 17 123/79 (94) 95 09/13/18 16:00 97.9 95 16 135/82 (99) 91 09/13/18 12:00 98.1 97 18 115/75 (88) 93 09/13/18 09:00 Room Air 09/13/18 08:00 98.3 92 20 122/79 (93) 95 09/13/18 04:00 98.7 91 17 122/70 (87) 97 09/13/18 00:00 98.7 96 18 133/68 (89) 93 Intake and Output 09/12/18 09/13/18 18:59 06:59 Intake Total 1718.333 ml 905 ml Output Total 375 ml 800 ml Balance 1343.333 ml 105 ml Free Water 300 ml 300 ml IV Total 758.333 ml Tube Feeding 660 ml 605 ml Output Urine Total 375 ml 800 ml Laboratory Tests 09/13/18 04:49: White Blood Count 6.9, Red Blood Count 4.05L, Hemoglobin 11.8L, Hematocrit 37.2L , Mean Corpuscular Volume 92, Mean Corpuscular Hemoglobin 29.2, Mean Corpuscular Hemoglobin Concent 31.7L, Red Cell Distribution Width 12.2, Platelet Count 251, Mean Platelet Volume 7.8, Neutrophils (%) (Auto) 68.5, Lymphocytes (%) (Auto) 22.2, Monocytes (%) (Auto) 7.8, Eosinophils (%) (Auto) 1.1, Basophils (%) (Auto) 0.4, Sodium Level 143, Potassium Level 3.7, Chloride Level 109H, Carbon Dioxide Level 27, Anion Gap 7, Blood Urea Nitrogen 15, Creatinine 0.8, Estimat Glomerular Filtration Rate , Glucose Level 111H, Calcium Level 8.7, Vancomycin Level Trough 16.3H Height (Feet): 5 Height (Inches): 5.00 Weight (Pounds): 100 EENT: normal ENT inspection Objective tem,poral wasted no jvd cta s1,s2,rrr soft Jaleel Dewitt MD Sep 13, 2018 22:59
[2018-09-14] VITALS: BP 90/57
[2018-09-14 04:00] VITALS: BP 107/65
--- NOTE | 2018-09-14 07:23 | NUR ---
HAND-OFF: Report given to KATEY Saini. Rounds done. Pt in stable condition.
--- NOTE | 2018-09-14 07:30 | NUR ---
NURSE NOTES: Received pt from KATEY LOVE. Pt is confused and nonverbal. pt is in RA, No SOB or acute respiratory distress noted. pt has intact iv access RH 20G SL. Pt has g tube in place is running well. no residual noted. pt's is bed side. pt has plan to D/C. All needs attended, bed is locked and is in the lowest position. call light within easy reach. will continue to monitor.
[2018-09-14 08:00] VITALS: BP 126/74
--- NOTE | 2018-09-14 08:06 | Nephrology Progress Note ---
Assessment/Plan Status: stable Assessment/Plan: A/P 1) Dehydration- resolved. 2) Hypernatremia- TFs 3) Hypokalemia- corrected at goal 4) Malnurished- GTube with TFs 5) PNA- Abx per ID OK for DC from renal point Subjective Date patient seen: Sep 14, 2018 Time patient seen: 08:05 ROS Limited/Unobtainable: No Allergies: Coded Allergies: NO KNOWN DRUG ALLERGIES (Unverified Allergy, Unknown, 03/22/14) Subjective at bedside. Patient much improved Objective Last 24 Hour Vital Signs Date Time Temp Pulse Resp B/P (MAP) Pulse Ox O2 Delivery O2 Flow Rate FiO2 09/14/18 04:00 98.8 71 16 107/65 (79) 92 09/14/18 00:00 98.2 72 16 90/57 (68) 94 09/13/18 21:00 Room Air 09/13/18 20:00 98.6 90 17 123/79 (94) 95 09/13/18 16:00 97.9 95 16 135/82 (99) 91 09/13/18 12:00 98.1 97 18 115/75 (88) 93 09/13/18 09:00 Room Air Intake and Output 09/13/18 09/14/18 19:00 07:00 Intake Total 555 ml 355 ml Output Total 900 ml 1050 ml Balance -345 ml -695 ml Free Water 500 ml 300 ml Tube Feeding 55 ml 55 ml Output Urine Total 900 ml 1050 ml Height (Feet): 5 Height (Inches): 5.00 Weight (Pounds): 100 General Appearance: no apparent distress EENT: normal ENT inspection Neck: normal alignment, supple Cardiovascular: normal rate, regular rhythm Respiratory/Chest: lungs clear, normal breath sounds Abdomen: non tender, soft Edema: no edema noted Arm (L), no edema noted Arm (R), no edema noted Leg (L), no edema noted Leg (R), no edema noted Pedal (L), no edema noted Pedal (R), no edema noted Generalized Paolo Gutierrez MD Sep 14, 2018 08:06
--- NOTE | 2018-09-14 08:17 | Urology Progress Note ---
Assessment/Plan Status: stable Assessment/Plan: 1. BPH. 2. Lower urinary tract symptoms. 3. Neurogenic bladder. 4. Prostate cancer history, status post radiation. 5. Proteinuria. 6. Hematuria. 7. Mild pyuria. monitor clinically condom cath PRN currently off myrbetriq renal fxn stable f/u on blood cx consider adding flomax d/w pt's Subjective Allergies: Coded Allergies: NO KNOWN DRUG ALLERGIES (Unverified Allergy, Unknown, 03/22/14) Subjective all noted, condom cath Objective Last 24 Hour Vital Signs Date Time Temp Pulse Resp B/P (MAP) Pulse Ox O2 Delivery O2 Flow Rate FiO2 09/14/18 04:00 98.8 71 16 107/65 (79) 92 09/14/18 00:00 98.2 72 16 90/57 (68) 94 09/13/18 21:00 Room Air 09/13/18 20:00 98.6 90 17 123/79 (94) 95 09/13/18 16:00 97.9 95 16 135/82 (99) 91 09/13/18 12:00 98.1 97 18 115/75 (88) 93 09/13/18 09:00 Room Air Intake and Output 09/13/18 09/14/18 19:00 07:00 Intake Total 555 ml 355 ml Output Total 900 ml 1050 ml Balance -345 ml -695 ml Free Water 500 ml 300 ml Tube Feeding 55 ml 55 ml Output Urine Total 900 ml 1050 ml Microbiology Date/Time Source Procedure Growth Status 09/11/18 17:28 Blood Blood Culture - Preliminary NO GROWTH AFTER 48 HOURS Resulted 09/09/18 13:10 Urine,Clean Catch Urine Culture - Final NO GROWTH AFTER 48 HOURS Complete Current Medications Medications (Trade) Dose Ordered Sig/Alirio Route PRN Reason Start Time Stop Time Status Last Admin Dose Admin Levetiracetam 100 ml @ 400 mls/hr Q12HR IVPB 09/09/18 21:00 10/09/18 20:59 09/13/18 21:40 Memantine (Namenda) 10 mg TWICE A DAY GT 09/11/18 18:00 10/09/18 17:59 09/13/18 17:29 Height (Feet): 5 Height (Inches): 5.00 Weight (Pounds): 100 Objective exam stable, grossly yellow urine Bamshad,Haresh Felix MD Sep 14, 2018 08:17
[2018-09-14] MEDS: Memantine 10mg tab GT SCH (08:44)
[2018-09-14] MEDS: levETIRAcetam 500mg/NS100ml 100 ML IVPB SCH (08:44)
--- NOTE | 2018-09-14 08:56 | NUR ---
RADIOLOGY DEPT., CHEST X-RAY DONE.-P.DYE
--- NOTE | 2018-09-14 10:41 | NUR ---
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 FAILURE TO THRIVE . BPH VS: BP 90/57, P 95, T 97.9, RR 19, SpO2 91 IS:MEMANTINE 10mg LEVETIRACETAM 100ml IVPB PLAN: CONDOM CATH PRN 3E MED/SURG
--- NOTE | 2018-09-14 10:56 | NUR ---
DISCHARGE PLANNING FAXED REFERRAL TO [facility]. WILL FOLLOW UP
--- NOTE | 2018-09-14 11:51 | GI Progress Note ---
Assessment/Plan Problems: (1) Severe malnutrition ICD Codes: E43 - Unspecified severe protein-calorie malnutrition SNOMED: 41057914 (2) Encounter for PEG (percutaneous endoscopic gastrostomy) ICD Codes: Z43.1 - Encounter for attention to gastrostomy SNOMED: 860896470, 000498847 (3) Weakness ICD Codes: R53.1 - Weakness SNOMED: 63348650 (4) Dehydration ICD Codes: E86.0 - Dehydration SNOMED: 00052179 (5) Pneumonia ICD Codes: J18.9 - Pneumonia, unspecified organism SNOMED: 205512852 Status: stable Status Narrative Discussed with Dr. Alcocer. Assessment/Plan SUMMARY FINDINGS: 1. Gastritis. 2. Status post successful PEG placement. RECOMMENDATIONS: 1. Abdominal binder. 2. Elevate the head of the bed at all times. 3. G-tube flush. 4. G-tube care. Start G-tube feedings PRN transfusions Reglan as needed for GI motility Follow labs okay for DC per GI standpoint The patient was seen and examined at bedside and all new and available data was reviewed in the patients chart. I agree with the above findings, impression and plan. (Patient seen earlier today. Signature stamp does not reflect patient encounter time.). - Yfn Alcocer MD Subjective Subjective Limited Objective Last 24 Hour Vital Signs Date Time Temp Pulse Resp B/P (MAP) Pulse Ox O2 Delivery O2 Flow Rate FiO2 09/14/18 08:00 97.9 93 19 126/74 (91) 94 09/14/18 04:00 98.8 71 16 107/65 (79) 92 09/14/18 00:00 98.2 72 16 90/57 (68) 94 09/13/18 21:00 Room Air 09/13/18 20:00 98.6 90 17 123/79 (94) 95 09/13/18 16:00 97.9 95 16 135/82 (99) 91 09/13/18 12:00 98.1 97 18 115/75 (88) 93 Intake and Output 09/13/18 09/14/18 19:00 07:00 Intake Total 555 ml 355 ml Output Total 900 ml 1050 ml Balance -345 ml -695 ml Free Water 500 ml 300 ml Tube Feeding 55 ml 55 ml Output Urine Total 900 ml 1050 ml Height (Feet): 5 Height (Inches): 5.00 Weight (Pounds): 100 General Appearance: no apparent distress Cardiovascular: normal rate Respiratory/Chest: normal breath sounds, no respiratory distress Abdominal Exam: normal bowel sounds, non tender, soft, GT site - c/d/i Extremities: non-tender Constance Hawkins NP Sep 14, 2018 11:51
--- NOTE | 2018-09-14 11:57 | NUR ---
DISCHARGE PLANNED PT WILL DC TO [facility] ROOM 11B SKILLED T [phone] FOR NURSE TO NURSE REPORT [facility] WILL EUCLID OPERATOR AT 131
[2018-09-14 12:00] VITALS: BP 115/70
--- NOTE | 2018-09-14 13:13 | Diagnostic Imaging Report ---
Indication: Cough Comparison: 09/10/2018 A single view chest radiograph was obtained. Findings: Suspected infiltrate at the right lung base. This could represent atelectasis. Heart is borderline enlarged. Aorta is ectatic. IMPRESSION: Basal infiltrate versus atelectasis. No change
--- NOTE | 2018-09-14 13:26 | Pulmonology Progress Note ---
Assessment/Plan Assessment/Plan Problem List: 1. Failure to thrive 2. Dehydration 3. RLL pneumonia, likely aspiration 4. Dysphagia s/p PEG 5. Hx prostate cancer 6. PEG 7. Dementia Plan: -abx d/c after 3 days by ID -f/u cultures -repeat CXR stable -cont tube feeds and free water -d/c planning Subjective ROS Limited/Unobtainable: Yes Interval Events: No acute events. Breathing stable. Tolerating tube feeds Allergies: Coded Allergies: NO KNOWN DRUG ALLERGIES (Unverified Allergy, Unknown, 03/22/14) Objective Last 24 Hour Vital Signs Date Time Temp Pulse Resp B/P (MAP) Pulse Ox O2 Delivery O2 Flow Rate FiO2 09/14/18 12:00 98.4 76 19 115/70 (85) 98 09/14/18 09:00 Room Air 09/14/18 08:00 97.9 93 19 126/74 (91) 94 09/14/18 04:00 98.8 71 16 107/65 (79) 92 09/14/18 00:00 98.2 72 16 90/57 (68) 94 09/13/18 21:00 Room Air 09/13/18 20:00 98.6 90 17 123/79 (94) 95 09/13/18 16:00 97.9 95 16 135/82 (99) 91 Intake and Output 09/13/18 09/14/18 19:00 07:00 Intake Total 555 ml 355 ml Output Total 900 ml 1050 ml Balance -345 ml -695 ml Free Water 500 ml 300 ml Tube Feeding 55 ml 55 ml Output Urine Total 900 ml 1050 ml General Appearance: no acute distress HEENT: mucous membranes moist Respiratory/Chest: lungs clear Cardiovascular: normal rate Abdomen: soft, non tender Extremities: no edema Microbiology Date/Time Source Procedure Growth Status 09/11/18 17:28 Blood Blood Culture - Preliminary NO GROWTH AFTER 48 HOURS Resulted 09/11/18 17:20 Blood Blood Culture - Preliminary NO GROWTH AFTER 48 HOURS Resulted Current Medications Medications (Trade) Dose Ordered Sig/Alirio Route PRN Reason Start Time Stop Time Status Last Admin Dose Admin Levetiracetam 100 ml @ 400 mls/hr Q12HR IVPB 09/09/18 21:00 10/09/18 20:59 09/14/18 08:44 Memantine (Namenda) 10 mg TWICE A DAY GT 09/11/18 18:00 10/09/18 17:59 09/14/18 08:44 Antony Grider MD Sep 14, 2018 13:26
--- NOTE | 2018-09-14 13:42 | Infectious Diseases Prog Note ---
Assessment/Plan Assessment/Plan Abx: Cefoxitin x1 09/11 Assessment: Afebrile No leukocytosis -09/09 u/a neg; ucx neg -CXR: Interstitial edema FTT -09/11 SP PEG placement Gram positive bacteremia- contaminant -09/09 BCx 1/4 GS. capitis; 09/11 Bcx NTD Aspiration pneumonitis, s/p short abx tx -CT abd/p: Small pneumoperitoneum. This is an expected finding, given history of gastrostomy earlier the same day. Gastrostomy appears to be in satisfactory position. Considerable retained colonic stool. There is evidence of rectal fecal impaction. Distended bladder. Fairly extensive right lower lobe consolidation, likely pneumonia. Cystic space within the consolidated right lower lobe on the highest cut may represent a area of bronchiectasis. BPH Prostate CA s/p external beam radiation (over 5 years ago) Intracranial bleeding requiring surgery s/p hernia repair Seizure disorder Alzheimer's dementia Plan: -Continue to monitor off abx -09/13 SP Cefepime #3, IV Vancomycin #3 -f/u cx -Monitor CBC/CMP, temperatures -f/u repeat Bcx x2 Thank you for this consultation. Will continue to follow along with you. Discussed with RN. Subjective Allergies: Coded Allergies: NO KNOWN DRUG ALLERGIES (Unverified Allergy, Unknown, 03/22/14) Subjective afebrile no leukocytosis repeat Bcx NTD Objective Vital Signs Last 24 Hour Vital Signs Date Time Temp Pulse Resp B/P (MAP) Pulse Ox O2 Delivery O2 Flow Rate FiO2 09/14/18 12:00 98.4 76 19 115/70 (85) 98 09/14/18 09:00 Room Air 09/14/18 08:00 97.9 93 19 126/74 (91) 94 09/14/18 04:00 98.8 71 16 107/65 (79) 92 09/14/18 00:00 98.2 72 16 90/57 (68) 94 09/13/18 21:00 Room Air 09/13/18 20:00 98.6 90 17 123/79 (94) 95 09/13/18 16:00 97.9 95 16 135/82 (99) 91 Height (Feet): 5 Height (Inches): 5.00 Weight (Pounds): 100 Objective GENERAL: No jugular venous distention. He has bitemporal wasting, cachectic. HEART: S1 and S2. LUNGS: Clear. ABDOMEN: Soft. EXTREMITIES: No clubbing or cyanosis. Microbiology Date/Time Source Procedure Growth Status 09/11/18 17:28 Blood Blood Culture - Preliminary NO GROWTH AFTER 48 HOURS Resulted 09/11/18 17:20 Blood Blood Culture - Preliminary NO GROWTH AFTER 48 HOURS Resulted Current Medications Medications (Trade) Dose Ordered Sig/Alirio Route PRN Reason Start Time Stop Time Status Last Admin Dose Admin Levetiracetam 100 ml @ 400 mls/hr Q12HR IVPB 09/09/18 21:00 10/09/18 20:59 09/14/18 08:44 Memantine (Namenda) 10 mg TWICE A DAY GT 09/11/18 18:00 10/09/18 17:59 09/14/18 08:44 Sayra Potts M.D. Sep 14, 2018 13:42
--- NOTE | 2018-09-14 13:57 | NUR ---
NURSE NOTES: pt has discharge order. all D/C assessments and instructions done. pt is stable. g tube is in place and running well. pt's is aware. Dr COLMENARES is aware about D/C and ordered to continue hospital meds. Report given to [facility], aware about g tube feeding, seizure precautions and other reports. Wound pictures done and uploaded. waiting for ambulance. will continue to monitor.
--- NOTE | 2018-09-14 15:00 | NUR ---
NURSE NOTES: pt is stable, V/S stable. iv access D/C. G tube flushed. belongings list signed by . pt left hospital with accompany of ambulance personnel and .
--- NOTE | 2018-09-14 15:41 | Surgery Progress Note ---
Surgery Progress Note Subjective Symptoms: improved, tolerating diet, passing flatus, BM, pain decreased Objective Last 24 Hour Vital Signs Date Time Temp Pulse Resp B/P (MAP) Pulse Ox O2 Delivery O2 Flow Rate FiO2 09/14/18 12:00 98.4 76 19 115/70 (85) 98 09/14/18 09:00 Room Air 09/14/18 08:00 97.9 93 19 126/74 (91) 94 09/14/18 04:00 98.8 71 16 107/65 (79) 92 09/14/18 00:00 98.2 72 16 90/57 (68) 94 09/13/18 21:00 Room Air 09/13/18 20:00 98.6 90 17 123/79 (94) 95 09/13/18 16:00 97.9 95 16 135/82 (99) 91 I&O Intake and Output 09/13/18 09/14/18 19:00 07:00 Intake Total 555 ml 410 ml Output Total 900 ml 1050 ml Balance -345 ml -640 ml Free Water 500 ml 300 ml Tube Feeding 55 ml 110 ml Output Urine Total 900 ml 1050 ml Dressing: dry Wound: clean Cardiovascular: RSR Respiratory: clear Abdomen: non-tender, present bowel sounds Extremities: no tenderness, no cyanosis Plan Problems: (1) Sepsis (2) Altered mental status (3) Pneumonia (4) Dehydration (5) Weakness (6) Severe malnutrition Assessment & Plan: DAILY ESTIMATED NEEDS: Needs based on Underweight 51kg 30-35 kcals/kg 4188-1115 total kcals 1-1.5 g protein/kg 51-77 g total protein 25-30 mL/kg 2011-9633 total fluid mLs NUTRITION DIAGNOSIS: 1) Increased kcal and pro needs r/t underweight status as evidenced by pt @76% ideal body weight, moderate to severe wasting, adm w/ poor po intake. 2) Inadequate oral intake r/t FTT as evidenced by pt w/ reduced po intake, underweight per guidelines, adm w/ dehydration, now w/ pending PEG placement. (CURRENT DIET: Regular puree + Ensure TID) PO DIET RECOMMENDATIONS: Liberalized REGULAR diet/ texture per BRIM BLOCKER ENTERAL NUTRITION RECOMMENDATIONS: Jevity 1.2 @55ml/hr x24 hrs to provide 1320ml, 1584 kcal, 73g pro, 1065ml free H2O - Rec to start JEVITY 1.2 @25ml for 6 hrs - Advance as tolerated 10ml q4-6 hrs to goal - Water flushes rec 100ml q6hrs - HOB Over 30 degrees ADDITIONAL RECOMMENDATIONS: 1) BRIM BLOCKER eval for oral grat 2) Obtain a calibrated bed scale wt 3) Rec to continue IV hydration until TF's can be initiated. 4) Pt at HIGH RISK FOR REFEEDING REPLETE LYTES PRIOR TO TF INITIATE TF @LOW RATE, 20-25ml/hr 5) rec WC eval for photos-> Add WHITNEY BID w/ GT (F/up w/ eval) 6) WHEN S/P GT PLACEMENT-> DC ADDED ENSURE TID (7) Encounter for PEG (percutaneous endoscopic gastrostomy) (8) Decubital ulcer Assessment & Plan: Pt presented on admission with open DTPI sacrum .Base of wound purple with red tinged margins(L)7.5cm x (W)8cm.Centrally base of wound is open and viable. Darker skin tone without induration periwound extending into both ischial regions. Non-blanchable erythema with fluctuance R heel (L)1.5cm x (W)2cm. Serous filled blister with dark borders L heel (L)4cm x (W)4.5cm. Discussed skin findings with Spouse . Clarified wound stage of wound with spouse that wound is not a stage two but an open DTPI. Spouse verbalized she has been caring for wound in home but acknowledged Pt's skin has been declining due to poor nutritional intake. Wound care interventions discussed with spouse and informed pt would also be placed on a Support Surface mattress. Tx.Plan: Apply Triad Paste to sacrum .Cover with Optifoam drsg. Change every 3 days and prn. Apply Cavilon Skin Barrier to both heels. Cover each heel with Optifoam drsg. Change every 7 days and prn. Reposition at least every 2hours or as tolerated. Off-Load heels with Pillow. APM/GABBY mattress overlay. Continue with above care plan on discharge Juice Nicolas Sep 14, 2018 15:41
--- NOTE | 2018-09-14 20:06 | Neurology Progress Note ---
Interim History Interim History ROS Limited/Unobtainable: Yes Interim History remains the same, alert but non verbal Objective Physical Exam Last Vital Signs Date Time Temp Pulse Resp B/P (MAP) Pulse Ox O2 Delivery O2 Flow Rate FiO2 09/14/18 12:00 98.4 76 19 115/70 (85) 98 09/14/18 09:00 Room Air 09/11/18 11:57 3.0 Neurologic Exam Objective General appearance: alert Head: Normocephalic, without obvious abnormality, atraumatic Eyes: conjunctivae/corneas clear. PERRL Throat: Lips, mucosa, and tongue normal Neck: supple Lungs: non labored Heart: regular rate and rhythm Abdomen: soft Extremities: no cyanosis or edema Pulses: 2+ and symmetric Skin: Skin color, texture, turgor normal. Neurologic: awake, non verbal, does not follow, minimal withdraw in UEs, LEs with contractures Impression/Recommendations Problems: (1) Pneumonia (2) Sepsis (3) Altered mental status (4) Weakness (5) Dehydration Status: stable Diagnostic Impression Advanced dementia, likely alzheimer Non verbal Gtube vs hospice care Luis Chirinos MD Sep 14, 2018 20:06
--- NOTE | 2018-09-15 13:45 | Discharge Summary ---
Discharge Summary Discharge Summary _ DATE OF ADMISSION: 09/09/2018 DATE OF DISCHARGE: 09/14/2018 DISCHARGED BY: Dr. Jaleel Dewitt CONSULTANTS: Dr. Luis Gutierrez BRIEF HOSPITAL COURSE: Patient is an unfortunate 77-year-old male, who presented to ED via paramedics due to continued deterioration. Patient had not been eating or drinking over the past several days. He has medical history significant for advanced dementia , failure to thrive, history of prostate CA status post radiation.. He had weight loss, and was unable to eat. Patient is DNR. On evaluation at the ED, blood pressure was stable. Heart rate was slightly elevated. Blood work did not show any leukocytosis. Hemoglobin and hematocrit were stable. Sodium was elevated to 153. Chloride 112. BUN 21, creatinine 1.3. Troponin was negative. TSH normal. Urinalysis showed +1 leukocyte esterase, 0-2 urine RBC, 0-2 urine WBC, negative nitrite. Chest x-ray showed patchy interstitial prominence. He was then admitted for failure to thrive with severe protein calorie malnutrition and advanced dementia. Patient had hyponatremia with volume depletion. He was given IV hydration. GI was consulted. Long discussion with family was done. Family wanted G-tube placement. Urologist was consulted. Patient had a history of prostate CA with radiation. According to family, outpatient PSA was minimal. He had lower urinary tract symptoms. Myrbetriq was placed on hold. On 09/11/2018, he underwent upper endoscopy with PEG tube placement. He was given cefepime. Blood culture showed growth of gram-positive cocci /. He was started on empiric IV vancomycin pending ID and repeat blood culture. Patient was afebrile and there was no leukocytosis. Patient was noted to have wounds on admission. Surgery was called to evaluate and assist with care. Patient had an open deep tissue pressure injury to the sacrum. Right heel had non-blanchable erythema with fluctuance. Left heel with serous filled blister with dark borders. She was given wound/skin care. She was placed on APM/GABBY mattress overlay with frequent repositioning and offloading. CT of the abdomen and pelvis showed right basilar infiltrate concerning for possible aspiration. Geochemical Manager was consulted. Repeat chest x-ray was stable Dehydration resolved. Hypokalemia was corrected. Repeat blood culture did not isolate any growth. Antibiotics were discontinued. He was tolerating tube feeding well. He was then discharged to a SNF. FINAL DIAGNOSES: Right lower lobe pneumonia, likely aspiration pneumonia Dysphagia status post PEG tube placement 09/11/2018 Dehydration Hypokalemia Alzheimer's dementia Weakness/failure to thrive with severe protein calorie malnutrition Decubitus ulcer, stated above, present on admission Gram-positive bacteremia, possibly contaminant BPH Prostate CA status post external beam radiation over 5 years ago Seizure disorder History of intracranial bleed Neurogenic bladder Proteinuria Mild pyuria DISPOSITION: Patient was discharged to a SNF. DISCHARGE MEDICATIONS: Refer to Discharge Medication List. I have been assigned to complete a discharge summary on this account, I was not involved with the patient's management.--SAROJ Sawyer Jacqueline Robles NP Sep 15, 2018 13:45
--- NOTE | 2018-09-18 21:01 | Cardiology Report ---
APPROVED REPORT EKG Measurement Heart [id number] [place] 120P66 [id number] Sinus rhythm with premature atrial complexes Otherwise normal ECG
== END 2018-09-14 15:20 | DRG 177 ==
LOC: EDBD 12:00 → EMR 12:39 → 3E 12:48 → EDBEDREQ 13:39
PROC: 0DH63UZ Insertion of Feeding Device into Stomach, Percutaneous Approach (ICD-10-PCS; principal; 2018-09-11 11:12)
DX: J69.0 Pneumonitis due to inhalation of food and vomit (principal); E43 Unspecified severe protein-calorie malnutrition; G93.41 Metabolic encephalopathy; Z68.1 Body mass index [BMI] 19.9 or less, adult; N39.0 Urinary tract infection, site not specified; E87.0 Hyperosmolality and hypernatremia; N17.9 Acute kidney failure, unspecified; R62.7 Adult failure to thrive; N40.1 Benign prostatic hyperplasia with lower urinary tract symptoms; E86.0 Dehydration; N31.9 Neuromuscular dysfunction of bladder, unspecified; G30.9 Alzheimer's disease, unspecified; F02.80 Dementia in other diseases classified elsewhere, unspecified severity, without behavioral disturbance, psychotic disturbance, mood disturbance, and anxiety; Z92.3 Personal history of irradiation; Z85.46 Personal history of malignant neoplasm of prostate; L89.150 Pressure ulcer of sacral region, unstageable; K29.70 Gastritis, unspecified, without bleeding; R13.10 Dysphagia, unspecified; E87.6 Hypokalemia
CPT/HCPCS: 36415; 71045; 74176; 80048; 80053; 80202; 81003; 82550; 82553; 83605; 83690; 84153; 84443; 84484; 85025; 87040; 87086; 87181; 93005; 94003; 94150; 96360; 99285

== ENCOUNTER 2018-10-01 15:37 | Inpatient (IN) | payer MEDICARE, OTHER ==
[~2018-10-01] VITALS: Ht 172.7 cm; Wt 51.7 kg
[~2018-10-01 15:37] MED LIST changes: +KEPPRA500 M4 ORAL; +KEPPRA500 MG GT; +NAMENDA10 MG ORAL; +Vancomycin 750mg/D5W 275ml IVPB SCH
[2018-10-01] MEDS ORDERED: LORATADINE10 M1 GT (15:45)
[2018-10-01] MEDS ORDERED: HEPARIN2000 UNIT/ IV (15:45)
[2018-10-01 15:59] VITALS: BP 124/96
--- NOTE | 2018-10-01 16:01 | Emergency Room Report ---
History of Present Illness General Chief Complaint: Dyspnea/Respdistress Source: Medical Record, EMS Present Illness HPI Disclaimer: Please note that this report is being documented using DRAGON technology. This can lead to erroneous entry secondary to incorrect interpretation by the dictating instrument. HPI: 77-year-old male with a history of advanced dementia, prior brain bleed, prostate cancer status post radiation, recently discharged on 09/15/2018 for aspiration pneumonia presents for shortness of breath. The patient's dementia makes it difficult to obtain any additional history. According to EMS, his usp noticed increased work of breathing earlier this morning which slowly deteriorated throughout the day. He was saturating 94% on room air on EMS arrival though was significantly tachycardic. He was in mild respiratory distress according to EMS. No other reported change in his health since discharge according to EMS. No additional information at this time. On discharge on 09/15 it was noted that the patient was DNR. The forms EMS has with them signed on 09/09 indicate he is a full code. Will clarify with nursing facility. PMH: Prostate cancer status post radiation, Alzheimer dementia, anemia, hypokalemia, subdural hematoma PSH: Unknown Allergies: Unknown Social Hx: Known Allergies: Coded Allergies: NO KNOWN DRUG ALLERGIES (Unverified Allergy, Unknown, 03/22/14) Nursing Documentation-PMH Hx Cardiac Problems: No Hx Cancer: Yes Hx Gastrointestinal Problems: Yes Hx Neurological Problems: Yes Hx Dementia: Yes Hx Alzheimer's Disease: Yes Hx Seizures: Yes Hx Memory Loss: Yes Review of Systems All Other Systems: limited - Due to dementia Physical Exam Vital Signs Date Time Temp Pulse Resp B/P (MAP) Pulse Ox O2 Delivery O2 Flow Rate FiO2 10/01/18 15:38 99.1 68 16 113/79 (90) 94 Room Air General: Awake and alert, mild respiratory distress, cachectic and frail- appearing HEENT: NC/AT. EOMI. sunken eyes. Edentulous, dry mucous membranes Neck: Supple, trachea midline Chest Wall: No tenderness, no deformity Cardiovascular: Tachycardic. S1 and S2 normal. No murmur appreciated Resp: Increased work of breathing, rales bilaterally. Intermittent cough. On nonrebreather, no wheezing appreciated Abdomen: Abdomen is soft, nondistended. Nontender Skin: Intact. No abrasions, laceration or rash over the exposed skin MSK: Atrophy of the upper and lower extremities. No lower extremity edema Neuro: Awake, not responding verbally, moaning. Movements of all extremities Procedures Critical Care Time Critical Care Time Total critical care time: Approximately 31 minutes Due to a high probability of clinically significant, life threatening deterioration, the patient required the highest level of preparedness to intervene emergently and I personally spent this critical care time directly and personally managing the patient. This critical care time included obtaining a history, examining the patient, pulse oximetry, ordering and reviewing studies , ordering treatments, evaluating response to treatment and updating management plan as needed, and discussion with other providers as well as arranging for ultimate disposition. This critical to care time was performed to assess and manage the high probability of life-threatening deterioration that could result in multiorgan failure. This critical care time is separate from the separately billable procedures. Medical Decision Making Diagnostic Impression: Primary Impression: Pneumonia Additional Impressions: Sepsis UTI (urinary tract infection) ER Course 77-year-old male presenting from his nursing facility today with increased work of breathing and mild rotatory distress. He is saturating 96% on nonrebreather though is tachycardic with a heart rate in the 130s. We will start a broad sepsis work-up in his recent admission for aspiration pneumonia. Must clarify CODE STATUS however at this time we will treat him as a full code. He does not require intubation at this time. EKG on arrival shows sinus tachycardia with a rate of 136, nonischemic changes, left axis deviation but otherwise largely unremarkable. EKG Diagnostic Results EKG Time: 15:46 Rate: tachycardiac Rhythm: NSR ST Segments: no acute changes Other Impression Left axis deviation Rhythm Strip Diag. Results Rhythm Strip Time: 15:46 EP Interpretation: yes Rate: 130s Rhythm: other - Tachycardia Chest X-Ray Diagnostic Results Chest X-Ray Diagnostic Results : Chest X-Ray Ordered: Yes # of Views/Limited/Complete: 1 View Indication: Shortness of Breath Impression: Other - Bilateral infiltrates concerning for pneumonia Electronically Signed by: Electronically signed by Dr. Adam Chowdhury Reevaluation Time: 17:37 Last Vital Signs Date Time Temp Pulse Resp B/P (MAP) Pulse Ox O2 Delivery O2 Flow Rate FiO2 10/01/18 15:38 99.1 68 16 113/79 (90) 94 Room Air Status: unchanged Reevaluation Impression Chest x-ray concerning for bilateral infiltrates significant for pneumonia, either from his previous admission that did not fully resolve or repeat infection. Urinalysis also concerning for acute urinary tract infection. Will cover with antibiotics. He has received antipyretics for his fever. Labs show no significant white count at this time though there is a neutrophil shift at 81.6%. Potassium elevated at 5.9 as his lactate at 3.9. He is receiving sepsis fluids. Family is present at bedside. They are currently debating his CODE STATUS. As of right now he will be treated as a full code however he may be made DNR soon. I updated family on imaging and labs. They understand and agree with admission. Will admit to Dr. Marques in the stepdown unit. 2010: Patient continues to receive IV fluids. One slight episode of hypotension though this resolved after persistent fluids. I again spoke with the family who is at this time choosing to keep him a full code but is considering DNR/DNI. Will be admitted to stepdown unit. Disposition: ADMITTED INPATIENT Admit Decision Time: 17:37 Condition: Serious Adam Chowdhury MD Oct 01, 2018 16:01
[2018-10-01] MEDS ORDERED: Acetaminophen 650 MG SUPP RECTAL ONE (16:30)
[2018-10-01 17:11] LABS: APPEARANCE,URINE CLOUDY; BASOPHILS % (AUTO) 0.3 % (0.0-2.0); BILIRUBIN, URINE NEGATIVE (NEGATIVE); COLOR,URINE AMBER; GLUCOSE, URINE (UA) NEGATIVE (NEGATIVE); HEMATOCRIT 47.8 % (42.0-52.0); HEMOGLOBIN 15.4 G/DL (14.2-18.0); KETONES,URINE NEGATIVE (NEGATIVE); LEUKOCYTE ESTERASE ,URINE 3+ (NEGATIVE); LYMPHOCYTES % (AUTO) 13.5 % (20.0-45.0); MEAN CORPUSCULAR VOLUME 89 FL (80-99); MONOCYTES % (AUTO) 4.6 % (1.0-10.0); NEUTROPHILS % (AUTO) 81.6 % (45.0-75.0); NITRITE,URINE POSITIVE (NEGATIVE); PH,URINE 7 (4.5-8.0); PLATELET COUNT 364 K/UL (150-450); PROTEIN,URINE 2+ (NEGATIVE); RED BLOOD COUNT 5.36 M/UL (4.70-6.10); UROBILINOGEN,URINE 4 MG/DL (0.0-1.0)
[2018-10-01 17:23] LABS: ALANINE AMINOTRANSFERASE 42 U/L (12-78); ALBUMIN/GLOBULIN RATIO 0.3 (1.0-2.7); ALKALINE PHOSPHATASE 92 U/L (46-116); ANION GAP 8 mmol/L (5-15); ASPARTATE AMINO TRANSFERASE 37 U/L (15-37); BILIRUBIN,TOTAL 0.7 MG/DL (0.2-1.0); BLOOD UREA NITROGEN 17 mg/dL (7-18); CALCIUM 9.6 MG/DL (8.5-10.1); CARBON DIOXIDE 26 MMOL/L (21-32); CHLORIDE 99 MMOL/L (98-107); CKMB 1.4 NG/ML (0.0-3.6); CREATINE KINASE 109 U/L (26-308); CREATININE 1.1 MG/DL (0.55-1.30); POTASSIUM 5.9 MMOL/L (3.5-5.1); SODIUM 133 MMOL/L (136-145)
[2018-10-01] MEDS ORDERED: Cefepime HCl 2 GM in NS 110 ML IV SCH (17:30)
[2018-10-01 19:00] VITALS: BP 127/98
[2018-10-01 19:50] VITALS: BP 87/73
[2018-10-01 20:30] VITALS: BP 98/70
[2018-10-01 21:00] VITALS: BP 110/64
[2018-10-01] MEDS: D5NS 1,000 ML IV SCH (23:26)
[2018-10-02] VITALS: BP_SYST 110; BP_SYST 121; BP_DIAS 58; BP_DIAS 68
[2018-10-02] MEDS ORDERED: Piperacillin/Tazobactam 3.375 GM in NS 110 ML IVPB SCH ×2
[2018-10-02] MEDS ORDERED: Zoysn 3.37gm in NS 100ML IVPB SCH ×2
[2018-10-02] MEDS: levETIRAcetam 500mg/NS100ml 100 ML IVPB SCH ×3 (01:01→20:37)
[2018-10-02 04:00] VITALS: BP 114/70
[2018-10-02 05:19] LABS: HEMATOCRIT 40.9 % (42.0-52.0); HEMOGLOBIN 13.1 G/DL (14.2-18.0); MEAN CORPUSCULAR VOLUME 91 FL (80-99); PLATELET COUNT 304 K/UL (150-450); RED BLOOD COUNT 4.47 M/UL (4.70-6.10); RED CELL DISTRIBUTION WIDTH 12.6 % (11.6-14.8); WHITE BLOOD COUNT 8.5 K/UL (4.8-10.8)
[2018-10-02 05:29] LABS: ANION GAP 9 mmol/L (5-15); BLOOD UREA NITROGEN 14 mg/dL (7-18); CALCIUM 8.8 MG/DL (8.5-10.1); CARBON DIOXIDE 23 MMOL/L (21-32); CHLORIDE 106 MMOL/L (98-107); CREATININE 0.8 MG/DL (0.55-1.30); POTASSIUM 4.2 MMOL/L (3.5-5.1); SODIUM 138 MMOL/L (136-145)
[2018-10-02] MEDS: Zoysn 3.37gm in NS 100ML IVPB SCH ×3 (05:31→21:51)
[2018-10-02 08:00] VITALS: BP 108/68
[2018-10-02] MEDS ORDERED: Vancomycin 1 GM in D5W 275 ML IVPB SCH (09:00)
[2018-10-02] MEDS: Heparin 5000 units/ml inj SUBQ SCH ×2 (09:25→20:38)
[2018-10-02] MEDS: Vancomycin 750mg/D5W 275ml IVPB SCH ×2 (09:48)
[2018-10-02 12:00] VITALS: BP 103/58
--- NOTE | 2018-10-02 12:13 | Cardiology Report ---
APPROVED REPORT EKG Measurement Heart [id number] [place] 116P69 [id number] Sinus tachycardia Right atrial enlargement Left axis deviation Inferior infarct, age undetermined Abnormal ECG
--- NOTE | 2018-10-02 12:49 | Diagnostic Imaging Report ---
Indication: Dyspnea Comparison: 09/14/2018 A single view chest radiograph was obtained. Findings: Extensive infiltrates are present bilaterally with mixed interstitial alveolar opacities, heterogeneously distributed throughout both lung yao. Heart size remains normal. Bones are osteopenic. IMPRESSION: Extensive bilateral infiltrates. Differential includes pulmonary edema, especially noncardiogenic etiologies.
--- NOTE | 2018-10-02 15:14 | GI Initial Consult Note ---
History of Present Illness General Date patient seen: Oct 02, 2018 Time patient seen: 15:02 Reason for Hospitalization: Dyspnea/Respdistress Referring physician: MICHELLE SMALLS Reason for Consultation: GT Management Present Illness HPI 77-year-old male with a history of advanced dementia, prior brain bleed, prostate cancer status post radiation, recently discharged on 09/15/2018 for aspiration pneumonia presents for shortness of breath. The patient's dementia makes it difficult to obtain any additional history. According to EMS, his skilled nursing noticed increased work of breathing earlier this morning which slowly deteriorated throughout the day. He was saturating 94% on room air on EMS arrival though was significantly tachycardic. He was in mild respiratory distress according to EMS. No other reported change in his health since discharge according to EMS. No additional information at this time. On discharge on 09/15 it was noted that the patient was DNR. The forms EMS has with them signed on 09/09 indicate he is a full code. GI consulted for G-tube management. ROS limited, patient nonverbal. No apparent distress no active signs symptoms of nausea vomiting. Patient is G- tube dependent, site is clean dry and intact patient had recent G-tube placement back pain 2018. All information obtained from medical record. Home Meds Reported Medications Heparin Sodium,Porcine/Ns/Pf (Heparin) 2,000 Unit/1000 Ml Iv.soln, 5000 UNIT IV 10/01/18 Loratadine (LORATADINE) 10 Mg Tab.rapdis, 10 MG PO, TAB 10/01/18 Levetiracetam (Keppra) 250 Mg Tablet, 500 MG ORAL TWICE A DAY, #50 TAB 0 Refills 09/09/18 Memantine Hcl* (NAMENDA*) 10 Mg Tablet, 10 MG ORAL TWICE A DAY, TAB 09/09/18 Melatonin (MELATONIN) 5 Mg Tab.ir.er, 5 MG PO QHS for Insomnia 02/03/17 Memantine Hcl* (NAMENDA*) 5 Mg Tablet, 10 MG ORAL TWICE A DAY, TAB 02/01/17 Med list reviewed/reconciled: Yes Allergies: Coded Allergies: NO KNOWN DRUG ALLERGIES (Unverified Allergy, Unknown, 03/22/14) Patient History Limited by: medical condition History Provided By: Medical Record PMH Narrative PMH: Prostate cancer status post radiation, Alzheimer dementia, anemia, hypokalemia, subdural hematoma PSH: Unknown Allergies: Unknown Social Hx: Known Allergies: Coded Allergies: NO KNOWN DRUG ALLERGIES (Unverified Allergy, Unknown, 03/22/14) Nursing Documentation-PMH Hx Cardiac Problems: No Hx Cancer: Yes Hx Gastrointestinal Problems: Yes Hx Neurological Problems: Yes Hx Dementia: Yes Hx Alzheimer's Disease: Yes Hx Seizures: Yes Hx Memory Loss: Yes Review of Systems All Other Systems: negative except mentioned in HPI Physical Exam Vital Signs Date Time Temp Pulse Resp B/P (MAP) Pulse Ox O2 Delivery O2 Flow Rate FiO2 10/01/18 15:38 99.1 68 16 113/79 (90) 94 Room Air 10/01/18 15:59 15.0 Sp02 EP Interpretation: normal Labs Laboratory Tests Test 10/01/18 16:00 10/01/18 19:18 10/02/18 03:25 White Blood Count 10.0 K/UL (4.8-10.8) 8.5 K/UL (4.8-10.8) Red Blood Count 5.36 M/UL (4.70-6.10) 4.47 M/UL (4.70-6.10) L Hemoglobin 15.4 G/DL (14.2-18.0) 13.1 G/DL (14.2-18.0) L Hematocrit 47.8 % (42.0-52.0) 40.9 % (42.0-52.0) L Mean Corpuscular Volume 89 FL (80-99) 91 FL (80-99) Mean Corpuscular Hemoglobin 28.7 PG (27.0-31.0) 29.4 PG (27.0-31.0) Mean Corpuscular Hemoglobin Concent 32.2 G/DL (32.0-36.0) 32.1 G/DL (32.0-36.0) Red Cell Distribution Width 13.0 % (11.6-14.8) 12.6 % (11.6-14.8) Platelet Count 364 K/UL (150-450) 304 K/UL (150-450) Mean Platelet Volume 6.4 FL (6.5-10.1) L 6.6 FL (6.5-10.1) Neutrophils (%) (Auto) 81.6 % (45.0-75.0) H % (45.0-75.0) Lymphocytes (%) (Auto) 13.5 % (20.0-45.0) L % (20.0-45.0) Monocytes (%) (Auto) 4.6 % (1.0-10.0) % (1.0-10.0) Eosinophils (%) (Auto) 0.0 % (0.0-3.0) % (0.0-3.0) Basophils (%) (Auto) 0.3 % (0.0-2.0) % (0.0-2.0) Urine Color Rina Urine Appearance Cloudy Urine pH 7 (4.5-8.0) Urine Specific [place] 1.005 (1.005-1.035) Urine Protein 2+ (NEGATIVE) H Urine Glucose (UA) Negative (NEGATIVE) Urine Ketones Negative (NEGATIVE) Urine Blood 2+ (NEGATIVE) H Urine Nitrite Positive (NEGATIVE) H Urine Bilirubin Negative (NEGATIVE) Urine Ictotest Negative (NEGATIVE) Urine Urobilinogen 4 MG/DL (0.0-1.0) H Urine Leukocyte Esterase 3+ (NEGATIVE) H Urine RBC 5-10 /HPF (0 - 0) H Urine WBC 20-30 /HPF (0 - 0) H Urine Squamous Epithelial Cells Moderate /LPF (NONE/OCC) H Urine Amorphous Sediment Moderate /LPF (NONE) H Urine Bacteria Many /HPF (NONE) H Sodium Level 133 MMOL/L (136-145) L 138 MMOL/L (136-145) Potassium Level 5.9 MMOL/L (3.5-5.1) H 4.2 MMOL/L (3.5-5.1) Chloride Level 99 MMOL/L (98-107) 106 MMOL/L (98-107) Carbon Dioxide Level 26 MMOL/L (21-32) 23 MMOL/L (21-32) Anion Gap 8 mmol/L (5-15) 9 mmol/L (5-15) Blood Urea Nitrogen 17 mg/dL (7-18) 14 mg/dL (7-18) Creatinine 1.1 MG/DL (0.55-1.30) 0.8 MG/DL (0.55-1.30) Estimat Glomerular Filtration Rate mL/min (>60) mL/min (>60) Glucose Level 218 MG/DL (74-106) H 106 MG/DL (74-106) # Lactic Acid Level 3.90 mmol/L (0.4-2.0) H 3.80 mmol/L (0.66-2.22) H Calcium Level 9.6 MG/DL (8.5-10.1) 8.8 MG/DL (8.5-10.1) Total Bilirubin 0.7 MG/DL (0.2-1.0) Aspartate Amino Transf (AST/SGOT) 37 U/L (15-37) Alanine Aminotransferase (ALT/SGPT) 42 U/L (12-78) Alkaline Phosphatase 92 U/L (46-116) Total Creatine Kinase 109 U/L (26-308) Creatine Kinase MB 1.4 NG/ML (0.0-3.6) Creatine Kinase MB Relative Index 1.2 Troponin I 0.026 ng/mL (0.000-0.056) Total Protein 8.0 G/DL (6.4-8.2) Albumin 2.0 G/DL (3.4-5.0) L Globulin 6.0 g/dL Albumin/Globulin Ratio 0.3 (1.0-2.7) L General Appearance: well appearing, no apparent distress, alert Head: normocephalic EENT: PERRL/EOMI, normal ENT inspection Neck: supple Respiratory: normal breath sounds, no respiratory distress Cardiovascular: normal rate Gastrointestinal: normal inspection, non tender, soft, normal bowel sounds, non -distended Rectal: deferred Genitourinary: deferred Musculoskeletal: normal inspection, back normal Neurologic: alert, responsive Psychiatric: memory normal Skin: normal inspection, normal color, no rash, warm/dry, palpation normal, well hydrated Lymphatic: normal inspection, no adenopathy Current Medications Current Medications Medications (Trade) Dose Ordered Sig/Alirio Route PRN Reason Start Time Stop Time Status Last Admin Dose Admin Dextrose/Sodium Chloride 1,000 ml @ 50 mls/hr Q20H IV 10/01/18 23:15 10/31/18 23:14 10/01/18 23:26 Heparin Sodium (Porcine) (Heparin 5000 units/ml) 5,000 units EVERY 12 HOURS SUBQ 10/02/18 09:00 11/01/18 08:59 10/02/18 09:25 Levetiracetam 100 ml @ 400 mls/hr Q12HR IVPB 10/01/18 23:30 10/31/18 23:29 10/02/18 09:23 Piperacillin Sod/ Tazobactam Sod 3.375 gm/Sodium Chloride 110 ml @ 27.5 mls/hr Q8H IVPB 10/02/18 06:00 10/09/18 05:59 10/02/18 05:31 Vancomycin HCl (Vanco rx to dose) 1 ea DAILY PRN MISC pharmacy to dose 10/01/18 23:30 10/31/18 23:29 Vancomycin HCl 750 mg/Dextrose 275 ml @ 183.333 mls/hr Q24H IVPB 10/02/18 09:00 10/07/18 08:59 10/02/18 09:48 GI: Plan Problems: (1) G tube feedings (2) Severe malnutrition (3) Weakness (4) Dehydration Plan G tube dependent RECOMMENDATIONS: Start G-tube feedings per RD GT site care daily/prn PRN transfusions Reglan as needed for GI motility Follow labs bowel regime will follow along with additional recommendations Discussed with Dr. Alcocer. Thank you for this patient referral, we will follow. The patient was seen and examined at bedside and all new and available data was reviewed in the patients chart. I agree with the above findings, impression and plan. (Patient seen earlier today. Signature stamp does not reflect patient encounter time.). - MD Shruthi Miller,[facility] [employer] Oct 02, 2018 15:14
[2018-10-02] MEDS ORDERED: D5NS 1000ml IV ONE (15:57)
[2018-10-02] MEDS ORDERED: Tubing IV Secondary IV ONE (15:57)
[2018-10-02 16:00] VITALS: BP 115/69
[2018-10-02] MEDS: Docusate 100mg/10ml Liq GT SCH (18:04)
[2018-10-02] MEDS ORDERED: MELATONIN 3 MG1 EAC1 GT (18:54)
[2018-10-02] MEDS: D5NS 1,000 ML IV SCH (19:34)
[2018-10-02 20:00] VITALS: BP 93/57
--- NOTE | 2018-10-02 23:17 | History & Physical ---
History of Present Illness General Date patient seen: Oct 02, 2018 Time patient seen: 11:00 Reason for Hospitalization: Dyspnea/Respdistress Present Illness HPI this is a demented patient teih histoyof prostate cancer [facility] admmited with grazyna villafuerte hisotryo is obtained from patient history got from [facility]. Allergies: Coded Allergies: NO KNOWN DRUG ALLERGIES (Unverified Allergy, Unknown, 03/22/14) Medication History Scheduled Heparin Sodium,Porcine/Ns/Pf (Heparin), 5,000 UNIT IV EVERY 8 HOURS, (Reported) Levetiracetam (Keppra), 500 MG GT TWICE A DAY, (Reported) Loratadine (Loratadine), 10 MG GT DAILY, (Reported) Memantine Hcl* (Namenda*), 10 MG ORAL TWICE A DAY, (Reported) Scheduled PRN Melatonin/Pyridoxine HCl (B6) (Melatonin 3 mg Tablet), 1 EACH GT BEDTIME PRN for SUPPLEMENT, (Reported) Discontinued Medications Melatonin (Melatonin), 5 MG PO QHS, (Reported) Discontinued Reason: Prescription changed Patient History Healthcare decision maker Resuscitation status Full Code Advanced Directive on File No Review of Systems Review of Symptoms unobtainable from patient Physical Exam Physical Exam General appearance: , no distress Head: Normocephalic, temporal wasted Neck: , no carotid bruit and no JVD Lungs: cdiminsihed baasalr bvreath sound Heart: regular rate and rhythm, S1, S2 normal, Abdomen: soft, non-tender. Bowel sounds normal. g tube in palcve Extremities: extremities normal, atraumatic, no cyanosis or edema Last 24 Hour Vital Signs Date Time Temp Pulse Resp B/P (MAP) Pulse Ox O2 Delivery O2 Flow Rate FiO2 10/02/18 20:00 4.0 10/02/18 20:00 97.6 108 19 93/57 (69) 100 10/02/18 20:00 Nasal Cannula 4.0 10/02/18 16:00 108 10/02/18 16:00 4.0 10/02/18 16:00 Nasal Cannula 4.0 10/02/18 16:00 97.6 106 19 115/69 (84) 100 106 10/02/18 12:00 96 10/02/18 12:00 4.0 10/02/18 12:00 98.9 76 19 103/58 (73) 99 10/02/18 12:00 Nasal Cannula 4.0 10/02/18 08:00 4.0 10/02/18 08:00 Nasal Cannula 4.0 10/02/18 08:00 98.6 94 19 108/68 (81) 100 10/02/18 08:00 95 10/02/18 04:00 97.2 118 24 114/70 (85) 100 10/02/18 04:00 Nasal Cannula 4.0 10/02/18 04:00 4.0 10/02/18 03:26 103 10/02/18 00:00 4.0 10/02/18 00:00 98.3 111 22 110/58 (75) 100 10/02/18 00:00 Nasal Cannula 4.0 10/01/18 23:32 113 Intake and Output 10/01/18 10/02/18 19:00 07:00 Intake Total 534.55 ml Output Total 250 ml Balance 284.55 ml Intake Oral 0 ml IV Total 534.55 ml Output Urine Total 250 ml # Bowel Movements 3 Laboratory Tests Test 10/02/18 03:25 White Blood Count 8.5 K/UL (4.8-10.8) Red Blood Count 4.47 M/UL (4.70-6.10) L Hemoglobin 13.1 G/DL (14.2-18.0) L Hematocrit 40.9 % (42.0-52.0) L Mean Corpuscular Volume 91 FL (80-99) Mean Corpuscular Hemoglobin 29.4 PG (27.0-31.0) Mean Corpuscular Hemoglobin Concent 32.1 G/DL (32.0-36.0) Red Cell Distribution Width 12.6 % (11.6-14.8) Platelet Count 304 K/UL (150-450) Mean Platelet Volume 6.6 FL (6.5-10.1) Neutrophils (%) (Auto) % (45.0-75.0) Lymphocytes (%) (Auto) % (20.0-45.0) Monocytes (%) (Auto) % (1.0-10.0) Eosinophils (%) (Auto) % (0.0-3.0) Basophils (%) (Auto) % (0.0-2.0) Sodium Level 138 MMOL/L (136-145) Potassium Level 4.2 MMOL/L (3.5-5.1) Chloride Level 106 MMOL/L (98-107) Carbon Dioxide Level 23 MMOL/L (21-32) Anion Gap 9 mmol/L (5-15) Blood Urea Nitrogen 14 mg/dL (7-18) Creatinine 0.8 MG/DL (0.55-1.30) Estimat Glomerular Filtration Rate mL/min (>60) Glucose Level 106 MG/DL (74-106) # Calcium Level 8.8 MG/DL (8.5-10.1) Height (Feet): 5 Height (Inches): 8.00 Weight (Pounds): 110 Medications Current Medications Medications (Trade) Dose Ordered Sig/Alirio Route PRN Reason Start Time Stop Time Status Last Admin Dose Admin Dextrose/Sodium Chloride 1,000 ml @ 50 mls/hr Q20H IV 10/01/18 23:15 10/31/18 23:14 10/02/18 19:34 Docusate Sodium (Colace) 100 mg THREE TIMES A DAY GT 10/02/18 18:00 11/01/18 17:59 10/02/18 18:04 Heparin Sodium (Porcine) (Heparin 5000 units/ml) 5,000 units EVERY 12 HOURS SUBQ 10/02/18 09:00 11/01/18 08:59 10/02/18 20:38 Levetiracetam 100 ml @ 400 mls/hr Q12HR IVPB 10/01/18 23:30 10/31/18 23:29 10/02/18 20:37 Piperacillin Sod/ Tazobactam Sod 3.375 gm/Sodium Chloride 110 ml @ 27.5 mls/hr Q8H IVPB 10/02/18 06:00 10/09/18 05:59 10/02/18 21:51 Vancomycin HCl (Vanco rx to dose) 1 ea DAILY PRN MISC pharmacy to dose 10/01/18 23:30 10/31/18 23:29 Vancomycin HCl 750 mg/Dextrose 275 ml @ 183.333 mls/hr Q24H IVPB 10/02/18 09:00 10/07/18 08:59 10/02/18 09:48 Assessment/Plan Status Narrative aspiration penumionia failure to thrive dementia dyaphgia historyof cva history of seizure Assessment/Plan: resuem low dose g tube feed ivvf iv antibiotcv anti epelipetic medicaiotn will discuss withfamily possiblity of palliaticve care,.- [facility] Hospital declaration INPATIENT level of care is warranted for this patient because patient is a 89 year old with who presents with suspicion of . I have a high level of concern because . Patient is at high risk for . Plan of care/treatment include . Patient care is expected to be greater than 2 midnights. OBSERVATION level of care is warranted for this patient. Patient is a 89 year old with who presents with . Patient will be admitted for 1 midnight, but if additional night(s) is/are necessary, patient will be converted to inpatient status for the entire hospitalization Disposition: Once the patient is stable to leave the hospital, I anticipate the patient will likely be discharged to the following environment: Estimated discharge date: I spent 70 minutes on this patient's case, and minutes was dedicated to counseling and/or care coordination. MIPS (Merit-based Incentive Payment System) Applicable CPT: 76898, 64337 CHECK ALL THAT ARE MET: Measure #5 (CHF): All ages. Prescribe ARSLAN/ARB upon discharge for patients with left ventricular systolic dysfunction. If not, the reason is clearly documented in the medical chart. Measure #8 (CHF): All ages. Prescribe a beta ariana upon discharge for patients with left ventricular systolic dysfunction. If not, the reason is clearly documented in the medical chart. Measure #47 Advance care plan or surrogate decision maker documented in the medical record. Measure #130 The provider has documented, updated, or reviewed the patients current medication list and has documented it in the patients note. Measure #374 (All): Send report to referring provider. Measure #407(Sepsis due to MSSA bacteremia): Age 18+ Patient treated with a beta-lactam antibiotic (Nafcillin, Oxacillin or Cefazolin) as definitive therapy. MEDICAL COMPLEXITY High complexity medical decision making (need 2/3 categories) Problem - need 4 points Acute/new problem with new plan for workup (4 points, 1 max) Acute/new problem without additional workup (3 points, 1 max) Unstable chronic problem actively being managed (2 point each, 2 max) Stable chronic problem actively being managed (1 point each, 2 max) Self-limited/transient process (constipation, muscle ache, etc) (1 point each , 2 max) Data - need 4 points Reviewed labs/imaging studies (1 points, 2 max) Independent review of imaging (EKG, xrays, etc) (2 points, 2 max) Discussed case with consult/other MD/RN (2 points, 2 max) High Risk - qualify if have one of the following: Severe exacerbation of acute problem, acute mental status change, IV narcotics , monitoring drug levels (vancomycin, INR, tacrolimus etc) Jaleel Dewitt MD Oct 02, 2018 23:16
[2018-10-03] VITALS: BP 105/57
[2018-10-03 04:00] VITALS: BP 108/59
[2018-10-03 05:18] LABS: HEMATOCRIT 36.8 % (42.0-52.0); HEMOGLOBIN 11.9 G/DL (14.2-18.0); MEAN CORPUSCULAR VOLUME 91 FL (80-99); PLATELET COUNT 267 K/UL (150-450); RED BLOOD COUNT 4.06 M/UL (4.70-6.10); RED CELL DISTRIBUTION WIDTH 13.4 % (11.6-14.8); WHITE BLOOD COUNT 13.7 K/UL (4.8-10.8)
[2018-10-03 05:26] LABS: ANION GAP 6 mmol/L (5-15); BLOOD UREA NITROGEN 8 mg/dL (7-18); CALCIUM 8.8 MG/DL (8.5-10.1); CARBON DIOXIDE 26 MMOL/L (21-32); CHLORIDE 103 MMOL/L (98-107); CREATININE 0.7 MG/DL (0.55-1.30); POTASSIUM 3.2 MMOL/L (3.5-5.1); SODIUM 135 MMOL/L (136-145)
[2018-10-03] MEDS: Zoysn 3.37gm in NS 100ML IVPB SCH ×2 (06:04→15:12)
[2018-10-03 08:00] VITALS: BP 117/71
[2018-10-03] MEDS: Docusate 100mg/10ml Liq GT SCH (08:11)
[2018-10-03] MEDS: levETIRAcetam 500mg/NS100ml 100 ML IVPB SCH ×2 (08:31→22:08)
[2018-10-03] MEDS: Heparin 5000 units/ml inj SUBQ SCH ×2 (08:42→22:00)
[2018-10-03] MEDS: Vancomycin 750mg/D5W 275ml IVPB SCH ×2 (09:57)
--- NOTE | 2018-10-03 10:01 | Consultation ---
Consult Note Consult Note I was asked to eval the patient for electrolyte imbalance Patient admission had High K and Low Na ER: HPI: 77-year-old male with a history of advanced dementia, prior brain bleed, prostate cancer status post radiation, recently discharged on 09/15/2018 for aspiration pneumonia presents for shortness of breath. The patient's dementia makes it difficult to obtain any additional history. According to EMS, his skilled nursing noticed increased work of breathing earlier this morning which slowly deteriorated throughout the day. He was saturating 94 % on room air on EMS arrival though was significantly tachycardic. He was in mild respiratory distress according to EMS. No other reported change in his health since discharge according to EMS. No additional information at this time. On discharge on 09/15 it was noted that the patient was DNR. The forms EMS has with them signed on 09/09 indicate he is a full code. Will clarify with nursing facility. PMH: Prostate cancer status post radiation, Alzheimer dementia, anemia, hypokalemia, subdural hematoma PSH: Unknown Allergies: Unknown Hx Cancer: Yes Hx Gastrointestinal Problems: Yes Hx Neurological Problems: Yes Hx Dementia: Yes Hx Alzheimer's Disease: Yes Hx Seizures: Yes Hx Memory Loss: Yes patient examined in room 234 data reviewed Discussed with Janet the charge nurse Assessment/Plan Pneumonia / UTI Abnormal Lytes Anemia Dementia Prostate ca FTT ' On Eleazaro & Deborahn NS K supplenet GT feeding RN states that family requestin Hospice ! Will discuss with SAMUEL and Colby Willams MD Oct 03, 2018 10:01
[2018-10-03 10:34] LABS: ALANINE AMINOTRANSFERASE 29 U/L (12-78); ALBUMIN 1.5 G/DL (3.4-5.0); ALKALINE PHOSPHATASE 83 U/L (46-116); ASPARTATE AMINO TRANSFERASE 25 U/L (15-37); BILIRUBIN,DIRECT 0.2 MG/DL (0.0-0.3); BILIRUBIN,TOTAL 0.5 MG/DL (0.2-1.0); CHOLESTEROL 104 MG/DL (< 200); FERRITIN 735 NG/ML (8-388); GAMMA GLUTAMYL TRANSPEPTIDASE 35 U/L (5-85); HDL CHOLESTEROL 47 MG/DL (40-60); TRIGLYCERIDES 52 MG/DL (30-150)
--- NOTE | 2018-10-03 10:56 | GI Progress Note ---
Assessment/Plan Problems: (1) G tube feedings ICD Codes: Z93.1 - Gastrostomy status SNOMED: 617586783, 994091181, 171236615 (2) Severe malnutrition ICD Codes: E43 - Unspecified severe protein-calorie malnutrition SNOMED: 10375176 (3) Weakness ICD Codes: R53.1 - Weakness SNOMED: 35751342 (4) Dehydration ICD Codes: E86.0 - Dehydration SNOMED: 03420516 Status: unchanged Status Narrative Discussed with Dr. Alcocer. Assessment/Plan RECOMMENDATIONS: Start G-tube feedings per RD GT site care daily/prn PRN transfusions Reglan as needed for GI motility Follow labs electrolyte correction bowel regime The patient was seen and examined at bedside and all new and available data was reviewed in the patients chart. I agree with the above findings, impression and plan. (Patient seen earlier today. Signature stamp does not reflect patient encounter time.). - Yfn Alcocer MD Subjective Subjective limited Objective Last 24 Hour Vital Signs Date Time Temp Pulse Resp B/P (MAP) Pulse Ox O2 Delivery O2 Flow Rate FiO2 10/03/18 08:00 116 10/03/18 08:00 98.0 105 22 117/71 (86) 95 10/03/18 08:00 Nasal Cannula 4.0 10/03/18 08:00 4.0 10/03/18 04:00 Nasal Cannula 4.0 10/03/18 04:00 98.0 113 24 108/59 (75) 100 10/03/18 04:00 4.0 10/03/18 03:25 106 10/03/18 00:00 98.0 106 24 105/57 (73) 100 10/03/18 00:00 Nasal Cannula 4.0 10/02/18 23:23 109 10/02/18 20:00 4.0 10/02/18 20:00 97.6 108 19 93/57 (69) 100 10/02/18 20:00 Nasal Cannula 4.0 10/02/18 19:46 96 10/02/18 16:00 108 10/02/18 16:00 4.0 10/02/18 16:00 Nasal Cannula 4.0 10/02/18 16:00 97.6 106 19 115/69 (84) 100 106 10/02/18 12:00 96 10/02/18 12:00 4.0 10/02/18 12:00 98.9 76 19 103/58 (73) 99 10/02/18 12:00 Nasal Cannula 4.0 Intake and Output 10/02/18 10/03/18 19:00 07:00 Intake Total 1031.666 ml 377.50 ml Output Total 350 ml 1200 ml Balance 681.666 ml -822.50 ml Intake Oral 0 ml Free Water 100 ml IV Total 931.666 ml 237.50 ml Tube Feeding 140 ml Output Urine Total 350 ml 1200 ml # Bowel Movements 3 2 Laboratory Tests Test 10/03/18 03:48 White Blood Count 13.7 K/UL (4.8-10.8) #H Red Blood Count 4.06 M/UL (4.70-6.10) L Hemoglobin 11.9 G/DL (14.2-18.0) L Hematocrit 36.8 % (42.0-52.0) L Mean Corpuscular Volume 91 FL (80-99) Mean Corpuscular Hemoglobin 29.4 PG (27.0-31.0) Mean Corpuscular Hemoglobin Concent 32.4 G/DL (32.0-36.0) Red Cell Distribution Width 13.4 % (11.6-14.8) Platelet Count 267 K/UL (150-450) Mean Platelet Volume 7.0 FL (6.5-10.1) Neutrophils (%) (Auto) % (45.0-75.0) Lymphocytes (%) (Auto) % (20.0-45.0) Monocytes (%) (Auto) % (1.0-10.0) Eosinophils (%) (Auto) % (0.0-3.0) Basophils (%) (Auto) % (0.0-2.0) Sodium Level 135 MMOL/L (136-145) L Potassium Level 3.2 MMOL/L (3.5-5.1) L Chloride Level 103 MMOL/L (98-107) Carbon Dioxide Level 26 MMOL/L (21-32) Anion Gap 6 mmol/L (5-15) Blood Urea Nitrogen 8 mg/dL (7-18) Creatinine 0.7 MG/DL (0.55-1.30) Estimat Glomerular Filtration Rate mL/min (>60) Glucose Level 110 MG/DL (74-106) H Uric Acid 1.6 MG/DL (2.6-7.2) L Calcium Level 8.8 MG/DL (8.5-10.1) Phosphorus Level 2.0 MG/DL (2.5-4.9) L Magnesium Level 1.7 MG/DL (1.8-2.4) L Iron Level Pending Unsaturated Iron Binding Pending Ferritin 735 NG/ML (8-388) H Total Bilirubin 0.5 MG/DL (0.2-1.0) Direct Bilirubin 0.2 MG/DL (0.0-0.3) Gamma Glutamyl Transpeptidase 35 U/L (5-85) Aspartate Amino Transf (AST/SGOT) 25 U/L (15-37) Alanine Aminotransferase (ALT/SGPT) 29 U/L (12-78) Alkaline Phosphatase 83 U/L (46-116) C-Reactive Protein, Quantitative 37.8 mg/dL (0.00-0.90) H Total Protein 6.6 G/DL (6.4-8.2) Albumin 1.5 G/DL (3.4-5.0) L Triglycerides Level 52 MG/DL (30-150) Cholesterol Level 104 MG/DL (< 200) LDL Cholesterol 38 mg/dL (<100) HDL Cholesterol 47 MG/DL (40-60) Cholesterol/HDL Ratio 2.2 (3.3-4.4) L Prostate Specific Antigen 0.12 ng/mL (0.13-4.0) L Vitamin B12 Level Pending Folate Pending Thyroid Stimulating Hormone (TSH) 0.757 uiU/mL (0.358-3.740) Height (Feet): 5 Height (Inches): 8.00 Weight (Pounds): 110 General Appearance: WD/WN, no apparent distress, alert Cardiovascular: normal rate Respiratory/Chest: normal breath sounds, no respiratory distress Abdominal Exam: normal bowel sounds, non tender, soft, GT site - c/d/i Extremities: non-tender Constance Hawkins NP Oct 03, 2018 10:56
[2018-10-03 11:37] LABS: % IRON SATURATION 7 % (15-50); IRON 10 ug/dL (50-175); TOTAL IRON BINDING CAPACITY 151 ug/dL (250-450)
[2018-10-03 12:00] VITALS: BP 113/65
[2018-10-03] MEDS: Docusate 100mg/10ml Liq NG SCH ×2 (13:00→17:06)
[2018-10-03] MEDS ORDERED: Potassium Phosphate 20 MM in NS 275 ML IV ONE ×2 (14:30→18:30)
[2018-10-03 16:00] VITALS: BP 112/75
[2018-10-03] MEDS: D5NS 1,000 ML IV SCH ×2 (17:05→18:36)
[2018-10-03 20:00] VITALS: BP 98/64
[2018-10-04] VITALS: BP 103/65
[2018-10-04] MEDS: Piperacillin/Tazobactam 3.375 GM in NS 110 ML IVPB SCH ×4 (00:01→21:50)
[2018-10-04 04:00] VITALS: BP 107/56
[2018-10-04 06:38] LABS: HEMATOCRIT 33.5 % (42.0-52.0); HEMOGLOBIN 10.9 G/DL (14.2-18.0); MEAN CORPUSCULAR VOLUME 90 FL (80-99); PLATELET COUNT 220 K/UL (150-450); RED BLOOD COUNT 3.71 M/UL (4.70-6.10); RED CELL DISTRIBUTION WIDTH 12.8 % (11.6-14.8); WHITE BLOOD COUNT 9.7 K/UL (4.8-10.8)
[2018-10-04 07:02] LABS: ANION GAP 6 mmol/L (5-15); BLOOD UREA NITROGEN 8 mg/dL (7-18); CALCIUM 8.2 MG/DL (8.5-10.1); CARBON DIOXIDE 28 MMOL/L (21-32); CHLORIDE 107 MMOL/L (98-107); CREATININE 0.8 MG/DL (0.55-1.30); POTASSIUM 3.2 MMOL/L (3.5-5.1); SODIUM 141 MMOL/L (136-145)
[2018-10-04 07:53] LABS: PHOSPHORUS 2.3 MG/DL (2.5-4.9)
[2018-10-04 08:00] VITALS: BP 108/63
[2018-10-04] MEDS: levETIRAcetam 500mg/NS100ml 100 ML IVPB SCH ×2 (08:46→21:41)
[2018-10-04] MEDS: Heparin 5000 units/ml inj SUBQ SCH ×2 (08:48→21:42)
[2018-10-04] MEDS ORDERED: Vancomycin 750 MG in D5W 275 ML IVPB SCH (09:00)
[2018-10-04] MEDS ORDERED: Potassium Phosphate 30 MM in NS 275 ML IV ONE (10:00)
--- NOTE | 2018-10-04 11:01 | GI Progress Note ---
Assessment/Plan Problems: (1) G tube feedings ICD Codes: Z93.1 - Gastrostomy status SNOMED: 515393180, 673728500, 804547735 (2) Severe malnutrition ICD Codes: E43 - Unspecified severe protein-calorie malnutrition SNOMED: 79579786 (3) Weakness ICD Codes: R53.1 - Weakness SNOMED: 04425789 (4) Dehydration ICD Codes: E86.0 - Dehydration SNOMED: 68738619 Status: stable Status Narrative Discussed with Dr. Alcocer. Assessment/Plan RECOMMENDATIONS: Start G-tube feedings per RD GT site care daily/prn PRN transfusions Reglan as needed for GI motility Follow labs electrolyte correction hold venofer given elevated ferritin levels bowel regime The patient was seen and examined at bedside and all new and available data was reviewed in the patients chart. I agree with the above findings, impression and plan. (Patient seen earlier today. Signature stamp does not reflect patient encounter time.). - Yfn Alcocer MD Subjective Subjective limited Objective Last 24 Hour Vital Signs Date Time Temp Pulse Resp B/P (MAP) Pulse Ox O2 Delivery O2 Flow Rate FiO2 10/04/18 08:05 93 Nasal Cannula 2.0 28 10/04/18 04:00 98.4 91 20 107/56 (73) 98 10/04/18 04:00 Nasal Cannula 4.0 10/04/18 00:00 Nasal Cannula 4.0 10/04/18 00:00 98.1 88 20 103/65 (78) 99 10/03/18 21:00 Nasal Cannula 4.0 10/03/18 20:00 99.3 104 22 98/64 (75) 100 10/03/18 17:56 107 20 97 Nasal Cannula 97 10/03/18 16:00 105 10/03/18 16:00 97.9 109 27 112/75 (87) 100 10/03/18 16:00 Nasal Cannula 4.0 10/03/18 12:00 4.0 10/03/18 12:00 Nasal Cannula 4.0 10/03/18 12:00 97.9 104 26 113/65 (81) 94 10/03/18 12:00 108 Intake and Output 10/03/18 10/04/18 19:00 07:00 Intake Total 1848.054 ml 1520.0 ml Output Total 500 ml Balance 1348.054 ml 1520.0 ml Free Water 200 ml 150 ml IV Total 1198.054 ml 710.0 ml Tube Feeding 450 ml 660 ml Output Urine Total 500 ml # Bowel Movements 1 1 Laboratory Tests Test 10/04/18 05:35 White Blood Count 9.7 K/UL (4.8-10.8) Red Blood Count 3.71 M/UL (4.70-6.10) L Hemoglobin 10.9 G/DL (14.2-18.0) L Hematocrit 33.5 % (42.0-52.0) L Mean Corpuscular Volume 90 FL (80-99) Mean Corpuscular Hemoglobin 29.4 PG (27.0-31.0) Mean Corpuscular Hemoglobin Concent 32.6 G/DL (32.0-36.0) Red Cell Distribution Width 12.8 % (11.6-14.8) Platelet Count 220 K/UL (150-450) Mean Platelet Volume 7.4 FL (6.5-10.1) Neutrophils (%) (Auto) % (45.0-75.0) Lymphocytes (%) (Auto) % (20.0-45.0) Monocytes (%) (Auto) % (1.0-10.0) Eosinophils (%) (Auto) % (0.0-3.0) Basophils (%) (Auto) % (0.0-2.0) Differential Total Cells Counted 100 Neutrophils % (Manual) 91 % (45-75) H Lymphocytes % (Manual) 5 % (20-45) L Monocytes % (Manual) 2 % (1-10) Eosinophils % (Manual) 2 % (0-3) Basophils % (Manual) 0 % (0-2) Band Neutrophils 0 % (0-8) Platelet Estimate Adequate Platelet Morphology Normal Hypochromasia 1+ Sodium Level 141 MMOL/L (136-145) Potassium Level 3.2 MMOL/L (3.5-5.1) L Chloride Level 107 MMOL/L (98-107) Carbon Dioxide Level 28 MMOL/L (21-32) Anion Gap 6 mmol/L (5-15) Blood Urea Nitrogen 8 mg/dL (7-18) Creatinine 0.8 MG/DL (0.55-1.30) Estimat Glomerular Filtration Rate mL/min (>60) Glucose Level 130 MG/DL (74-106) H Calcium Level 8.2 MG/DL (8.5-10.1) L Phosphorus Level 2.3 MG/DL (2.5-4.9) L Magnesium Level 2.3 MG/DL (1.8-2.4) Height (Feet): 5 Height (Inches): 8.00 Weight (Pounds): 114 General Appearance: alert, thin Cardiovascular: normal rate Respiratory/Chest: normal breath sounds, no respiratory distress Abdominal Exam: soft Constance Hawkins NP Oct 04, 2018 11:01
--- NOTE | 2018-10-04 11:30 | Nephrology Progress Note ---
Assessment/Plan Problem List: (1) Electrolyte abnormality (2) Pneumonia (3) UTI (urinary tract infection) (4) Anemia (5) Severe malnutrition (6) G tube feedings (7) Altered mental status Assessment Pneumonia / UTI Abnormal Lytes Anemia Dementia Prostate ca FTT ' Plan On Vanco & Zosyn NS K supplenet GT feeding RN states that family requestin Hospice ! Will discuss with CM and SW Subjective ROS Limited/Unobtainable: No Constitutional: Reports: malaise Objective Objective Last 24 Hour Vital Signs Date Time Temp Pulse Resp B/P (MAP) Pulse Ox O2 Delivery O2 Flow Rate FiO2 10/04/18 08:05 93 Nasal Cannula 2.0 28 10/04/18 08:00 Nasal Cannula 4.0 10/04/18 08:00 98.2 115 19 108/63 (78) 97 10/04/18 04:00 98.4 91 20 107/56 (73) 98 10/04/18 04:00 Nasal Cannula 4.0 10/04/18 00:00 Nasal Cannula 4.0 10/04/18 00:00 98.1 88 20 103/65 (78) 99 10/03/18 21:00 Nasal Cannula 4.0 10/03/18 20:00 99.3 104 22 98/64 (75) 100 10/03/18 17:56 107 20 97 Nasal Cannula 97 10/03/18 16:00 105 10/03/18 16:00 97.9 109 27 112/75 (87) 100 10/03/18 16:00 Nasal Cannula 4.0 10/03/18 12:00 4.0 10/03/18 12:00 Nasal Cannula 4.0 10/03/18 12:00 97.9 104 26 113/65 (81) 94 10/03/18 12:00 108 Intake and Output 10/03/18 10/04/18 19:00 07:00 Intake Total 1848.054 ml 1520.0 ml Output Total 500 ml Balance 1348.054 ml 1520.0 ml Free Water 200 ml 150 ml IV Total 1198.054 ml 710.0 ml Tube Feeding 450 ml 660 ml Output Urine Total 500 ml # Bowel Movements 1 1 Laboratory Tests 10/04/18 05:35: White Blood Count 9.7, Red Blood Count 3.71L, Hemoglobin 10.9L, Hematocrit 33.5L , Mean Corpuscular Volume 90, Mean Corpuscular Hemoglobin 29.4, Mean Corpuscular Hemoglobin Concent 32.6, Red Cell Distribution Width 12.8, Platelet Count 220, Mean Platelet Volume 7.4, Neutrophils (%) (Auto) , Lymphocytes (%) ( Auto) , Monocytes (%) (Auto) , Eosinophils (%) (Auto) , Basophils (%) (Auto) , Differential Total Cells Counted 100, Neutrophils % (Manual) 91H, Lymphocytes % (Manual) 5L, Monocytes % (Manual) 2, Eosinophils % (Manual) 2, Basophils % ( Manual) 0, Band Neutrophils 0, Platelet Estimate Adequate, Platelet Morphology Normal, Hypochromasia 1+, Sodium Level 141, Potassium Level 3.2L, Chloride Level 107, Carbon Dioxide Level 28, Anion Gap 6, Blood Urea Nitrogen 8, Creatinine 0.8, Estimat Glomerular Filtration Rate , Glucose Level 130H, Calcium Level 8.2L, Phosphorus Level 2.3L, Magnesium Level 2.3 Height (Feet): 5 Height (Inches): 8.00 Weight (Pounds): 114 General Appearance: no apparent distress Cardiovascular: tachycardia Respiratory/Chest: decreased breath sounds Abdomen: soft Colby Guerra MD Oct 04, 2018 11:30
[2018-10-04 12:00] VITALS: BP 104/64
[2018-10-04] MEDS: D5NS 1,000 ML IV SCH (14:36)
[2018-10-04] MEDS ORDERED: NS 275ml ONE (15:56)
[2018-10-04] MEDS ORDERED: 1/2 NS 1000ml IV ONE (15:56)
[2018-10-04] MEDS ORDERED: D5NS 1000ml IV ONE (15:56)
[2018-10-04 16:00] VITALS: BP 110/57
[2018-10-04 20:00] VITALS: BP 103/62
--- NOTE | 2018-10-04 20:42 | Urology Progress Note ---
Assessment/Plan Status: stable Assessment/Plan: prostate ca hx/XRT BPH hx urinary incontinence probable neurogenic bladder UTI hematuria proteinuria monitor clinically abx as ordered add flomax cysto later if feasible d/w pt's thanks, Subjective Allergies: Coded Allergies: NO KNOWN DRUG ALLERGIES (Unverified Allergy, Unknown, 03/22/14) Subjective all noted, pt known to me, hx of BPH/LUTS, prostate ca, UTI pt's asked me to evaluate pt PMH/chart all noted Objective Last 24 Hour Vital Signs Date Time Temp Pulse Resp B/P (MAP) Pulse Ox O2 Delivery O2 Flow Rate FiO2 10/04/18 16:00 Nasal Cannula 4.0 10/04/18 16:00 98.4 99 19 110/57 (74) 97 10/04/18 12:00 99.7 117 20 104/64 (77) 98 10/04/18 12:00 Nasal Cannula 4.0 10/04/18 08:05 93 Nasal Cannula 2.0 28 10/04/18 08:00 Nasal Cannula 4.0 10/04/18 08:00 98.2 115 19 108/63 (78) 97 10/04/18 04:00 98.4 91 20 107/56 (73) 98 10/04/18 04:00 Nasal Cannula 4.0 10/04/18 00:00 Nasal Cannula 4.0 10/04/18 00:00 98.1 88 20 103/65 (78) 99 10/03/18 21:00 Nasal Cannula 4.0 Intake and Output 10/03/18 10/04/18 18:59 06:59 Intake Total 1890.554 ml 1520.0 ml Output Total 1700 ml Balance 190.554 ml 1520.0 ml Free Water 200 ml 150 ml IV Total 1275.554 ml 710.0 ml Tube Feeding 415 ml 660 ml Output Urine Total 1700 ml # Bowel Movements 3 1 Microbiology Date/Time Source Procedure Growth Status 10/01/18 16:00 Blood Blood Culture - Preliminary NO GROWTH AFTER 48 HOURS Resulted 10/01/18 16:00 Nasal Nares MRSA Culture - Final NO METHICILLIN RESISTANT STAPH AUREUS... Complete 10/01/18 16:00 Urine,Clean Catch Urine Culture - Final Pseudomonas Aeruginosa Complete 10/01/18 16:00 Rectum - Final NO CARBAPENEM-RESISTANT ENTEROBACTERI... Complete Current Medications Medications (Trade) Dose Ordered Sig/Alirio Route PRN Reason Start Time Stop Time Status Last Admin Dose Admin Acetaminophen (Tylenol) 650 mg Q6H PRN ORAL Mild Pain/Temp > 100.5 10/04/18 20:45 11/03/18 20:44 Dextrose/Sodium Chloride 1,000 ml @ 50 mls/hr Q20H IV 10/03/18 18:36 11/02/18 18:35 10/04/18 14:36 Heparin Sodium (Porcine) (Heparin 5000 units/ml) 5,000 units EVERY 12 HOURS SUBQ 10/03/18 21:00 11/01/18 08:59 10/04/18 08:48 Lansoprazole (Prevacid) 30 mg BID GT 10/04/18 09:00 11/02/18 10:29 10/04/18 18:19 Levetiracetam 100 ml @ 400 mls/hr Q12HR IVPB 10/03/18 21:00 10/31/18 23:29 10/04/18 08:46 Piperacillin Sod/ Tazobactam Sod 3.375 gm/Sodium Chloride 110 ml @ 27.5 mls/hr Q8H IVPB 10/03/18 22:00 10/09/18 05:59 10/04/18 15:22 Vancomycin HCl (Vanco rx to dose) 1 ea DAILY PRN [facility] pharmacy to dose 10/04/18 09:00 10/31/18 23:29 Vancomycin HCl 750 mg/Dextrose 275 ml @ 183.333 mls/hr Q24H IVPB 10/04/18 09:00 10/07/18 08:59 10/04/18 08:46 Laboratory Tests 10/04/18 05:35: White Blood Count 9.7, Red Blood Count 3.71L, Hemoglobin 10.9L, Hematocrit 33.5L , Mean Corpuscular Volume 90, Mean Corpuscular Hemoglobin 29.4, Mean Corpuscular Hemoglobin Concent 32.6, Red Cell Distribution Width 12.8, Platelet Count 220, Mean Platelet Volume 7.4, Neutrophils (%) (Auto) , Lymphocytes (%) ( Auto) , Monocytes (%) (Auto) , Eosinophils (%) (Auto) , Basophils (%) (Auto) , Differential Total Cells Counted 100, Neutrophils % (Manual) 91H, Lymphocytes % (Manual) 5L, Monocytes % (Manual) 2, Eosinophils % (Manual) 2, Basophils % ( Manual) 0, Band Neutrophils 0, Platelet Estimate Adequate, Platelet Morphology Normal, Hypochromasia 1+, Sodium Level 141, Potassium Level 3.2L, Chloride Level 107, Carbon Dioxide Level 28, Anion Gap 6, Blood Urea Nitrogen 8, Creatinine 0.8, Estimat Glomerular Filtration Rate , Glucose Level 130H, Calcium Level 8.2L, Phosphorus Level 2.3L, Magnesium Level 2.3 Height (Feet): 5 Height (Inches): 8.00 Weight (Pounds): 114 Objective exam stable UA and Imaging noted Haresh Burton MD Oct 04, 2018 20:42
[2018-10-04] MEDS: Tamsulosin 0.4mg cap ORAL SCH (21:44)
[2018-10-05] VITALS: BP 102/61
[2018-10-05] MEDS: Piperacillin/Tazobactam 3.375 GM in NS 110 ML IVPB SCH ×4 (02:07→21:25)
[2018-10-05 04:00] VITALS: BP 109/61
[2018-10-05 08:00] VITALS: BP 99/57
--- NOTE | 2018-10-05 08:37 | Urology Progress Note ---
Assessment/Plan Status: stable Assessment/Plan: prostate ca hx/XRT BPH hx urinary incontinence probable neurogenic bladder UTI hematuria proteinuria monitor clinically abx as ordered add flomax added cysto later if feasible f/u on blood cx Subjective Allergies: Coded Allergies: NO KNOWN DRUG ALLERGIES (Unverified Allergy, Unknown, 03/22/14) Subjective all noted, incontinent Objective Last 24 Hour Vital Signs Date Time Temp Pulse Resp B/P (MAP) Pulse Ox O2 Delivery O2 Flow Rate FiO2 10/05/18 04:00 97.7 90 17 109/61 (77) 98 10/05/18 04:00 Nasal Cannula 4.0 10/05/18 00:00 Nasal Cannula 4.0 10/05/18 00:00 98.7 90 19 102/61 (75) 100 10/04/18 20:00 Nasal Cannula 4.0 10/04/18 20:00 99.1 98 18 103/62 (76) 100 10/04/18 16:00 Nasal Cannula 4.0 10/04/18 16:00 98.4 99 19 110/57 (74) 97 10/04/18 12:00 99.7 117 20 104/64 (77) 98 10/04/18 12:00 Nasal Cannula 4.0 Intake and Output 10/04/18 10/05/18 19:00 07:00 Intake Total 1819.513 ml 1047.5 ml Output Total 3 ml Balance 1819.513 ml 1044.5 ml Free Water 100 ml 150 ml IV Total 1059.513 ml 237.5 ml Tube Feeding 660 ml 660 ml Output Urine Total 3 ml # Bowel Movements 2 Microbiology Date/Time Source Procedure Growth Status 10/01/18 16:00 Blood Blood Culture - Preliminary NO GROWTH AFTER 72 HOURS Resulted 10/01/18 16:00 Nasal Nares MRSA Culture - Final NO METHICILLIN RESISTANT STAPH AUREUS... Complete 10/01/18 16:00 Urine,Clean Catch Urine Culture - Final Pseudomonas Aeruginosa Complete 10/01/18 16:00 Rectum - Final NO CARBAPENEM-RESISTANT ENTEROBACTERI... Complete Current Medications Medications (Trade) Dose Ordered Sig/Alirio Route PRN Reason Start Time Stop Time Status Last Admin Dose Admin Acetaminophen (Tylenol) 650 mg Q6H PRN ORAL Mild Pain/Temp > 100.5 10/04/18 20:45 11/03/18 20:44 10/04/18 21:43 Dextrose/Sodium Chloride 1,000 ml @ 50 mls/hr Q20H IV 10/03/18 18:36 11/02/18 18:35 10/04/18 14:36 Heparin Sodium (Porcine) (Heparin 5000 units/ml) 5,000 units EVERY 12 HOURS SUBQ 10/03/18 21:00 11/01/18 08:59 10/04/18 21:42 Lansoprazole (Prevacid) 30 mg BID GT 10/04/18 09:00 11/02/18 10:29 10/04/18 18:19 Levetiracetam 100 ml @ 400 mls/hr Q12HR IVPB 10/03/18 21:00 10/31/18 23:29 10/04/18 21:41 Piperacillin Sod/ Tazobactam Sod 3.375 gm/Sodium Chloride 110 ml @ 27.5 mls/hr Q8H IVPB 10/03/18 22:00 10/09/18 05:59 10/05/18 02:07 Tamsulosin HCl (Flomax) 0.4 mg BEDTIME ORAL 10/04/18 21:00 11/03/18 20:59 10/04/18 21:44 Vancomycin HCl (Vanco rx to dose) 1 ea DAILY [facility]N [facility] to dose 10/04/18 09:00 10/31/18 23:29 Vancomycin HCl 750 mg/Dextrose 275 ml @ 183.333 mls/hr Q24H IVPB 10/04/18 09:00 10/07/18 08:59 10/04/18 08:46 Height (Feet): 5 Height (Inches): 8.00 Weight (Pounds): 114 Objective exam stable UA and Imaging noted Haresh Burton MD Oct 05, 2018 08:37
[2018-10-05] MEDS ORDERED: Vancomycin 1gm/D5W 275ml IVPB SCH ×2 (10:00)
[2018-10-05] MEDS: levETIRAcetam 500mg/NS100ml 100 ML IVPB SCH ×2 (10:09→20:53)
[2018-10-05] MEDS: Heparin 5000 units/ml inj SUBQ SCH ×2 (10:16→20:54)
--- NOTE | 2018-10-05 10:30 | GI Progress Note ---
Assessment/Plan Problems: (1) G tube feedings ICD Codes: Z93.1 - Gastrostomy status SNOMED: 505348766, 508683069, 366019011 (2) Severe malnutrition ICD Codes: E43 - Unspecified severe protein-calorie malnutrition SNOMED: 25738275 (3) Weakness ICD Codes: R53.1 - Weakness SNOMED: 51595190 (4) Dehydration ICD Codes: E86.0 - Dehydration SNOMED: 53006125 Status: stable Status Narrative Discussed with Dr. Alcocer. Assessment/Plan RECOMMENDATIONS: G-tube feedings per RD GT site care daily/prn PRN transfusions Reglan as needed for GI motility Follow labs electrolyte correction hold venofer given elevated ferritin levels bowel regime The patient was seen and examined at bedside and all new and available data was reviewed in the patients chart. I agree with the above findings, impression and plan. (Patient seen earlier today. Signature stamp does not reflect patient encounter time.). - Yfn Alcocer MD Subjective Subjective limited Objective Last 24 Hour Vital Signs Date Time Temp Pulse Resp B/P (MAP) Pulse Ox O2 Delivery O2 Flow Rate FiO2 10/05/18 08:00 99.4 87 18 99/57 (71) 95 10/05/18 04:00 97.7 90 17 109/61 (77) 98 10/05/18 04:00 Nasal Cannula 4.0 10/05/18 00:00 Nasal Cannula 4.0 10/05/18 00:00 98.7 90 19 102/61 (75) 100 10/04/18 20:00 Nasal Cannula 4.0 10/04/18 20:00 99.1 98 18 103/62 (76) 100 10/04/18 16:00 Nasal Cannula 4.0 10/04/18 16:00 98.4 99 19 110/57 (74) 97 10/04/18 12:00 99.7 117 20 104/64 (77) 98 10/04/18 12:00 Nasal Cannula 4.0 Intake and Output 10/04/18 10/05/18 19:00 07:00 Intake Total 1819.513 ml 1047.5 ml Output Total 3 ml Balance 1819.513 ml 1044.5 ml Free Water 100 ml 150 ml IV Total 1059.513 ml 237.5 ml Tube Feeding 660 ml 660 ml Output Urine Total 3 ml # Bowel Movements 2 Laboratory Tests Test 10/05/18 08:00 Vancomycin Level Trough 2.8 ug/mL (5.0-12.0) L Height (Feet): 5 Height (Inches): 8.00 Weight (Pounds): 114 General Appearance: WD/WN, no apparent distress, alert Cardiovascular: normal rate Respiratory/Chest: normal breath sounds, no respiratory distress Abdominal Exam: normal bowel sounds, non tender, soft, GT site Extremities: non-tender Constance Hawkins NP Oct 05, 2018 10:30
[2018-10-05] MEDS: D5NS 1,000 ML IV SCH (10:36)
[2018-10-05 12:00] VITALS: BP 101/58
--- NOTE | 2018-10-05 13:03 | Nephrology Progress Note ---
Assessment/Plan Problem List: (1) UTI (urinary tract infection) Assessment: pseudomonas (2) Pneumonia (3) Electrolyte abnormality (4) Anemia (5) Severe malnutrition (6) G tube feedings (7) Altered mental status Assessment Pneumonia / UTI Abnormal Lytes Anemia Dementia Prostate ca FTT ' Plan no new labs today- check labs in am check CXR On Zosyn will DC Vanco NS K supplement as needed GT feeding RN states that family requestin Hospice ! Will discuss with CM and SW Subjective ROS Limited/Unobtainable: No Constitutional: Reports: malaise, weakness Objective Objective Last 24 Hour Vital Signs Date Time Temp Pulse Resp B/P (MAP) Pulse Ox O2 Delivery O2 Flow Rate FiO2 10/05/18 09:21 94 Nasal Cannula 2.0 28 10/05/18 08:00 99.4 87 18 99/57 (71) 95 10/05/18 04:00 97.7 90 17 109/61 (77) 98 10/05/18 04:00 Nasal Cannula 4.0 10/05/18 00:00 Nasal Cannula 4.0 10/05/18 00:00 98.7 90 19 102/61 (75) 100 10/04/18 20:00 Nasal Cannula 4.0 10/04/18 20:00 99.1 98 18 103/62 (76) 100 10/04/18 16:00 Nasal Cannula 4.0 10/04/18 16:00 98.4 99 19 110/57 (74) 97 Intake and Output 10/04/18 10/05/18 18:59 06:59 Intake Total 1819.513 ml 1047.5 ml Output Total 3 ml Balance 1819.513 ml 1044.5 ml Free Water 100 ml 150 ml IV Total 1059.513 ml 237.5 ml Tube Feeding 660 ml 660 ml Output Urine Total 3 ml # Bowel Movements 2 Laboratory Tests 10/05/18 08:00: Vancomycin Level Trough 2.8L Height (Feet): 5 Height (Inches): 8.00 Weight (Pounds): 114 General Appearance: no apparent distress, lethargic Objective no change Colby Guerra MD Oct 05, 2018 13:03
--- NOTE | 2018-10-05 14:06 | Diagnostic Imaging Report ---
Indication: Dyspnea Comparison: 10/01/2018 A single view chest radiograph was obtained. Findings: Patchy infiltrates are demonstrated perihilar distribution with the increasing infiltrate in the right midlung compared to last study. Differential diagnosis includes heterogeneous pulmonary edema, which could also be superimposed. Lung volumes are low. Heart size is stable. IMPRESSION: Bilateral increasing infiltrates and/or patchy pulmonary edema. Correlate clinically.
[2018-10-05 16:00] VITALS: BP 120/63
--- NOTE | 2018-10-05 19:36 | Pulmonology Progress Note ---
Assessment/Plan Assessment/Plan Pulmonary Consultation Note HPI: Patient is a 77-year-old male with a history of advanced dementia, prior intracranial bleed, previous seizures, prostate cancer s/p previous radiation therapy, recently discharged on 09/15/2018 after admission for aspiration pneumonia presents for shortness of breath. Admitted with ncreased shortness of breath, noted to have Pneumonia. Currently DNAR/DNI status. Antibiotics have been reduced from Zosyn/Vanco to Zosyn PMH: Prostate cancer status post radiation, Alzheimer dementia, anemia, hypokalemia, subdural hematoma Allergies: NO KNOWN DRUG ALLERGIES All Other Systems: limited - Due to dementia Physical Exam Vital Signs Noted General: Awake, confused, mild respiratory distress, cachectic and frail- appearing HEENT: NC/AT. EOMI. sunken eyes. Edentulous, dry mucous membranes Neck: Supple, trachea midline Chest Wall: No tenderness, no deformity Cardiovascular: Tachycardic. S1 and S2 normal. No murmur appreciated Resp: Occasional rhonchi Abdomen: Abdomen is soft, nondistended. Nontender Skin: Intact. No abrasions, laceration or rash over the exposed skin MSK: Atrophy of the upper and lower extremities. No lower extremity edema Neuro: Awake, Movements of all extremities, no seizures Impression: Pneumonia Dementia Prior intracranial bleed Previous seizures Prostate cancer s/p previous radiation therapy UTI (urinary tract infection) Plan Continue antibiotics per ID HHN Q4 CPT Aspiration precautions DNAR/DNI status EKG: Rate: tachycardiac Rhythm: NSR ST Segments: no acute changes Other Impression Left axis deviation Chest X-Ray: Bilateral infiltrates concerning for pneumonia Subjective ROS Limited/Unobtainable: No Allergies: Coded Allergies: NO KNOWN DRUG ALLERGIES (Unverified Allergy, Unknown, 03/22/14) Objective Last 24 Hour Vital Signs Date Time Temp Pulse Resp B/P (MAP) Pulse Ox O2 Delivery O2 Flow Rate FiO2 10/05/18 16:00 99.1 93 20 120/63 (82) 98 10/05/18 16:00 Nasal Cannula 2.0 10/05/18 12:00 97.8 90 18 101/58 (72) 97 10/05/18 12:00 Nasal Cannula 4.0 10/05/18 09:21 94 Nasal Cannula 2.0 28 10/05/18 08:00 Nasal Cannula 4.0 10/05/18 08:00 99.4 87 18 99/57 (71) 95 10/05/18 04:00 97.7 90 17 109/61 (77) 98 10/05/18 04:00 Nasal Cannula 4.0 10/05/18 00:00 Nasal Cannula 4.0 10/05/18 00:00 98.7 90 19 102/61 (75) 100 10/04/18 20:00 Nasal Cannula 4.0 10/04/18 20:00 99.1 98 18 103/62 (76) 100 Intake and Output 10/04/18 10/05/18 19:00 07:00 Intake Total 1819.513 ml 1047.5 ml Output Total 3 ml Balance 1819.513 ml 1044.5 ml Free Water 100 ml 150 ml IV Total 1059.513 ml 237.5 ml Tube Feeding 660 ml 660 ml Output Urine Total 3 ml # Bowel Movements 2 Laboratory Tests 10/05/18 08:00: Vancomycin Level Trough 2.8L Current Medications Medications (Trade) Dose Ordered Sig/Alirio Route PRN Reason Start Time Stop Time Status Last Admin Dose Admin Acetaminophen (Tylenol) 650 mg Q6H PRN ORAL Mild Pain/Temp > 100.5 10/04/18 20:45 11/03/18 20:44 10/04/18 21:43 Albuterol/ Ipratropium (Albuterol/ Ipratropium) 3 ml Q4HRT HHN 10/05/18 19:00 10/10/18 18:59 Dextrose/Sodium Chloride 1,000 ml @ 50 mls/hr Q20H IV 10/03/18 18:36 11/02/18 18:35 10/04/18 14:36 Heparin Sodium (Porcine) (Heparin 5000 units/ml) 5,000 units EVERY 12 HOURS SUBQ 10/03/18 21:00 11/01/18 08:59 10/05/18 10:16 Lansoprazole (Prevacid) 30 mg BID GT 10/04/18 09:00 11/02/18 10:29 10/05/18 17:27 Levetiracetam 100 ml @ 400 mls/hr Q12HR IVPB 10/03/18 21:00 10/31/18 23:29 10/05/18 10:09 Piperacillin Sod/ Tazobactam Sod 3.375 gm/Sodium Chloride 110 ml @ 27.5 mls/hr Q8H IVPB 10/03/18 22:00 10/09/18 05:59 10/05/18 15:37 Tamsulosin HCl (Flomax) 0.4 mg BEDTIME ORAL 10/04/18 21:00 11/03/18 20:59 10/04/18 21:44 Jaleel Denise MD Oct 05, 2018 19:36
[2018-10-05] MEDS: Albuterol/Ipratropium 3ml neb HHN SCH ×2 (19:49→22:17)
[2018-10-05 20:00] VITALS: BP 100/63
[2018-10-05] MEDS: Tamsulosin 0.4mg cap ORAL SCH (20:53)
[2018-10-06] VITALS: BP 103/57
[2018-10-06] MEDS: Albuterol/Ipratropium 3ml neb HHN SCH ×5 (03:40→20:12)
[2018-10-06 04:00] VITALS: BP 122/74
[2018-10-06] MEDS: Piperacillin/Tazobactam 3.375 GM in NS 110 ML IVPB SCH ×3 (04:46→22:00)
[2018-10-06] MEDS: D5NS 1,000 ML IV SCH (06:36)
[2018-10-06 07:36] LABS: BASOPHILS % (AUTO) 0.6 % (0.0-2.0); HEMATOCRIT 35.4 % (42.0-52.0); HEMOGLOBIN 11.3 G/DL (14.2-18.0); LYMPHOCYTES % (AUTO) 14.5 % (20.0-45.0); MEAN CORPUSCULAR VOLUME 93 FL (80-99); MONOCYTES % (AUTO) 11.5 % (1.0-10.0); NEUTROPHILS % (AUTO) 72.5 % (45.0-75.0); PLATELET COUNT 212 K/UL (150-450); RED BLOOD COUNT 3.82 M/UL (4.70-6.10); RED CELL DISTRIBUTION WIDTH 13.3 % (11.6-14.8); WHITE BLOOD COUNT 8.8 K/UL (4.8-10.8)
[2018-10-06 08:00] VITALS: BP 99/69
[2018-10-06 08:02] LABS: ALANINE AMINOTRANSFERASE 24 U/L (12-78); ALBUMIN 1.3 G/DL (3.4-5.0); ALBUMIN/GLOBULIN RATIO 0.3 (1.0-2.7); ALKALINE PHOSPHATASE 89 U/L (46-116); ANION GAP 3 mmol/L (5-15); ASPARTATE AMINO TRANSFERASE 29 U/L (15-37); BILIRUBIN,TOTAL 0.4 MG/DL (0.2-1.0); BLOOD UREA NITROGEN 7 mg/dL (7-18); CALCIUM 8.3 MG/DL (8.5-10.1); CARBON DIOXIDE 26 MMOL/L (21-32); CHLORIDE 106 MMOL/L (98-107); CREATININE 0.6 MG/DL (0.55-1.30); PHOSPHORUS 2.9 MG/DL (2.5-4.9); POTASSIUM 3.6 MMOL/L (3.5-5.1); SODIUM 135 MMOL/L (136-145)
--- NOTE | 2018-10-06 08:05 | Urology Progress Note ---
Assessment/Plan Status: stable Assessment/Plan: prostate ca hx/XRT BPH hx urinary incontinence probable neurogenic bladder UTI hematuria proteinuria monitor clinically abx as ordered flomax added cysto later if feasible f/u on blood cx Subjective Allergies: Coded Allergies: NO KNOWN DRUG ALLERGIES (Unverified Allergy, Unknown, 03/22/14) Subjective all noted, incontinent Objective Last 24 Hour Vital Signs Date Time Temp Pulse Resp B/P (MAP) Pulse Ox O2 Delivery O2 Flow Rate FiO2 10/06/18 07:25 91 17 98 Nasal Cannula 2.0 28 10/06/18 07:16 95 Nasal Cannula 2.0 28 10/06/18 07:16 92 17 95 Nasal Cannula 2.0 28 10/06/18 04:00 98.1 103 18 122/74 (90) 97 10/06/18 03:49 107 18 98 Nasal Cannula 2.0 28 10/06/18 03:40 100 20 95 Nasal Cannula 2.0 28 10/06/18 00:00 98.6 105 17 103/57 (72) 94 10/05/18 22:29 104 20 95 Nasal Cannula 2.0 28 10/05/18 22:17 100 20 95 Nasal Cannula 2.0 28 10/05/18 20:40 Nasal Cannula 2.0 10/05/18 20:02 104 18 94 Nasal Cannula 2.0 28 10/05/18 20:00 100.1 109 20 100/63 (75) 98 10/05/18 19:49 92 20 98 Nasal Cannula 2.0 28 10/05/18 19:49 97 Nasal Cannula 2.0 10/05/18 19:49 92 20 97 Nasal Cannula 2.0 28 10/05/18 16:00 99.1 93 20 120/63 (82) 98 10/05/18 16:00 Nasal Cannula 2.0 10/05/18 12:00 97.8 90 18 101/58 (72) 97 10/05/18 12:00 Nasal Cannula 4.0 10/05/18 09:21 94 Nasal Cannula 2.0 28 Intake and Output 10/05/18 10/06/18 19:00 07:00 Intake Total 105 ml 1180.0 ml Output Total 200 ml Balance -95 ml 1180.0 ml Free Water 60 ml IV Total 50 ml 515.0 ml Tube Feeding 55 ml 605 ml Output Urine Total 200 ml # Voids 4 # Bowel Movements 1 Microbiology Date/Time Source Procedure Growth Status 10/01/18 16:00 Blood Blood Culture - Preliminary NO GROWTH AFTER 4 DAYS Resulted 10/01/18 16:00 Nasal Nares MRSA Culture - Final NO METHICILLIN RESISTANT STAPH AUREUS... Complete 10/01/18 16:00 Urine,Clean Catch Urine Culture - Final Pseudomonas Aeruginosa Complete 10/01/18 16:00 Rectum - Final NO CARBAPENEM-RESISTANT ENTEROBACTERI... Complete Current Medications Medications (Trade) Dose Ordered Sig/Alirio Route PRN Reason Start Time Stop Time Status Last Admin Dose Admin Acetaminophen (Tylenol) 650 mg Q6H PRN ORAL Mild Pain/Temp > 100.5 10/04/18 20:45 11/03/18 20:44 10/04/18 21:43 Albuterol/ Ipratropium (Albuterol/ Ipratropium) 3 ml Q4HRT HHN 10/05/18 19:00 10/10/18 18:59 10/06/18 07:16 Dextrose/Sodium Chloride 1,000 ml @ 50 mls/hr Q20H IV 10/03/18 18:36 11/02/18 18:35 10/04/18 14:36 Heparin Sodium (Porcine) (Heparin 5000 units/ml) 5,000 units EVERY 12 HOURS SUBQ 10/03/18 21:00 11/01/18 08:59 10/05/18 20:54 Lansoprazole (Prevacid) 30 mg BID GT 10/04/18 09:00 11/02/18 10:29 10/05/18 17:27 Levetiracetam 100 ml @ 400 mls/hr Q12HR IVPB 10/03/18 21:00 10/31/18 23:29 10/05/18 20:53 Piperacillin Sod/ Tazobactam Sod 3.375 gm/Sodium Chloride 110 ml @ 27.5 mls/hr Q8H IVPB 10/03/18 22:00 10/09/18 05:59 10/06/18 04:46 Tamsulosin HCl (Flomax) 0.4 mg BEDTIME ORAL 10/04/18 21:00 11/03/18 20:59 10/04/18 21:44 Laboratory Tests 10/06/18 06:48: White Blood Count 8.8, Red Blood Count 3.82L, Hemoglobin 11.3L, Hematocrit 35.4L , Mean Corpuscular Volume 93, Mean Corpuscular Hemoglobin 29.5, Mean Corpuscular Hemoglobin Concent 31.9L, Red Cell Distribution Width 13.3, Platelet Count 212, Mean Platelet Volume 7.6, Neutrophils (%) (Auto) 72.5, Lymphocytes (%) (Auto) 14.5L, Monocytes (%) (Auto) 11.5H, Eosinophils (%) (Auto ) 1.0, Basophils (%) (Auto) 0.6, Sodium Level [Pending], Potassium Level [ Pending], Chloride Level [Pending], Carbon Dioxide Level [Pending], Blood Urea Nitrogen [Pending], Creatinine [Pending], Estimat Glomerular Filtration Rate [ Pending], Glucose Level [Pending], Uric Acid [Pending], Calcium Level [Pending] , Phosphorus Level [Pending], Magnesium Level [Pending], Total Bilirubin [ Pending], Aspartate Amino Transf (AST/SGOT) [Pending], Alanine Aminotransferase (ALT/SGPT) [Pending], Alkaline Phosphatase [Pending], C-Reactive Protein, Quantitative [Pending], Pro-B-Type Natriuretic Peptide [Pending], Total Protein [Pending], Albumin [Pending], Globulin [Pending] Height (Feet): 5 Height (Inches): 8.00 Weight (Pounds): 114 Objective exam stable UA and Imaging noted Haresh Burton MD Oct 06, 2018 08:05
[2018-10-06] MEDS: levETIRAcetam 500mg/NS100ml 100 ML IVPB SCH ×2 (09:20→21:45)
[2018-10-06] MEDS: Heparin 5000 units/ml inj SUBQ SCH ×2 (09:26→21:09)
--- NOTE | 2018-10-06 11:43 | GI Progress Note ---
Assessment/Plan Problems: (1) G tube feedings ICD Codes: Z93.1 - Gastrostomy status SNOMED: 696507353, 803533854, 107129141 (2) Severe malnutrition ICD Codes: E43 - Unspecified severe protein-calorie malnutrition SNOMED: 50581456 (3) Weakness ICD Codes: R53.1 - Weakness SNOMED: 65136900 (4) Dehydration ICD Codes: E86.0 - Dehydration SNOMED: 59776390 Status: unchanged Status Narrative Discussed with Dr. Alcocer. Assessment/Plan RECOMMENDATIONS: G-tube feedings per RD GT site care daily/prn PRN transfusions Reglan as needed for GI motility Follow labs electrolyte correction hold venofer given elevated ferritin levels bowel regime The patient was seen and examined at bedside and all new and available data was reviewed in the patients chart. I agree with the above findings, impression and plan. (Patient seen earlier today. Signature stamp does not reflect patient encounter time.). - Yfn Alcocer MD Subjective Subjective limited Objective Last 24 Hour Vital Signs Date Time Temp Pulse Resp B/P (MAP) Pulse Ox O2 Delivery O2 Flow Rate FiO2 10/06/18 11:01 89 18 98 Nasal Cannula 2.0 10/06/18 10:53 89 19 97 Nasal Cannula 2.0 10/06/18 08:00 98.0 102 20 99/69 (79) 97 10/06/18 07:25 91 17 98 Nasal Cannula 2.0 28 10/06/18 07:16 95 Nasal Cannula 2.0 28 10/06/18 07:16 92 17 95 Nasal Cannula 2.0 10/06/18 04:00 98.1 103 18 122/74 (90) 97 10/06/18 03:49 107 18 98 Nasal Cannula 2.0 10/06/18 03:40 100 20 95 Nasal Cannula 2.0 10/06/18 00:00 98.6 105 17 103/57 (72) 94 10/05/18 22:29 104 20 95 Nasal Cannula 2.0 28 10/05/18 22:17 100 20 95 Nasal Cannula 2.0 28 10/05/18 20:40 Nasal Cannula 2.0 10/05/18 20:02 104 18 94 Nasal Cannula 2.0 10/05/18 20:00 100.1 109 20 100/63 (75) 98 10/05/18 19:49 92 20 98 Nasal Cannula 2.0 28 10/05/18 19:49 97 Nasal Cannula 2.0 28 10/05/18 19:49 92 20 97 Nasal Cannula 2.0 28 10/05/18 16:00 99.1 93 20 120/63 (82) 98 10/05/18 16:00 Nasal Cannula 2.0 10/05/18 12:00 97.8 90 18 101/58 (72) 97 10/05/18 12:00 Nasal Cannula 4.0 Intake and Output 10/05/18 10/06/18 19:00 07:00 Intake Total 105 ml 1180.0 ml Output Total 200 ml Balance -95 ml 1180.0 ml Free Water 60 ml IV Total 50 ml 515.0 ml Tube Feeding 55 ml 605 ml Output Urine Total 200 ml # Voids 4 # Bowel Movements 1 Laboratory Tests Test 10/06/18 06:48 White Blood Count 8.8 K/UL (4.8-10.8) Red Blood Count 3.82 M/UL (4.70-6.10) L Hemoglobin 11.3 G/DL (14.2-18.0) L Hematocrit 35.4 % (42.0-52.0) L Mean Corpuscular Volume 93 FL (80-99) Mean Corpuscular Hemoglobin 29.5 PG (27.0-31.0) Mean Corpuscular Hemoglobin Concent 31.9 G/DL (32.0-36.0) L Red Cell Distribution Width 13.3 % (11.6-14.8) Platelet Count 212 K/UL (150-450) Mean Platelet Volume 7.6 FL (6.5-10.1) Neutrophils (%) (Auto) 72.5 % (45.0-75.0) Lymphocytes (%) (Auto) 14.5 % (20.0-45.0) L Monocytes (%) (Auto) 11.5 % (1.0-10.0) H Eosinophils (%) (Auto) 1.0 % (0.0-3.0) Basophils (%) (Auto) 0.6 % (0.0-2.0) Sodium Level 135 MMOL/L (136-145) L Potassium Level 3.6 MMOL/L (3.5-5.1) Chloride Level 106 MMOL/L (98-107) Carbon Dioxide Level 26 MMOL/L (21-32) Anion Gap 3 mmol/L (5-15) L Blood Urea Nitrogen 7 mg/dL (7-18) Creatinine 0.6 MG/DL (0.55-1.30) Estimat Glomerular Filtration Rate mL/min (>60) Glucose Level 111 MG/DL (74-106) H Uric Acid 0.9 MG/DL (2.6-7.2) L Calcium Level 8.3 MG/DL (8.5-10.1) L Phosphorus Level 2.9 MG/DL (2.5-4.9) Magnesium Level 1.7 MG/DL (1.8-2.4) L Total Bilirubin 0.4 MG/DL (0.2-1.0) Aspartate Amino Transf (AST/SGOT) 29 U/L (15-37) Alanine Aminotransferase (ALT/SGPT) 24 U/L (12-78) Alkaline Phosphatase 89 U/L (46-116) C-Reactive Protein, Quantitative 18.0 mg/dL (0.00-0.90) H Pro-B-Type Natriuretic Peptide 1138 pg/mL (0-125) H Total Protein 6.4 G/DL (6.4-8.2) Albumin 1.3 G/DL (3.4-5.0) L Globulin 5.1 g/dL Albumin/Globulin Ratio 0.3 (1.0-2.7) L Height (Feet): 5 Height (Inches): 8.00 Weight (Pounds): 114 General Appearance: WD/WN, no apparent distress, alert Cardiovascular: normal rate Respiratory/Chest: normal breath sounds, no respiratory distress Abdominal Exam: normal bowel sounds, non tender, soft, GT site - c/d/i Extremities: non-tender Constance Hawkins NP Oct 06, 2018 11:43
[2018-10-06 12:00] VITALS: BP 117/92
--- NOTE | 2018-10-06 13:40 | Nephrology Progress Note ---
Assessment/Plan Problem List: (1) UTI (urinary tract infection) Assessment: pseudomonas (2) Pneumonia (3) Electrolyte abnormality (4) Anemia (5) Severe malnutrition (6) G tube feedings (7) Altered mental status Assessment Pneumonia / UTI Abnormal Lytes Anemia Dementia Prostate ca FTT ' Plan Dr Dewitt PMD informed me that patient is on Hospice and family want him home Subjective ROS Limited/Unobtainable: No Constitutional: Reports: malaise Objective Objective Last 24 Hour Vital Signs Date Time Temp Pulse Resp B/P (MAP) Pulse Ox O2 Delivery O2 Flow Rate FiO2 10/06/18 12:00 98.0 100 20 117/92 (100) 98 10/06/18 11:01 89 18 98 Nasal Cannula 2.0 28 10/06/18 10:53 89 19 97 Nasal Cannula 2.0 28 10/06/18 08:00 98.0 102 20 99/69 (79) 97 10/06/18 07:25 91 17 98 Nasal Cannula 2.0 28 10/06/18 07:16 95 Nasal Cannula 2.0 28 10/06/18 07:16 92 17 95 Nasal Cannula 2.0 28 10/06/18 04:00 98.1 103 18 122/74 (90) 97 10/06/18 03:49 107 18 98 Nasal Cannula 2.0 10/06/18 03:40 100 20 95 Nasal Cannula 2.0 28 10/06/18 00:00 98.6 105 17 103/57 (72) 94 10/05/18 22:29 104 20 95 Nasal Cannula 2.0 10/05/18 22:17 100 20 95 Nasal Cannula 2.0 10/05/18 20:40 Nasal Cannula 2.0 10/05/18 20:02 104 18 94 Nasal Cannula 2.0 28 10/05/18 20:00 100.1 109 20 100/63 (75) 98 10/05/18 19:49 92 20 98 Nasal Cannula 2.0 28 10/05/18 19:49 97 Nasal Cannula 2.0 28 10/05/18 19:49 92 20 97 Nasal Cannula 2.0 28 10/05/18 16:00 99.1 93 20 120/63 (82) 98 10/05/18 16:00 Nasal Cannula 2.0 Intake and Output 10/05/18 10/06/18 19:00 07:00 Intake Total 105 ml 1180.0 ml Output Total 200 ml Balance -95 ml 1180.0 ml Free Water 60 ml IV Total 50 ml 515.0 ml Tube Feeding 55 ml 605 ml Output Urine Total 200 ml # Voids 4 # Bowel Movements 1 Laboratory Tests 10/06/18 06:48: White Blood Count 8.8, Red Blood Count 3.82L, Hemoglobin 11.3L, Hematocrit 35.4L , Mean Corpuscular Volume 93, Mean Corpuscular Hemoglobin 29.5, Mean Corpuscular Hemoglobin Concent 31.9L, Red Cell Distribution Width 13.3, Platelet Count 212, Mean Platelet Volume 7.6, Neutrophils (%) (Auto) 72.5, Lymphocytes (%) (Auto) 14.5L, Monocytes (%) (Auto) 11.5H, Eosinophils (%) (Auto ) 1.0, Basophils (%) (Auto) 0.6, Sodium Level 135L, Potassium Level 3.6, Chloride Level 106, Carbon Dioxide Level 26, Anion Gap 3L, Blood Urea Nitrogen 7 , Creatinine 0.6, Estimat Glomerular Filtration Rate , Glucose Level 111H, Uric Acid 0.9L, Calcium Level 8.3L, Phosphorus Level 2.9, Magnesium Level 1.7L, Total Bilirubin 0.4, Aspartate Amino Transf (AST/SGOT) 29, Alanine Aminotransferase (ALT/SGPT) 24, Alkaline Phosphatase 89, C-Reactive Protein, Quantitative 18.0H, Pro-B-Type Natriuretic Peptide 1138H, Total Protein 6.4, Albumin 1.3L, Globulin 5.1, Albumin/Globulin Ratio 0.3L Height (Feet): 5 Height (Inches): 8.00 Weight (Pounds): 114 General Appearance: no apparent distress Cardiovascular: tachycardia Respiratory/Chest: decreased breath sounds Abdomen: soft Objective no change Colby Guerra MD Oct 06, 2018 13:40
--- NOTE | 2018-10-06 14:30 | Pulmonology Progress Note ---
Assessment/Plan Assessment/Plan Pulmonary Progress Note HPI: Patient is a 77-year-old male with a history of advanced dementia, prior intracranial bleed, previous seizures, prostate cancer s/p previous radiation therapy, recently discharged on 09/15/2018 after admission for aspiration pneumonia presents for shortness of breath. Admitted with ncreased shortness of breath, noted to have Pneumonia. Currently DNAR/DNI status. Antibiotics have been reduced from Zosyn/Vanco to Zosyn PMH: Prostate cancer status post radiation, Alzheimer dementia, anemia, hypokalemia, subdural hematoma Allergies: NO KNOWN DRUG ALLERGIES All Other Systems: limited - Due to dementia Physical Exam Vital Signs Noted General: Awake, confused, mild respiratory distress, cachectic and frail- appearing HEENT: NC/AT. EOMI. sunken eyes. Edentulous, dry mucous membranes Neck: Supple, trachea midline Chest Wall: No tenderness, no deformity Cardiovascular: Tachycardic. S1 and S2 normal. No murmur appreciated Resp: Occasional rhonchi Abdomen: Abdomen is soft, nondistended. Nontender Skin: Intact. No abrasions, laceration or rash over the exposed skin MSK: Atrophy of the upper and lower extremities. No lower extremity edema Neuro: Awake, Movements of all extremities, no seizures Impression: Pneumonia Dementia Prior intracranial bleed Previous seizures Prostate cancer s/p previous radiation therapy UTI (urinary tract infection) Plan Continue antibiotics per ID HHN Q4 CPT Aspiration precautions DNAR/DNI status EKG: Rate: tachycardiac Rhythm: NSR ST Segments: no acute changes Other Impression Left axis deviation Chest X-Ray: Bilateral infiltrates concerning for pneumonia Subjective ROS Limited/Unobtainable: No Allergies: Coded Allergies: NO KNOWN DRUG ALLERGIES (Unverified Allergy, Unknown, 03/22/14) Objective Last 24 Hour Vital Signs Date Time Temp Pulse Resp B/P (MAP) Pulse Ox O2 Delivery O2 Flow Rate FiO2 10/06/18 12:00 98.0 100 20 117/92 (100) 98 10/06/18 11:01 89 18 98 Nasal Cannula 2.0 28 10/06/18 10:53 89 19 97 Nasal Cannula 2.0 28 10/06/18 08:00 98.0 102 20 99/69 (79) 97 10/06/18 07:25 91 17 98 Nasal Cannula 2.0 28 10/06/18 07:16 95 Nasal Cannula 2.0 28 10/06/18 07:16 92 17 95 Nasal Cannula 2.0 28 10/06/18 04:00 98.1 103 18 122/74 (90) 97 10/06/18 03:49 107 18 98 Nasal Cannula 2.0 28 10/06/18 03:40 100 20 95 Nasal Cannula 2.0 28 10/06/18 00:00 98.6 105 17 103/57 (72) 94 10/05/18 22:29 104 20 95 Nasal Cannula 2.0 28 10/05/18 22:17 100 20 95 Nasal Cannula 2.0 28 10/05/18 20:40 Nasal Cannula 2.0 10/05/18 20:02 104 18 94 Nasal Cannula 2.0 28 10/05/18 20:00 100.1 109 20 100/63 (75) 98 10/05/18 19:49 92 20 98 Nasal Cannula 2.0 28 10/05/18 19:49 97 Nasal Cannula 2.0 28 10/05/18 19:49 92 20 97 Nasal Cannula 2.0 28 10/05/18 16:00 99.1 93 20 120/63 (82) 98 10/05/18 16:00 Nasal Cannula 2.0 Intake and Output 10/05/18 10/06/18 19:00 07:00 Intake Total 105 ml 1180.0 ml Output Total 200 ml Balance -95 ml 1180.0 ml Free Water 60 ml IV Total 50 ml 515.0 ml Tube Feeding 55 ml 605 ml Output Urine Total 200 ml # Voids 4 # Bowel Movements 1 Laboratory Tests 10/06/18 06:48: White Blood Count 8.8, Red Blood Count 3.82L, Hemoglobin 11.3L, Hematocrit 35.4L , Mean Corpuscular Volume 93, Mean Corpuscular Hemoglobin 29.5, Mean Corpuscular Hemoglobin Concent 31.9L, Red Cell Distribution Width 13.3, Platelet Count 212, Mean Platelet Volume 7.6, Neutrophils (%) (Auto) 72.5, Lymphocytes (%) (Auto) 14.5L, Monocytes (%) (Auto) 11.5H, Eosinophils (%) (Auto ) 1.0, Basophils (%) (Auto) 0.6, Sodium Level 135L, Potassium Level 3.6, Chloride Level 106, Carbon Dioxide Level 26, Anion Gap 3L, Blood Urea Nitrogen 7 , Creatinine 0.6, Estimat Glomerular Filtration Rate , Glucose Level 111H, Uric Acid 0.9L, Calcium Level 8.3L, Phosphorus Level 2.9, Magnesium Level 1.7L, Total Bilirubin 0.4, Aspartate Amino Transf (AST/SGOT) 29, Alanine Aminotransferase (ALT/SGPT) 24, Alkaline Phosphatase 89, C-Reactive Protein, Quantitative 18.0H, Pro-B-Type Natriuretic Peptide 1138H, Total Protein 6.4, Albumin 1.3L, Globulin 5.1, Albumin/Globulin Ratio 0.3L Current Medications Medications (Trade) Dose Ordered Sig/Alirio Route PRN Reason Start Time Stop Time Status Last Admin Dose Admin Acetaminophen (Tylenol) 650 mg Q6H PRN ORAL Mild Pain/Temp > 100.5 10/04/18 20:45 11/03/18 20:44 10/04/18 21:43 Albuterol/ Ipratropium (Albuterol/ Ipratropium) 3 ml Q4HRT HHN 10/05/18 19:00 10/10/18 18:59 10/06/18 10:52 Heparin Sodium (Porcine) (Heparin 5000 units/ml) 5,000 units EVERY 12 HOURS SUBQ 10/03/18 21:00 11/01/18 08:59 10/06/18 09:26 Lansoprazole (Prevacid) 30 mg BID GT 10/04/18 09:00 11/02/18 10:29 10/06/18 09:25 Levetiracetam 100 ml @ 400 mls/hr Q12HR IVPB 10/03/18 21:00 10/31/18 23:29 10/06/18 09:20 Piperacillin Sod/ Tazobactam Sod 3.375 gm/Sodium Chloride 110 ml @ 27.5 mls/hr Q8H IVPB 10/03/18 22:00 10/09/18 05:59 10/06/18 04:46 Tamsulosin HCl (Flomax) 0.4 mg BEDTIME ORAL 10/04/18 21:00 11/03/18 20:59 10/04/18 21:44 Jaleel Denise MD Oct 06, 2018 14:30
[2018-10-06] MEDS ORDERED: Sterile Water Irrig 1000ml IRRIG ONE (14:33)
[2018-10-06] MEDS ORDERED: NS 275ml ONE (14:34)
[2018-10-06 16:00] VITALS: BP 99/65
[2018-10-06] MEDS ORDERED: FLOMAX0.4 MG ORAL (18:12)
[2018-10-06 20:00] VITALS: BP 91/56
[2018-10-06] MEDS: Tamsulosin 0.4mg cap ORAL SCH (21:06)
[2018-10-06] MEDS ORDERED: Tubing IV Secondary IV ONE (21:44)
--- NOTE | 2018-10-08 15:59 | Discharge Summary ---
Discharge Summary Discharge Summary _ DATE OF ADMISSION: 10/01/2018 DATE OF DISCHARGE: 10/06/2018 ADMITTING MD BY: Dr. Jaleel Dewitt CONSULTANTS: Dr. Jaleel Burton [facility] HOSPITAL COURSE: Patient is a 77-year-old male, who is demented and with history of prostate CA was transferred by EMS to [place] due to another episode of aspiration. He was noted to have increased work of breathing in the morning and slowly deteriorated throughout the day. He was saturating 94% on room air. He was in mild respiratory distress according to EMS. On evaluation ED, he was saturating 94% on room air. He was placed on nonrebreather mask and was saturating 96%. Blood work did not show any leukocytosis. Hemoglobin and hematocrit were stable. Sodium 133. Potassium 5.9. Troponin was negative. Urinalyses showed faina urine with +2 blood, positive nitrite, +3 leukocyte esterase, 20-30 urine WBC. He was tachycardic with a heart rate of 130s. He was started on septic work-up. Chest x-ray showed bilateral infiltrates concerning for pneumonia. Family was present at bedside. CODE STATUS was unclear. He was then admitted for evaluation of sepsis, pneumonia and UTI. He was continued on G-tube feedings. G-tube was assessed by GI and appeared to be functioning well. He was recommended G-tube site care. He was given vancomycin and Zosyn by ID. He was given Reglan for GI motility. Patient was incontinent of urine. He was given Flomax. Electrolytes were repleted. Respiratory status was monitored. He was given nebulizer treatment. He was given chest physiotherapy. He was placed on aspiration precautions. Urine culture showed growth of Pseudomonas. Blood culture did not isolate any growth. CODE STATUS was changed to DNR/DNI. He was saturating well on 2 L nasal cannula. Patient was discharged back to hospice. FINAL DIAGNOSES: Pneumonia Dementia Old subdural hematoma Previous seizures Prostate CA status post previous radiation therapy Pseudomonas UTI Failure to thrive/severe protein calorie malnutrition Dysphagia on G-tube Dehydration Urinary incontinence Probable neurogenic bladder DISPOSITION: Home with hospice. DISCHARGE MEDICATIONS: Refer to Discharge Medication List. DISCHARGE INSTRUCTIONS: Follow-up in a week. I have been assigned to complete a discharge summary on this account, I was not involved with the patient's management.--J. Licauco, ELECTRONIC DEVICE REPAIRER Licauco,Rosario Flaherty ELECTRONIC DEVICE REPAIRER Oct 08, 2018 15:59
== END 2018-10-06 21:45 | disposition hospice, home (50) | DRG 177 ==
LOC: EDBD 15:37 → EDBEDREQ 17:46 → EDBEDREQSVC 17:46 → EMR 18:14 → 2W 18:23 → EDBEDREQ 20:07 → 4E 10-03 18:43
DX: J69.0 Pneumonitis due to inhalation of food and vomit (principal); E43 Unspecified severe protein-calorie malnutrition; N39.0 Urinary tract infection, site not specified; Z68.1 Body mass index [BMI] 19.9 or less, adult; J90 Pleural effusion, not elsewhere classified; Z43.1 Encounter for attention to gastrostomy; E86.0 Dehydration; R13.10 Dysphagia, unspecified; R62.7 Adult failure to thrive; Z85.46 Personal history of malignant neoplasm of prostate; Z66 Do not resuscitate; G30.9 Alzheimer's disease, unspecified; F02.80 Dementia in other diseases classified elsewhere, unspecified severity, without behavioral disturbance, psychotic disturbance, mood disturbance, and anxiety; N40.0 Benign prostatic hyperplasia without lower urinary tract symptoms; R32 Unspecified urinary incontinence; N31.9 Neuromuscular dysfunction of bladder, unspecified; Z92.3 Personal history of irradiation
CPT/HCPCS: 36415; 71045; 80048; 80053; 80061; 80076; 80202; 81003; 82550; 82553; 82607; 82728; 82746; 82977; 83540; 83550; 83605; 83735; 83880; 84100; 84153; 84443; 84484; 84550; 85007; 85025; 86140; 87040; 87081; 87086; 87181; 93005; 94640; 94664; 96361; 96365; 96366; 96368; 99291; J7620; J8499